=== PATIENT | male | born 1955 | race Caucasian/White ===

== ENCOUNTER 2017-10-01 20:18 | Observation (INO) ==
[2017-10-01] MEDS ORDERED: 0.9 % Sodium Chloride 500 ML IVC ONE ×2 (20:52→22:30)
[2017-10-01 21:14] LABS: Basophils % 0.4 %; Eosinophils # 0.1 K/mcL (0.0-0.6); Eosinophils % 1.1 %; Hematocrit 43.6 % (37.5-50.1); Hemoglobin 15.2 g/dL (12.9-16.9); Immature Granulocytes % 0.5 % (0-4); Mean Corpuscular HGB Conc 34.9 g/dL (31.6-35.5); Mean Corpuscular Hemoglobin 31.7 pg (28.0-33.3); Monocytes # 1.2 K/mcL (0.0-1.3); Monocytes % 11.9 %; Neutrophils # 6.9 K/mcL (1.6-8.9); Platelet Count 200 K/mcL (140-400); Red Blood Count 4.79 M/mcL (4.19-5.50); Red Cell Distribution Width 14.3 % (11.5-14.5); Segmented Neutrophils % 67.1 %
--- NOTE | 2017-10-01 21:30 | Emergency Department Note ---
Disposition Clinical Impression: Acute kidney injury Hypotension Qualifiers: Hypotension type: unspecified hypotension type Qualified Code(s): I95.9 - Hypotension, unspecified Disposition: Admitted As Inpatient Condition: Fair Time of Disposition: 00:34 General Adult HPI - General Chief complaint: ED General Medical Stated complaint: low bp Time Seen by Provider: 10/01/17 20:32 Source: patient Nursing Notes Reviewed: Yes Vital Signs Reviewed: Yes - History of Present Illness HPI Narrative: 62 old male presents from home for violation of low blood pressure. Just prior to arrival, patient felt dizzy and weak at home while sitting. He took his blood pressure twice which subsequent we sewed systolic readings in the 50s. During my valuation, his systolic blood pressure was in the 80s and he felt asymptomatic. He has no other complaints. Patient has not had any medication changes and has not taken any erroneous doses of his medications. PMH: Hypertension, hyperlipidemia, insulin independent type 2 diabetes with history of right toe amputation. CAD with stent 1. ROS: Positive: As above Negative: Fever, chills, nausea, vomiting, chest pain, palpitations, unusual back pain, trauma, headache, syncope Pain Scale: 5 - Related Data Home Medications Medication Instructions Recorded Confirmed Allopurinol [Zyloprim] 300 mg PO DAILY 02/13/15 08/26/16 Amitriptyline [Elavil] 50 mg PO HS 02/13/15 08/26/16 Aspirin 81 mg PO DAILY 02/13/15 08/26/16 Capsaicin 0.025% [Trixaicin] 1 appl TP QID 02/13/15 08/26/16 CarBAMazepine [Tegretol] 300 mg PO BID 02/13/15 08/26/16 Cholecalciferol (D-3) 1,000 unit PO DAILY 02/13/15 08/26/16 [Cholecalciferol (D-3)] Clopidogrel [Plavix] 75 mg PO DAILY 02/13/15 08/26/16 Clotrimazole 1% CRM [Lotrimin] 1 appl TP TID PRN 02/13/15 08/26/16 Divalproex (24 HR) [Depakote ER 1,500 mg PO HS 02/13/15 08/26/16 (24 HR)] Furosemide [Lasix] 120 mg PO QAM 02/13/15 08/26/16 Guaifenesin 400 mg PO BID PRN 02/13/15 08/26/16 Insulin Glargine,Hum.rec.anlog 40 unit SQ BID 02/13/15 08/26/16 [Lantus Solostar] Levothyroxine [Synthroid] 100 mcg PO 0630 02/13/15 08/26/16 Losartan [Cozaar] 100 mg PO DAILY 02/13/15 08/26/16 Magnesium Oxide [Magnesium] 400 mg PO DAILY 02/13/15 08/26/16 Metolazone [Zaroxolyn] 5 mg PO QMWF 02/13/15 08/26/16 Miconazole 2% ointment [Aloe [place] 1 appl TP TID PRN 02/13/15 08/26/16 Antifungal Ointment] Montelukast Sodium [Singulair] 10 mg PO DAILY 02/13/15 08/26/16 Oxycodone HCl [Oxycontin] 40 mg PO BID 02/13/15 08/26/16 Potassium Chloride [Klor-Con 10 meq PO DAILY 02/13/15 08/26/16 Sprinkle] Pregabalin [Lyrica] 200 mg PO TID 02/13/15 08/26/16 Rosuvastatin [Crestor] 40 mg PO HS 02/13/15 08/26/16 Spironolactone [Aldactone] 25 mg PO DAILY 02/13/15 08/26/16 Insulin Aspart Prot/Insuln Asp 16 - 18 unit SQ TID PRN 02/21/15 08/26/16 [Novolog Mix 70-30 Flexpen Syrn] Allergies Allergy/AdvReac Type Severity Reaction Status Date / Time No Known Allergies Allergy Verified 09/14/15 01:33 All systems ED: reviewed and negative except as stated. Review of Systems: As Per HPI Past Medical History - Past Medical History Medical history: Reports: arthritis, CHF, COPD, diabetes, hyperlipidemia, hypertension Psychiatric history: Reports: bipolar - Social History Smoking Status: Former smoker Smokeless Tobacco Status: No Alcohol use: Reports: none Drug use: Reports: none Physical Exam Vital Signs Reviewed General: Patient is alert, oriented, and in no acute distress. Head: atraumatic, normocephalic Eye: normal appearance, no scleral icterus, no conjunctival injection ENT: mucous membranes moist, normal external ear exam Neck: normal inspection, trachea midline, full ROM Chest: normal inspection, symmetric chest rise Respiratory: Obese. Good respiratory effort. Bilateral breath sounds are clear without wheezing, crackles, or rhonchi. Cardiovascular: Regular rate and rhythm. No clicks, rubs, gallops, or murmors. Normal heart sounds. Bilateral radial pulses 2/4 equal. Abdomen: Bowel sounds present normoactive x-4 quadrants. Abdomen is soft, nondistended, and nontender. No guarding or rebound. No organomegaly noted. Musculoskeletal: Spontaneously moving all extremities. Amputation of all toes on right foot. Skin: warm, dry, intact. Neuro: Alert and oriented x4. Sensation light touch intact. Psych: Patient's affect is appropriate for situation. - General General appearance: alert Course Course Narrative: EKG dated 10/01/17 at 20:43 interpreted as sinus rhythm with rate of 90. ME 153 , tourist 82, QTC 436. Normal axis. Nonspecific ST-T changes. Compared to previous dated 09/14/2015 showing no acute ischemic changes or comparison. Lab work concerning for acute kidney injury. Patient has received 2 boluses of 500 mg each (1 L total). Regimen clear. Systolic blood pressure is in the high 80s. Concerned that his acute kidney injury has slowed metabolism of his standard antihypertensives causing him to become hypotensive. Discussed the above the patient and he is agreement to admission for continued evaluation and management. I discussed the patient with the admitting hospitalist, Dr. Matson, who agrees to accept the patient for continued evaluation and management. Vital Signs Temperature 97.9 F 10/01/17 20:19 Pulse Rate 104 10/01/17 20:19 Respiratory Rate 20 10/01/17 20:19 Blood Pressure 88/55 10/01/17 20:19 O2 Sat by Pulse Oximetry 95 10/01/17 20:19 Temperature 98.3 F 10/02/17 00:00 Pulse Rate 92 10/02/17 00:00 Respiratory Rate 14 10/02/17 00:00 Blood Pressure 114/54 10/02/17 00:00 O2 Sat by Pulse Oximetry 95 10/02/17 00:00 Oxygen Delivery Oxygen Delivery Nasal Cannula Medical Decision Making - Lab Data Result diagrams: 10/01/17 21:02 10/01/17 21:02 Lab Results 10/01/17 10/01/17 10/01/17 Range/Units 21:02 21:02 21:02 WBC 10.2 (4.3-11.1) K/mcL RBC 4.79 (4.19-5.50) M/mcL Hgb 15.2 (12.9-16.9) g/dL Hct 43.6 (37.5-50.1) % MCV 91.0 (83.0-100.0) fL MCH 31.7 (28.0-33.3) pg MCHC 34.9 (31.6-35.5) g/dL RDW 14.3 (11.5-14.5) % Plt Count 200 (140-400) K/mcL MPV 11.0 (9.4-12.4) fL Immature Gran % 0.5 (0-4) % Seg Neutrophils % 67.1 % Lymphocytes % 19.0 % Monocytes % 11.9 % Eosinophils % 1.1 % Basophils % 0.4 % Neutrophils # 6.9 (1.6-8.9) K/mcL Lymphocytes # 2.0 (0.6-4.6) K/mcL Monocytes # 1.2 (0.0-1.3) K/mcL Eosinophils # 0.1 (0.0-0.6) K/mcL Basophils # 0.0 (0.0-0.2) K/mcL Sodium 133 L (136-145) mEq/L Potassium 3.5 (3.5-5.1) mEq/L Chloride 84 L (98-107) mEq/L Carbon Dioxide 35 H (23-29) mEq/L BUN 62 H (8-23) mg/dL Creatinine 3.04 H (0.70-1.30) mg/dL Est GFR ( Amer) 25 L (> 60) Est GFR (Non-Af Amer) 21 L (> 60) BUN/Creatinine Ratio 20 (6-26) Glucose 187 H (70-105) mg/dL Calculated Osmolality 299 (280-300) Lactic Acid 2.9 H (0.5-2.2) mmol/L Calcium 9.5 (8.6-10.3) mg/dL Troponin I < 0.03 (< 0.04) ng/mL
[2017-10-01 21:33] LABS: BUN/Creatinine Ratio 20 (6-26); Blood Urea Nitrogen 62 mg/dL (8-23); Calcium 9.5 mg/dL (8.6-10.3); Carbon Dioxide 35 mEq/L (23-29); Chloride 84 mEq/L (98-107); Glucose 187 mg/dL (70-105); Osmolality,Calculated 299 (280-300); Potassium 3.5 mEq/L (3.5-5.1); Sodium 133 mEq/L (136-145); eGFR For African Americans 25 (> 60); eGFR For Non-African Americans 21 (> 60)
[2017-10-01 21:35] LABS: Troponin I < 0.03 ng/mL (< 0.04)
--- NOTE | 2017-10-01 21:47 | Emergency Department Note ---
Disposition Clinical Impression: Hypotension Qualifiers: Hypotension type: unspecified hypotension type Qualified Code(s): I95.9 - Hypotension, unspecified Disposition: Still a Patient Forms: ED Satisfaction Letter, Work/School Release General Adult HPI - General Chief complaint: ED General Medical Stated complaint: low bp Time Seen by Provider: 10/01/17 20:32 Source: patient - History of Present Illness Pain Scale: 5 - Related Data Home Medications Medication Instructions Recorded Confirmed Allopurinol [Zyloprim] 300 mg PO DAILY 02/13/15 08/26/16 Amitriptyline [Elavil] 50 mg PO HS 02/13/15 08/26/16 Aspirin 81 mg PO DAILY 02/13/15 08/26/16 Capsaicin 0.025% [Trixaicin] 1 appl TP QID 02/13/15 08/26/16 CarBAMazepine [Tegretol] 300 mg PO BID 02/13/15 08/26/16 Cholecalciferol (D-3) 1,000 unit PO DAILY 02/13/15 08/26/16 [Cholecalciferol (D-3)] Clopidogrel [Plavix] 75 mg PO DAILY 02/13/15 08/26/16 Clotrimazole 1% CRM [Lotrimin] 1 appl TP TID PRN 02/13/15 08/26/16 Divalproex (24 HR) [Depakote ER 1,500 mg PO HS 02/13/15 08/26/16 (24 HR)] Furosemide [Lasix] 120 mg PO QAM 02/13/15 08/26/16 Guaifenesin 400 mg PO BID PRN 02/13/15 08/26/16 Insulin Glargine,Hum.rec.anlog 40 unit SQ BID 02/13/15 08/26/16 [Lantus Solostar] Levothyroxine [Synthroid] 100 mcg PO 0630 02/13/15 08/26/16 Losartan [Cozaar] 100 mg PO DAILY 02/13/15 08/26/16 Magnesium Oxide [Magnesium] 400 mg PO DAILY 02/13/15 08/26/16 Metolazone [Zaroxolyn] 5 mg PO QMWF 02/13/15 08/26/16 Miconazole 2% ointment [Aloe [place] 1 appl TP TID PRN 02/13/15 08/26/16 Antifungal Ointment] Montelukast Sodium [Singulair] 10 mg PO DAILY 02/13/15 08/26/16 Oxycodone HCl [Oxycontin] 40 mg PO BID 02/13/15 08/26/16 Potassium Chloride [Klor-Con 10 meq PO DAILY 02/13/15 08/26/16 Sprinkle] Pregabalin [Lyrica] 200 mg PO TID 02/13/15 08/26/16 Rosuvastatin [Crestor] 40 mg PO HS 02/13/15 08/26/16 Spironolactone [Aldactone] 25 mg PO DAILY 02/13/15 08/26/16 Insulin Aspart Prot/Insuln Asp 16 - 18 unit SQ TID PRN 02/21/15 08/26/16 [Novolog Mix 70-30 Flexpen Syrn] Allergies Allergy/AdvReac Type Severity Reaction Status Date / Time No Known Allergies Allergy Verified 09/14/15 01:33 Past Medical History - Past Medical History Medical history: Reports: arthritis, CHF, COPD, diabetes, hyperlipidemia, hypertension Psychiatric history: Reports: bipolar - Social History Smoking Status: Former smoker Smokeless Tobacco Status: No Alcohol use: Reports: none Drug use: Reports: none Physical Exam - General General appearance: alert Course - Reevaluation(s) Reevaluation #1: Attestation note I examined this patient and my medical decision-making was reviewed with the emergency medicine resident. I agree with the documented findings, disposition and treatment plan as described except to the extent set forth below. Patient seen with emergency medicine resident Danyel Ron, Please see a copy of his note for details of the H&P, ED evaluation, management and disposition. I have independently evaluated the patient and confirmed appropriate portions of the history and physical exam. Briefly: 62-year-old male diabetic history of hypertension and chronic kidney disease presents with low blood pressure. Patient said he was in his usual [facility] until prior to arrival he said he felt weak and tired and lightheaded took his blood pressure with systolic BP at home. Which was confirmed here. Patient says he feels tired. Denies nausea vomiting fevers chills recent medication changes X exotic food recreational drugs or ill contacts. Patient getting IV fluid bolus screening labs x-ray disposition pending. Time: 21:45 Vital Signs Temperature 97.9 F 10/01/17 20:19 Pulse Rate 104 10/01/17 20:19 Respiratory Rate 20 10/01/17 20:19 Blood Pressure 88/55 10/01/17 20:19 O2 Sat by Pulse Oximetry 95 10/01/17 20:19 Temperature 97.9 F 10/01/17 20:22 Pulse Rate 104 10/01/17 20:22 Respiratory Rate 20 10/01/17 20:22 Blood Pressure 88/55 10/01/17 20:22 O2 Sat by Pulse Oximetry 95 10/01/17 20:22 Oxygen Delivery Oxygen Delivery Room Air Medical Decision Making - Lab Data Result diagrams: 10/01/17 21:02 10/01/17 21:02 Lab Results 10/01/17 10/01/17 10/01/17 Range/Units 21:02 21:02 21:02 WBC 10.2 (4.3-11.1) K/mcL RBC 4.79 (4.19-5.50) M/mcL Hgb 15.2 (12.9-16.9) g/dL Hct 43.6 (37.5-50.1) % MCV 91.0 (83.0-100.0) fL MCH 31.7 (28.0-33.3) pg MCHC 34.9 (31.6-35.5) g/dL RDW 14.3 (11.5-14.5) % Plt Count 200 (140-400) K/mcL MPV 11.0 (9.4-12.4) fL Immature Gran % 0.5 (0-4) % Seg Neutrophils % 67.1 % Lymphocytes % 19.0 % Monocytes % 11.9 % Eosinophils % 1.1 % Basophils % 0.4 % Neutrophils # 6.9 (1.6-8.9) K/mcL Lymphocytes # 2.0 (0.6-4.6) K/mcL Monocytes # 1.2 (0.0-1.3) K/mcL Eosinophils # 0.1 (0.0-0.6) K/mcL Basophils # 0.0 (0.0-0.2) K/mcL Sodium 133 L (136-145) mEq/L Potassium 3.5 (3.5-5.1) mEq/L Chloride 84 L (98-107) mEq/L Carbon Dioxide 35 H (23-29) mEq/L BUN 62 H (8-23) mg/dL Creatinine 3.04 H (0.70-1.30) mg/dL Est GFR ( Amer) 25 L (> 60) Est GFR (Non-Af Amer) 21 L (> 60) BUN/Creatinine Ratio 20 (6-26) Glucose 187 H (70-105) mg/dL Calculated Osmolality 299 (280-300) Lactic Acid 2.9 H (0.5-2.2) mmol/L Calcium 9.5 (8.6-10.3) mg/dL Troponin I < 0.03 (< 0.04) ng/mL
[2017-10-02 01:52] LABS: Bilirubin,Urine Negative (Negative); Blood,Urine Trace (Negative); Clarity,Urine Clear (Clear); Color,Urine Yellow (Yellow); Glucose,Urine (UA) Normal (Normal); Ketones,Urine Negative (Negative); Leukocyte Esterase,Urine Negative (Negative); Nitrite,Urine Negative (Negative); Protein,Urine Trace mg/dL (Neg-Trace); Specific Gravity,Urine 1.013 (1.010-1.025); Urobilinogen,Urine Normal (Normal)
[2017-10-02 01:55] LABS: Bacteria,Urine None Seen per hpf (None-Few); Hyaline Casts,Urine None Seen per lpf (None-Few); RBC,Urine 0-3 per hpf (0-3); Squamous Epithelial Cell,Urine Many per lpf (None-Few); WBC,Urine 0-3 per hpf (0-3)
[2017-10-02] MEDS ORDERED: Naloxone 0.4 MG/ML INJ IVP PRN (02:43)
[2017-10-02] MEDS ORDERED: D5% in Water 1,000 ML IVC PRN (02:43)
[2017-10-02] MEDS ORDERED: Dextrose Gel 15 GM/37.5 ML TUBE PO PRN ×2 (02:43)
[2017-10-02] MEDS ORDERED: *HR* Dextrose 50 % in Water (Syg) 50 ML SYRINGE IVP PRN (02:43)
[2017-10-02] MEDS ORDERED: Acetaminophen 325 MG TABLET PO PRN (02:43)
[2017-10-02] MEDS: 0.9 % Sodium Chloride 1,000 ML IVC SCH ×2 (03:03→14:28)
[2017-10-02] MEDS ORDERED: 0.9 % Sodium Chloride 1,000 ML IVC ONE (03:35)
--- NOTE | 2017-10-02 04:01 | Internal Med History&Physical ---
Date of Encounter: 10/02/17 Time of Encounter: 02:20 Internal Medicine - H&P: HPI Chief complaint: low BP, weak Admitted From: Emergency Dept Plans for Post Hospital Care: Home History of present illness: Mr. Edmondson is a 62 year old male who presents to the ER tonight with complaints of feeling weak and low blood pressure. He was taking a midafternoon nap and when he awoke from his nap, he was checking his glucose and noted feeling quite weak and lightheaded and dizzy. Glucose level was 170. He checked his blood pressure and it was running in the 60s systolic. He checked again, and it still remained low. His therefore brought into the ER. In the ER, blood pressure was in the 50s systolic and responded nicely to 2 small IV fluid boluses of 500 mils. Workup in ER revealed patient to have evidence of acute renal failure with a creatinine of 3.04. He does have CKD, but his renal function baseline is about 1.4 to 1.8. He was therefore admitted to hospitalist service. Upon my assessment of the patient, he is sitting up in bed and asymptomatic. He denies any fevers, chills, cough, shortness of breath, chest pain, vomiting, or diarrhea. He denies any recent medication changes. He is on multiple medications including antihypertensives, multiple diuretics, and diabetic medications. He denies working outside in excessive heat with excessive sweat. He denies any other volume loss. However, he is on multiple diuretics and I am concerned that over time, he might have had excessive volume loss. Past Med Surg Social Fam HX - Past Medical History Attestation: Yes The following information was validated with the patient. Source: patient, old records reviewed Medical history: arthritis, CHF, COPD, diabetes, hyperlipidemia, hypertension Additional medical history: PERIPHERAL VASCULAR DISEASE, NEUROPOTHY, Psychiatric history: bipolar - Past Surgical History Additional surgical history: LEFT TOE AMPUTATION, RIGHT FOOT AMPUTATION, TENS IMPLANT - Social History Smoking Status: Former smoker Smokeless Tobacco Status: No Alcohol use: none Drug use: none Current living situation: Home, With Family Activity Level: Independent ambulation Recent Out of Country Travel Within the Last 8 Weeks: No - Family History Father History Unknown: Yes Adopted: No Family Member Ethnicity: Non- Living Status: Hx Family Cardiac Disorders: Yes (Heart murmur) Internal Medicine - H&P: Meds Allopurinol [Zyloprim] 300 mg PO DAILY 02/13/15 [History] Amitriptyline [Elavil] 50 mg PO HS 02/13/15 [History] Aspirin 81 mg PO DAILY 02/13/15 [History] Capsaicin 0.025% [Trixaicin] 1 appl TP QID 02/13/15 [History] CarBAMazepine [Tegretol] 300 mg PO BID 02/13/15 [History] Cholecalciferol (D-3) [Cholecalciferol (D-3)] 1,000 unit PO DAILY 02/13/15 [ History] Clopidogrel [Plavix] 75 mg PO DAILY 02/13/15 [History] Clotrimazole 1% CRM [Lotrimin] 1 appl TP TID PRN 02/13/15 [History] Divalproex (24 HR) [Depakote ER (24 HR)] 1,500 mg PO HS 02/13/15 [History] Furosemide [Lasix] 120 mg PO QAM 02/13/15 [History] Guaifenesin 400 mg PO BID PRN 02/13/15 [History] Insulin Glargine,Hum.rec.anlog [Lantus Solostar] 40 unit SQ BID 02/13/15 [ History] Levothyroxine [Synthroid] 100 mcg PO 0630 02/13/15 [History] Losartan [Cozaar] 100 mg PO DAILY 02/13/15 [History] Magnesium Oxide [Magnesium] 400 mg PO DAILY 02/13/15 [History] Metolazone [Zaroxolyn] 5 mg PO QMWF 02/13/15 [History] Miconazole 2% ointment [Aloe [place] Antifungal Ointment] 1 appl TP TID PRN [History] Montelukast Sodium [Singulair] 10 mg PO DAILY 02/13/15 [History] Oxycodone HCl [Oxycontin] 40 mg PO BID 02/13/15 [History] Potassium Chloride [Klor-Con Sprinkle] 10 meq PO DAILY 02/13/15 [History] Pregabalin [Lyrica] 200 mg PO TID 02/13/15 [History] Rosuvastatin [Crestor] 40 mg PO HS 02/13/15 [History] Spironolactone [Aldactone] 25 mg PO DAILY 02/13/15 [History] Insulin Aspart Prot/Insuln Asp [Novolog Mix 70-30 Flexpen Syrn] 16 - 18 unit SQ TID PRN 02/21/15 [History] 3 Allergy/AdvReac Type Severity Reaction Status Date / Time No Known Allergies Allergy Verified 09/14/15 01:33 - Constitutional Constitutional: no chills, no fever(s), no night sweats - EENT Eyes: no blurry vision, no change in vision Ears: no ear pain, no tinnitus Nose, mouth and throat: no nasal congestion, no sore throat - Cardiovascular Cardiovascular ROS IM: diaphoresis, lightheadedness, no chest pain, no dyspnea, no dyspnea on exertion, no orthopnea, no palpitations, no paroxysmal nocturnal dyspnea, no syncope - Respiratory Respiratory: no cough, no dyspnea, no hemoptysis, no chest congestion, no excessive phlegm production - Gastrointestinal Gastrointestinal: no abdominal pain, no diarrhea, no hematemesis, no hematochezia, no melena, no nausea, no vomiting - Genitourinary Genitourinary ROS male: no dysuria, no flank pain, no hematuria - Musculoskeletal Musculoskeletal ROS IM: no arthralgias, no back pain - Integumentary Integumentary IM: no rash, no jaundice - Neurological Neurological ROS: dizziness, no focal weakness, no frequent falls, no headache(s ), no weakness - Psychiatric Psychiatric: no anxiety, no depression - Endocrine Endocrine IM: no polydipsia, no polyuria - Allergic/Immunologic Allergic/Immunologic: no GI upset with certain foods - Constitutional Vitals: Temp Pulse Resp BP Pulse Ox 98.4 F 92 16 71/42 88 10/02/17 03:14 10/02/17 00:00 10/02/17 03:14 10/02/17 03:16 10/02/17 03:14 General appearance: Present: cooperative, A&O X 3, pleasant, no acute distress, answers questions appropriately - Head Head exam: Present: atraumatic, normal inspection - Eye Eye exam: Present: EOMI, normal appearance, PERRL. Absent: scleral icterus Pupils: Present: normal accommodation - ENT ENT exam: Present: mucous membranes dry, normal exam, normal oropharynx - Neck Neck exam general surgery: Present: full ROM, supple. Absent: lymphadenopathy, tenderness, nuchal rigidity, thyromegaly - Expanded Neck Exam Neck exam: Absent: carotid bruit - Respiratory Respiratory exam: Present: CTAB. Absent: chest wall tenderness, rales, respiratory distress, rhonchi, wheezes - Cardiovascular Cardiovascular exam: Present: RRR, +S1, +S2. Absent: diastolic murmur, JVD, systolic murmur - GI/Abdominal GI/Abdominal exam: Present: normal bowel sounds, soft. Absent: hepatomegaly, mass, splenomegaly, tenderness - Extremities Exam Extremities exam: Present: normal capillary refill, warm, radial pulses palpable and symmetrical. Absent: calf tenderness, joint swelling - Back Exam Back exam: Present: normal inspection. Absent: CVA tenderness (L), CVA tenderness (R) - Neurological Exam Neurological exam: Present: alert, CN II-XII intact, oriented X3, no focal deficits - Psychiatric Psychiatric exam: Present: normal affect, normal mood - Skin Skin exam: Present: dry, intact, warm Additional comments: palpable TENS unit in right mid abdomen Internal Med - H&P Results - Labs CBC & Chem 7: 10/01/17 21:02 10/01/17 21:02 Labs: Urine 10/02/17 Range/Units 01:40 Urine Color Yellow (Yellow) Urine Clarity Clear (Clear) Urine pH 7.0 (5.0-8.0) pH Units Ur Specific [place] 1.013 (1.010-1.025) Urine Protein Trace (Neg-Trace) mg/dL Urine Glucose (UA) Normal (Normal) mg/dL - EKG Data -: EKG Interpreted by Myself EKG shows normal: sinus rhythm - EKG Data Prior EKG available for review: yes When compared to previous EKG: there is no significant change EKG comments: 10/02/17 04:06 NSR; no acute changes - Diagnostic Studies Chest x-ray Status: image reviewed by me - Assessment and plan (1) Hypotension Current Visit: Yes Status: Acute Assessment and plan: 1. Suspect medication effect/possible unintentional overdose. 2. Hold BP meds and diuretics. 3. Hydrate with IVF and monitor BP closely. 4. No history or exam findings to suggest infectious etiology. Qualifiers: Hypotension type: hypotension due to hypovolemia Qualified Code(s): I95.89 - Other hypotension; E86.1 - Hypovolemia (2) Acute kidney injury Current Visit: Yes Status: Acute Assessment and plan: 1. Likely due yo volume loss and hypotension. 2. IVF as above. 3. Hold BP meds and monitor renal function. 4. May need nephrology consult if renal function does not improve. (3) Diabetes mellitus Current Visit: Yes Status: Chronic Assessment and plan: 1. Continue home basal insulin once verified. 2. Will use low dose SSI and monitor glucose closely with insulin adjustment as needed. Qualifiers: Diabetes mellitus type: type 1 Diabetes mellitus complication status: with circulatory complication Diabetes mellitus complication detail: with other circulatory complications Qualified Code(s): E10.59 - Type 1 diabetes mellitus with other circulatory complications (4) DVT prophylaxis Current Visit: Yes Status: Acute Assessment and plan: 1. Heparin SQ.
[2017-10-02 05:32] LABS: Prothrombin Time 11.2 Seconds (9.4-12.1)
[2017-10-02 05:35] LABS: Activated Partial Thrombo Time 33.2 Seconds (26.0-36.0)
[2017-10-02 05:43] LABS: Alanine Aminotransferase 14 Units/L (7-52); Albumin/Globulin Ratio 1.4 (1.1-2.2); Alkaline Phosphatase 77 Units/L (34-104); Aspartate Amino Transferase 20 Units/L (13-39); BUN/Creatinine Ratio 23 (6-26); Bilirubin,Total 0.6 mg/dL (0.3-1.0); Blood Urea Nitrogen 62 mg/dL (8-23); Calcium 8.7 mg/dL (8.6-10.3); Carbon Dioxide 32 mEq/L (23-29); Chloride 89 mEq/L (98-107); Globulin 2.8 g/dL (2.4-3.5); Glucose 140 mg/dL (70-105); Osmolality,Calculated 292 (280-300); Sodium 131 mEq/L (136-145); Total Protein 6.8 g/dL (6.4-8.9); Troponin I < 0.03 ng/mL (< 0.04); eGFR For African Americans 29 (> 60); eGFR For Non-African Americans 24 (> 60)
[2017-10-02] MEDS: Insulin LISPRO 300 UNITS/3 ML VIAL SQ SCH ×3 (07:54→16:41)
[2017-10-02] MEDS: *HR* OxyCODONE/APAP 5/325 TABLET PO PRN (10:53)
[2017-10-02] MEDS: Pregabalin 75 MG CAPSULE PO SCH ×2 (11:16→21:20)
--- NOTE | 2017-10-02 15:33 | Internal Med Progress Note ---
Date of Encounter: 10/02/17 Time of Encounter: 15:30 - Assessment and plan (1) Hypotension Current Visit: Yes Status: Acute Assessment and plan: with SBPs in 50s-60s on arrival. Possibly secondary to medication effect/ possible unintentional overdose. BP improving with IV fluids. Continue to hold BP medication and diuretics. Afebrile, no levator WBC, no tachycardia. Appears to have some cellulitis lower extremity but do not suspect infectious source is cause of hypotension. Continue IV fluids. Monitor BP Qualifiers: Hypotension type: hypotension due to hypovolemia Qualified Code(s): I95.89 - Other hypotension; E86.1 - Hypovolemia (2) Acute kidney injury Current Visit: Yes Status: Acute Assessment and plan: Cr 3.04 on arrival. Suspect he has some component of CTD creatinine range from 1.1-2.0 since 2015. Suspect prerenal with hypotension. Avoid nephrotoxic agents. Continue IV fluids. Monitor repeat renal function. (3) Cellulitis Current Visit: Yes Status: Acute Assessment and plan: to bilateral lower extremities; appears worse to the left leg. No recent ATB. Follows with podiatry at the [place]. Start ceftriaxone. Qualifiers: Site of cellulitis: extremity Laterality: left Qualified Code(s): L03.032 - Cellulitis of left toe (4) Diabetes mellitus Current Visit: Yes Status: Chronic Assessment and plan: per hx. Holding home oral hypo-Lasix. SSI. Monitor blood sugar and titrate PRN. Hgb A1c pending Qualifiers: Diabetes mellitus type: type 1 Diabetes mellitus complication status: with circulatory complication Diabetes mellitus complication detail: with other circulatory complications Qualified Code(s): E10.59 - Type 1 diabetes mellitus with other circulatory complications (5) Chronic pain Current Visit: Yes Status: Acute Assessment and plan: Chronic lower extremity pain. On Percocet, OxyContin and Lyrica at home. OAARS verified 10/02/17. Continue home pain medicine cautiously as BP has been hypotensive Qualifiers: Chronic pain type: chronic pain syndrome Qualified Code(s): G89.4 - Chronic pain syndrome (6) Seizure Current Visit: Yes Status: Acute Assessment and plan: per hx. continue home AEDs. Seizure percussions. (7) DVT prophylaxis Current Visit: Yes Status: Acute Assessment and plan: heparin - Time Spent With Patient Total time spent is greater than 50% in coordination of care (as documented) at patient's floor/unit and/or counseling patient: - Subjective Interval history: Seen and examined at bedside. Patient is new to me, information obtained from chart review and patient report. Patient and at bedside and are upset regarding his pain medication. I advised patient and that we do not have a current list of his medication that is why occasions were not resumed in a timely manner. Furthermore I did run an oars report earlier this morning and was able to verify pain medications and those were reordered. Patient says he feels about the same. Still complaining of left lower leg pain. - Constitutional Vitals: Temp Pulse Resp BP Pulse Ox 98.8 F 93 18 105/55 93 10/02/17 11:45 10/02/17 11:45 10/02/17 11:45 10/02/17 11:45 10/02/17 11:45 General appearance: Present: cooperative, A&O X 3, no acute distress, answers questions appropriately. Absent: pleasant - Head Head exam: Present: atraumatic, normocephalic - Eye Eye exam: Present: PERRL, conjuntiva pink, sclera anicteric Pupils: Present: PERRL - Neck Neck exam general surgery: Present: supple, trachea midline. Absent: lymphadenopathy - Respiratory Respiratory exam: Present: CTAB. Absent: accessory muscle use, rales, rhonchi, wheezes - Cardiovascular Cardiovascular exam: Present: RRR, +S1, +S2. Absent: diastolic murmur, gallop, rubs, systolic murmur - GI/Abdominal GI/Abdominal exam: Present: normal bowel sounds, soft, no peritoneal signs. Absent: distended, tenderness - Extremities Exam Extremities exam: Present: pedal edema, warm, radial pulses palpable and symmetrical. Absent: calf tenderness, cyanotic Additional comments: I lateral lower extremity edema with right foot partial amputation and digit indication of left foot. Erythema to left foot. - Neurological Exam Neurological exam: Present: CN II-XII intact, oriented X3, no focal deficits. Absent: pronater drift, facial droop, speech deficit - Skin Skin exam: Present: dry, intact Internal Medicine: Result - Labs CBC & Chem 7: 10/01/17 21:02 10/02/17 05:10 Labs: BMP 10/02/17 05:10 Sodium 131 L Potassium 3.0 L Chloride 89 L Carbon Dioxide 32 H BUN 62 H Creatinine 2.71 H Glucose 140 H Calcium 8.7 Cardiac Enzymes 10/02/17 10/02/17 Range/Units 05:10 11:13 Troponin I < 0.03 < 0.03 (< 0.04) ng/mL Liver Function 10/02/17 Range/Units 05:10 Total Bilirubin 0.6 (0.3-1.0) mg/dL AST 20 (13-39) Units/L ALT 14 (7-52) Units/L Alkaline Phosphatase 77 (34-104) Units/L Albumin 4.0 (3.5-5.7) g/dL Urine 10/02/17 Range/Units 01:40 Urine Color Yellow (Yellow) Urine Clarity Clear (Clear) Urine pH 7.0 (5.0-8.0) pH Units Ur Specific [place] 1.013 (1.010-1.025) Urine Protein Trace (Neg-Trace) mg/dL Urine Glucose (UA) Normal (Normal) mg/dL - ABG Interpretation ABG results: PT/INR, D-dimer PT 11.2 Seconds (9.4-12.1) 10/02/17 05:10 Consult Discharge Plan - Plan [facility]errals: [facility] [Primary Care Provider[facility] -
[2017-10-02] MEDS: *HR* OxyCODONE ER (12 HR) 20 MG TABLET PO SCH (16:06)
[2017-10-02] MEDS: cefTRIAXone 1,000 MG in Water for inj. (sterile) 20 ML 10 ML IVP SCH (16:06)
[2017-10-02] MEDS ORDERED: *HR* OxyCODONE ER (12 HR) 20 MG TABLET PO SCH (18:00)
[2017-10-02] MEDS ORDERED: Divalproex (24 HR) 500 MG TABLET PO SCH (21:00)
[2017-10-02] MEDS: *HR* Heparin 5,000 UNIT/ML VIAL SQ SCH (21:20)
[2017-10-02] MEDS: carBAMazepine 200 MG TABLET PO SCH (21:21)
[2017-10-03] MEDS: *HR* OxyCODONE/APAP 5/325 TABLET PO PRN (00:09)
[2017-10-03] MEDS: 0.9 % Sodium Chloride 1,000 ML IVC SCH ×2 (00:13→10:15)
[2017-10-03 05:02] LABS: Hematocrit 38.9 % (37.5-50.1); Mean Corpuscular Hemoglobin 31.9 pg (28.0-33.3); Mean Corpuscular Volume 91.3 fL (83.0-100.0); Mean Platelet Volume 10.2 fL (9.4-12.4); Platelet Count 135 K/mcL (140-400); Red Blood Count 4.26 M/mcL (4.19-5.50)
[2017-10-03 05:03] LABS: Hemoglobin 13.6 g/dL (12.9-16.9)
[2017-10-03 05:28] LABS: Calcium 8.9 mg/dL (8.6-10.3); Potassium 3.5 mEq/L (3.5-5.1)
[2017-10-03] MEDS: *HR* Heparin 5,000 UNIT/ML VIAL SQ SCH ×2 (06:02→13:06)
[2017-10-03] MEDS: *HR* OxyCODONE ER (12 HR) 20 MG TABLET PO SCH (06:02)
[2017-10-03] MEDS: Insulin LISPRO 300 UNITS/3 ML VIAL SQ SCH ×3 (08:11→16:20)
[2017-10-03] MEDS: Pregabalin 75 MG CAPSULE PO SCH (08:12)
[2017-10-03] MEDS: carBAMazepine 200 MG TABLET PO SCH (08:12)
[2017-10-03] MEDS ORDERED: Aspirin Enteric Coated 81 MG Tablet PO SCH (09:00)
[2017-10-03] MEDS ORDERED: Leptospermum Honey Gel 44 ML TUBE TP SCH (09:00)
[2017-10-03 09:29] LABS: Estimated Average Glucose 157 mg/dl; Hemoglobin A1C 7.1 %
--- NOTE | 2017-10-03 10:02 | Electrocardiograph Report ---
[place] [id number] Test Date: 2017-10-01 Pat Name: Terrell Edmondson Department: 104 Room: 3B Gender: M [employer]: NATALIE : 1955 Requested By: Krish Khan Order Number: [id number] Reading MD: David Juarez Measurements Intervals [place] Rate: 90 P: 45 CA: 153 QRS: 45 QRSD: 92 T: 55 QT: 388 QTc: 436 Interpretive Statements SINUS RHYTHM LOW QRS VOLTAGE IN PRECORDIAL LEADS Electronically Signed On 10-03-2017 10:00:05 EDT by David Juarez
--- NOTE | 2017-10-03 11:55 | Nephrology Consult Note ---
Date of Encounter: 10/03/17 Time of Encounter: 12:00 Assessment and Plan (1) Acute kidney injury Status: Acute Elevated SCr in the setting of profound hypotension while on high dose diuretics SCr already improving though baseline unclear. Pt wants to go home today and given improvement seems reasonable. Discussed at great lengths need for low sodium diet for his CHF management along with fluid restriction Will also adjust his diuretics: will stop lasix and switch to bumex 2mg bid, stop zaroxylyn and continue aldactone 25mg daily. Will like to followup with patient within 2-[facility] of fluid balance Advised avoidance of nephrotoxins if possible (2) Hypotension Status: Acute Resolved after aggressive fluid repletion Qualifiers: Hypotension type: hypotension due to hypovolemia Qualified Code(s): I95.89 - Other hypotension; E86.1 - Hypovolemia History of Present Illness - Reason for Consult Consult date: 10/03/17 Acute Kidney Injury Requesting physician: Raisa Willoughby - History of Present Illness 62 y o male With PMH of DM, HTN, COPD and CHF admitted with generalized weakness found very hypotensive. SCR noted elevated at 3.04, GFR 21. Baseline unclear as ther are no other labs in the [facility] system this year. Last year GFR noted >60 on only one lab and previous years show GFR fluctuating from 30s to 40s to 50s. SCr already improving by the time I saw patient with SCr at 1.89, GFR 36 after aggresive volume repletion and holding his diuretics and antihypertensives. Of note, pt was taking high dose lasix at 120mg qam and 80mg qpm along with zaroxylyn 5mg daily and aldactone 25mg daily. He reports feeling thirsty alot but was also concerned about having recurrent CHF exacerbations. Past Med Surg Social Fam HX - Past Medical History Medical history: arthritis, CHF, COPD, diabetes, hyperlipidemia, hypertension Additional medical history: PERIPHERAL VASCULAR DISEASE, NEUROPOTHY, Psychiatric history: bipolar - Past Surgical History Additional surgical history: LEFT TOE AMPUTATION, RIGHT FOOT AMPUTATION, TENS IMPLANT - Social History Smoking Status: Former smoker Smokeless Tobacco Status: No Alcohol use: none Drug use: none - Family History Father History Unknown: Yes Adopted: No Family Member Ethnicity: Non- Living Status: Hx Family Cardiac Disorders: Yes (Heart murmur) Medications and Allergies Allopurinol [Zyloprim] 300 mg PO BID 10/02/17 [History] Amitriptyline [Elavil] 50 mg PO HS 10/02/17 [History] Aspirin [Lo-Dose Aspirin EC] 81 mg PO DAILY 10/02/17 [History] Cholecalciferol (D-3) [Vitamin D] 1,000 unit PO DAILY 10/02/17 [History] Divalproex (24 HR) [Depakote ER (24 HR)] 1,500 mg PO HS 10/02/17 [History] Magnesium Oxide [Magnesium] 400 mg PO DAILY 10/02/17 [History] Montelukast [Singulair] 10 mg PO DAILY 10/02/17 [History] OxyCODONE ER (12 HR) [OxyCONTIN] 40 mg PO Q12HR 10/02/17 [History] Oxycodone HCl/Acetaminophen [Percocet 5-325 mg Tablet] 1 tab PO QID PRN [History] Pregabalin [Lyrica] 150 mg PO BID 10/02/17 [History] Rosuvastatin Calcium [Crestor] 40 mg PO DAILY 10/02/17 [History] carBAMazepine [Tegretol] 300 mg PO BID 10/02/17 [History] Bumetanide [Bumex] 2 mg PO BID #60 tablet 10/03/17 [Rx] Spironolactone [Aldactone] 25 mg PO DAILY #30 tablet 10/03/17 [Rx] 3 Allergy/AdvReac Type Severity Reaction Status Date / Time No Known Allergies Allergy Verified 09/14/15 01:33 Review of Systems All Systems: reviewed and no additional remarkable complaints except as stated ( 10 systems reviewed) Exam - Vital Signs Vital signs: Initial Vital Signs Temp Pulse Resp BP Pulse Ox 97.9 F 104 20 88/55 95 10/01/17 20:19 10/01/17 20:19 10/01/17 20:19 10/01/17 20:19 10/01/17 20:19 Vital Signs - Last 8 Hours Temp Pulse Resp BP Pulse Ox 10/03/17 11:34 97.8 F 83 14 130/72 93 10/03/17 08:20 96 10/03/17 07:25 97.7 F 74 16 159/81 96 10/03/17 03:52 97.8 F 70 16 138/69 95 Intake and Output 10/02/17 10/03/17 10/03/17 23:59 07:59 15:59 Intake Total 480 / 480 1000 / 1000 1360 / 1360 Output Total 1875 / 1875 1750 / 1750 0 / 0 Balance -1395 / -1395 -750 / -750 1360 / 1360 Intake: IV Fluids 1000 / 1000 1000 / 1000 0.9 % Sodium Chloride 1,000 ML 1000 / 1000 1000 / 1000 @ 100 mls/hr IVC .Q10H PATT[facility] Rx#: [id number] Oral 480 / 480 360 / 360 Output: Urine 1875 / 1875 1750 / 1750 0 / 0 Other: Meal Breakfast Percent of Meal Consumed 100% Stool Size Moderate # Voids 1 # Bowel Movements 1 Weight 144.7 kg Blood Glucose* 245 187 218 Patient Weight 10/03/17 23:59 Weight 144.7 kg - General Appearance General appearance: well-developed, well-nourished, obese EENT: ATNC, mucous membranes moist Neck: no JVD, supple Respiratory: clear Cardiology: no edema, normal S1, normal S2 Gastrointestinal: no tenderness, no guarding, obese Integumentary: warm and dry Neurologic: no focal deficit Musculoskeletal: no deformities Psychiatric: mood/affect appropriate, cooperative Results - Lab Results 10/03/17 04:47 10/03/17 04:47 Most recent lab results Calcium 8.9 mg/dL (8.6-10.3) 10/03/17 04:47 Magnesium 2.0 mg/dL (1.6-2.6) 10/02/17 05:10 Consult Discharge Plan - Plan Instructions: Spironolactone (By mouth), Bumetanide (By mouth), Acute Kidney Injury (DC), Hypotension (DC) Referrals: Marilyn Brown MD [Partnered Physician] - (You should establish care with a model home sales greeter. Please obtain referral new primary care physician. Make an appointment with nephrology within 4 weeks of discharge.) [facility] Provider[facility] - 10/12/17 1:15 pm (Please call your primary care physician for follow-up appointment within 1 week. Please discuss nephrology referral with your primary care doctor.) Prescriptions: Bumetanide [Bumex] 2 mg PO BID #60 tablet Spironolactone [Aldactone] 25 mg PO DAILY #30 tablet
--- NOTE | 2017-10-03 15:29 | Discharge Summary ---
- NOTES TO OUTPATIENT PROVIDER Notes to Outpatient Provider: Recommend follow-up with nephrology Date of Encounter: 10/03/17 Time of Encounter: 15:29 - Discharge Diagnosis (1) Hypotension Priority: Primary Status: Acute Assessment and Plan: with SBPs in 50s-60s on arrival. Possibly secondary to medication effect/ possible unintentional overdose. BP improving with IV fluids. Continue to hold BP medication and diuretics. Afebrile, no levator WBC, no tachycardia. Appears to have some cellulitis lower extremity but do not suspect infectious source is cause of hypotension. BP improved with holding BP medication and IV fluids. Normotensive at time of discharge. Qualifiers: Hypotension type: hypotension due to hypovolemia Qualified Code(s): I95.89 - Other hypotension; E86.1 - Hypovolemia (2) Acute kidney injury Priority: Primary Status: Acute Assessment and Plan: Cr 3.04 on arrival. Suspect he has some component of CTD creatinine range from 1.1-2.0 since 2014. Suspect prerenal with hypotension. Avoid nephrotoxic agents. Renal function improved with IV fluids and holding nephrotoxic agents. Evaluated by nephrology who recommended stopping ARB and Lasix. Home spironolactone dose also increased and patient was started on Bumex. Will need to follow-up with nephrology outpatient (3) Cellulitis Priority: Primary Status: Acute Assessment and Plan: to bilateral lower extremities; appears worse to the left leg. No recent ATB. Follows with [facility]ry [facility] the [facility]. doxycycline at discharge. Qualifiers: Site of cellulitis: extremity Laterality: left Qualified Code(s): L03.032 - Cellulitis of left toe (4) Diabetes mellitus Priority: Primary Status: Chronic Assessment and Plan: per hx. continue home oral hypoglycemics. Qualifiers: Diabetes mellitus type: type 1 Diabetes mellitus complication status: with circulatory complication Diabetes mellitus complication detail: with other circulatory complications Qualified Code(s): E10.59 - Type 1 diabetes mellitus with other circulatory complications (5) Chronic pain Priority: Secondary Status: Chronic Assessment and Plan: Chronic lower extremity pain. On Percocet, OxyContin and Lyrica at home. OAARS verified 10/02/17. Qualifiers: Chronic pain type: chronic pain syndrome Qualified Code(s): G89.4 - Chronic pain syndrome (6) Seizure Priority: Secondary Status: Chronic Assessment and Plan: per hx. continue home AEDs. Hospital course: Mr. Edmondson is a 62 year old male - Time Spent with Patient Total time spent providing and/or coordinating discharge services: - Discharge Medications Prescriptions: Bumetanide [Bumex] 2 mg PO BID #60 tablet Spironolactone [Aldactone] 25 mg PO DAILY #30 tablet Home Medications: Allopurinol [Zyloprim] 300 mg PO BID 10/02/17 [History] Amitriptyline [Elavil] 50 mg PO HS 10/02/17 [History] Aspirin [Lo-Dose Aspirin EC] 81 mg PO DAILY 10/02/17 [History] Cholecalciferol (D-3) [Vitamin D] 1,000 unit PO DAILY 10/02/17 [History] Divalproex (24 HR) [Depakote ER (24 HR)] 1,500 mg PO HS 10/02/17 [History] Magnesium Oxide [Magnesium] 400 mg PO DAILY 10/02/17 [History] Montelukast [Singulair] 10 mg PO DAILY 10/02/17 [History] OxyCODONE ER (12 HR) [OxyCONTIN] 40 mg PO Q12HR 10/02/17 [History] Oxycodone HCl/Acetaminophen [Percocet 5-325 mg Tablet] 1 tab PO QID PRN [History] Pregabalin [Lyrica] 150 mg PO BID 10/02/17 [History] Rosuvastatin Calcium [Crestor] 40 mg PO DAILY 10/02/17 [History] carBAMazepine [Tegretol] 300 mg PO BID 10/02/17 [History] Bumetanide [Bumex] 2 mg PO BID #60 tablet 10/03/17 [Rx] Spironolactone [Aldactone] 25 mg PO DAILY #30 tablet 10/03/17 [Rx] Allergies/Adverse Reactions: 3 Allergy/AdvReac Type Severity Reaction Status Date / Time No Known Allergies Allergy Verified 09/14/15 01:33 Date of admission: 10/01/17 23:17 [facility] care physician: [facility] Consults: 10/03/17 08:34 Consult to Wound Care [CONS] Routine Reason for Consult: chronic wound to right foot Time Notified: 08:35 Call Completed: Yes 10/03/17 10:19 Consult to Nephrology [CONS] Routine Consulting Provider: [facility]/FRANK/[facility]LL Reason for Consult: acute on chronic kidney disease Call Completed: Yes Discharging clinician: Raisa Willoughby Anticipated date of discharge: 10/03/17 - Constitutional Vitals: Temp Pulse Resp BP Pulse Ox 97.8 F 83 14 130/72 93 10/03/17 11:34 10/03/17 11:34 10/03/17 11:34 10/03/17 11:34 10/03/17 11:34 General appearance: Present: cooperative, A&O X 3, no acute distress, answers questions appropriately. Absent: pleasant - Head Head exam: Present: atraumatic, normocephalic - Eye Eye exam: Present: PERRL, conjuntiva pink, sclera anicteric Pupils: Present: PERRL - Neck Neck exam general surgery: Present: supple, trachea midline. Absent: lymphadenopathy - Respiratory Respiratory exam: Present: CTAB. Absent: accessory muscle use, rales, rhonchi, wheezes - Cardiovascular Cardiovascular exam: Present: RRR, +S1, +S2. Absent: diastolic murmur, gallop, rubs, systolic murmur - GI/Abdominal GI/Abdominal exam: Present: normal bowel sounds, soft, no peritoneal signs. Absent: distended, tenderness - Extremities Exam Extremities exam: Present: pedal edema (LLE with pedal edema and erythema ), warm, radial pulses palpable and symmetrical. Absent: calf tenderness, cyanotic - Neurological Exam Neurological exam: Present: CN II-XII intact, oriented X3, no focal deficits. Absent: pronater drift, facial droop, speech deficit - Skin Skin exam: Present: dry, intact - Patient Status Disposition: Home, Self-Care Condition: Good Functional capacity at discharge: uses cane/walker Overall status at discharge: patient is back to baseline - Discharge Instructions Instructions: Acute Kidney Injury (DC), Bumetanide (By mouth), Hypotension (DC) Follow [facility] With: [facility] Care Provider[facility] - (Please call your primary care physician for follow-up appointment within 1 week. Please discuss nephrology referral with your primary care doctor.) Marilyn Brown MD [Partnered Physician] - (You should establish care with a kardex clerk. Please obtain referral new primary care physician. Make an appointment with nephrology within 4 weeks of discharge.) - Diet and Activity Activity: increase activity as tolerated Diet: diabetic diet, low fat, low cholesterol, low salt diet
[2017-10-03 15:38] VITALS: BP 145/76
[2017-10-03] MEDS: cefTRIAXone 1,000 MG in Water for inj. (sterile) 20 ML 10 ML IVP SCH (16:18)
== END 2017-10-03 16:45 | disposition home or self-care (01) ==
LOC: EMEROO 20:18 → 3BNU 20:18
PROVIDERS: ADMIT Pediatrics; ATTEND Pediatrics

== ENCOUNTER 2018-09-11 05:43 | Inpatient (IN) ==
--- NOTE | 2018-09-11 06:03 | Emergency Department Note ---
Disposition Clinical Impression: LLQ abdominal pain, Colitis, Renal mass, Chest pain Disposition: Admitted As Inpatient Condition: Good Time of Disposition: 06:58 Abdominal Pain HPI - General Stated Complaint: abd pain Time Seen by Provider: 09/11/18 05:50 Nursing Notes Reviewed: Yes Vital Signs Reviewed: Yes - History of Present Illness HPI Narrative: 63-year-old male presents from home via EMS for evaluation of left lower quadrant abdominal pain. Onset approximately 2 and half days ago. Described as constant sharp stabbing and waxing and waning in intensity. More intense brock ght which made him concerned to come in. Patient notes his abdominal pain started after he received IV contrast for retinal imaging for evaluation of his glaucoma. PMH: Hypertension, hyperlipidemia, CHF, COPD, chronic pain History of chronic constipation secondary to his chronic opioid medication for chronic pain. Typically has a bowel movement every 3-4 days. Last bowel movement was yesterday. Abdominal surgical history: TENS unit placed in right abdominal wall secondary to bilateral peripheral neuropathy. ROS: Positive: Left lower quadrant pain Negative: Fever, chills, nausea, vomiting, chest pains, palpitations, unusual back pain, change in bowel habits - Related Data Home Medications Medication Instructions Recorded Confirmed Allopurinol [Zyloprim] 300 mg PO BID 10/02/17 09/11/18 Amitriptyline [Elavil] 50 mg PO HS 10/02/17 09/11/18 Aspirin [Lo-Dose Aspirin EC] 81 mg PO DAILY 10/02/17 09/11/18 Cholecalciferol (D-3) [Vitamin D] 1,000 unit PO DAILY 10/02/17 09/11/18 Divalproex (24 HR) [Depakote ER 1,500 mg PO HS 10/02/17 09/11/18 (24 HR)] Magnesium Oxide [Magnesium] 400 mg PO DAILY 10/02/17 09/11/18 Montelukast [Singulair] 10 mg PO DAILY 10/02/17 09/11/18 OxyCODONE ER (12 HR) [OxyCONTIN] 40 mg PO Q12HR 10/02/17 09/11/18 Oxycodone HCl/Acetaminophen 1 tab PO QID PRN 10/02/17 09/11/18 [Percocet 5-325 mg Tablet] Pregabalin [Lyrica] 150 mg PO BID 10/02/17 09/11/18 Rosuvastatin Calcium [Crestor] 40 mg PO DAILY 10/02/17 09/11/18 carBAMazepine [Tegretol] 300 mg PO BID 10/02/17 09/11/18 Previous Rx's Medication Instructions Recorded Bumetanide [Bumex] 2 mg PO BID #60 tablet 10/03/17 Spironolactone [Aldactone] 25 mg PO DAILY #30 tablet 10/03/17 Allergies Allergy/AdvReac Type Severity Reaction Status Date / Time No Known Allergies Allergy Verified 09/11/18 06:12 All systems ED: reviewed and negative except as stated. Review of Systems: As Per HPI Abdominal Pain PMH - Past Medical History Medical history: Reports: arthritis, CHF, COPD, diabetes, hyperlipidemia, hypertension Male Surgical History: Reports: angioplasty/stent Psychiatric history: Reports: bipolar - Social History Smoking status: Former smoker Alcohol use: Reports: none Drug use: Reports: none Physical Exam Vital Signs Reviewed General: Patient is alert, oriented, and in mild distress holding his left lower quadrant abdominal pannus. Head: atraumatic, normocephalic Eye: normal appearance, PERRL, EOMI, no scleral icterus, no conjunctival injection ENT: mucous membranes moist, normal external ear exam Neck: normal inspection, trachea midline, full ROM Chest: normal inspection, symmetric chest rise Respiratory: Good respiratory effort. Bilateral breath sounds are clear without wheezing, crackles, or rhonchi. Cardiovascular: Regular rate and rhythm. No clicks, rubs, gallops, or murmors. Normal heart sounds. Abdomen: Bowel sounds present normoactive. Abdomen is soft, nondistended. Mild tenderness in the left lower quadrant. No guarding or rebound. No organomegaly noted. Musculoskeletal: Spontaneously moving all extremities. Skin: warm, dry, intact. Neuro: GCS 15. No focal neurologic deficits observed. Psych: Patient's affect is appropriate for situation. Course Course Narrative: Nubain for pain. Lab work. CT abdomen pelvis without contrast. Serum hematology is unremarkable. Serum chemistry shows hyperglycemia to the 180s. Lactic acid normal. Normal renal function. Patient has been signed out to the day team, Dr. Chen. CT abdomen pelvis is pending. Disposition pending CT abdomen pelvis. Vital Signs Temperature 98.8 F 09/11/18 06:17 Pulse Rate 96 09/11/18 06:17 Respiratory Rate 20 09/11/18 06:17 Blood Pressure 164/123 09/11/18 06:17 O2 Sat by Pulse Oximetry 96 09/11/18 06:17 Temperature 98.8 F 09/11/18 06:18 Pulse Rate 96 09/11/18 06:18 Respiratory Rate 20 09/11/18 06:18 Blood Pressure 164/123 09/11/18 06:18 O2 Sat by Pulse Oximetry 97 09/11/18 06:18 Oxygen Delivery Oxygen Delivery Room Air Abdominal Pain - Lab Data Result diagrams: 09/11/18 06:10 09/11/18 06:10 Lab Results 09/11/18 09/11/18 09/11/18 Range/Units 06:10 06:10 06:10 WBC 9.6 (4.3-11.1) K/mcL RBC 5.46 (4.19-5.50) M/mcL Hgb 16.7 (12.9-16.9) g/dL Hct 48.5 (37.5-50.1) % MCV 88.8 (83.0-100.0) fL MCH 30.6 (28.0-33.3) pg MCHC 34.4 (31.6-35.5) g/dL RDW 13.0 (11.5-14.5) % Plt Count 175 (140-400) K/mcL MPV 10.3 (9.4-12.4) fL Immature Gran % 0.5 (0-4) % Seg Neutrophils % 74.0 % Lymphocytes % 13.2 % Monocytes % 10.5 % Eosinophils % 1.4 % Basophils % 0.4 % Neutrophils # 7.1 (1.6-8.9) K/mcL Lymphocytes # 1.3 (0.6-4.6) K/mcL Monocytes # 1.0 (0.0-1.3) K/mcL Eosinophils # 0.1 (0.0-0.6) K/mcL Basophils # 0.0 (0.0-0.2) K/mcL Sodium 135 L (136-145) mEq/L Potassium 4.3 (3.5-5.1) mEq/L Chloride 96 L (98-107) mEq/L Carbon Dioxide 30 H (23-29) mEq/L BUN 19 (8-23) mg/dL Creatinine 0.99 (0.70-1.30) mg/dL Est GFR ( Amer) > 60 (> 60) Est GFR (Non-Af Amer) > 60 (> 60) BUN/Creatinine Ratio 19 (6-26) Glucose 189 H (70-105) mg/dL Calculated Osmolality 287 (280-300) Lactic Acid 1.1 (0.5-2.2) mmol/L Calcium 9.7 (8.6-10.3) mg/dL Attestation Statement - Attestation Attestation: Dr. Capps note:/ Attestation: Patient seen in conjunction with emergency medicine resident Dr. Ron. Please see his charting for complete documentation. Spent [id number] time with the patient and I agree with the patient's treatment and disposition. Progressive left lower quadrant pain for 2 days. Denies history of same. Due to age presentation examination she will require urinalysis, blood work and CT scan. Patient was evaluated just prior to then of our shift [facility] Junior Briecño at 7 AM.
[2018-09-11 06:21] LABS: Basophils % 0.4 %; Eosinophils # 0.1 K/mcL (0.0-0.6); Eosinophils % 1.4 %; Hematocrit 48.5 % (37.5-50.1); Hemoglobin 16.7 g/dL (12.9-16.9); Immature Granulocytes % 0.5 % (0-4); Lymphocytes # 1.3 K/mcL (0.6-4.6); Lymphocytes % 13.2 %; Mean Corpuscular HGB Conc 34.4 g/dL (31.6-35.5); Mean Corpuscular Hemoglobin 30.6 pg (28.0-33.3); Mean Corpuscular Volume 88.8 fL (83.0-100.0); Mean Platelet Volume 10.3 fL (9.4-12.4); Monocytes % 10.5 %; Neutrophils # 7.1 K/mcL (1.6-8.9); Platelet Count 175 K/mcL (140-400); Red Blood Count 5.46 M/mcL (4.19-5.50)
[2018-09-11 06:40] LABS: BUN/Creatinine Ratio 19 (6-26); Blood Urea Nitrogen 19 mg/dL (8-23); Calcium 9.7 mg/dL (8.6-10.3); Carbon Dioxide 30 mEq/L (23-29); Chloride 96 mEq/L (98-107); Glucose 189 mg/dL (70-105); Osmolality,Calculated 287 (280-300); Potassium 4.3 mEq/L (3.5-5.1); Sodium 135 mEq/L (136-145); eGFR For Non-African Americans > 60 (> 60)
[2018-09-11] MEDS ORDERED: *HR* Nalbuphine 10 MG/ML AMPUL IV STA (06:55)
--- NOTE | 2018-09-11 07:39 | Emergency Department Note ---
Disposition Clinical Impression: LLQ abdominal pain, Colitis, Renal mass Chest pain Qualifiers: Chest pain type: unspecified Qualified Code(s): R07.9 - Chest pain, unspecified Disposition: Admitted As Inpatient Condition: Good Time of Disposition: 08:04 General Adult HPI - General Chief complaint: ED Abdominal Pain Stated complaint: abd pain Time Seen by Provider: 09/11/18 05:50 Source: patient, family, EMS Limitations: no limitations - History of Present Illness HPI Narrative: Patient's case was signed out by the prior provider. Please see their documentation for complete history and physical. Pain Scale: 9 - Related Data Home Medications Medication Instructions Recorded Confirmed Allopurinol [Zyloprim] 300 mg PO BID 10/02/17 09/11/18 Amitriptyline [Elavil] 50 mg PO HS 10/02/17 09/11/18 Aspirin [Lo-Dose Aspirin EC] 81 mg PO DAILY 10/02/17 09/11/18 Cholecalciferol (D-3) [Vitamin D] 1,000 unit PO DAILY 10/02/17 09/11/18 Divalproex (24 HR) [Depakote ER 1,500 mg PO HS 10/02/17 09/11/18 (24 HR)] Magnesium Oxide [Magnesium] 400 mg PO DAILY 10/02/17 09/11/18 Montelukast [Singulair] 10 mg PO DAILY 10/02/17 09/11/18 OxyCODONE ER (12 HR) [OxyCONTIN] 40 mg PO Q12HR 10/02/17 09/11/18 Oxycodone HCl/Acetaminophen 1 tab PO QID PRN 10/02/17 09/11/18 [Percocet 5-325 mg Tablet] Pregabalin [Lyrica] 150 mg PO BID 10/02/17 09/11/18 Rosuvastatin Calcium [Crestor] 40 mg PO DAILY 10/02/17 09/11/18 carBAMazepine [Tegretol] 300 mg PO BID 10/02/17 09/11/18 Previous Rx's Medication Instructions Recorded Bumetanide [Bumex] 2 mg PO BID #60 tablet 10/03/17 Spironolactone [Aldactone] 25 mg PO DAILY #30 tablet 10/03/17 Allergies Allergy/AdvReac Type Severity Reaction Status Date / Time No Known Allergies Allergy Verified 09/11/18 06:12 Past Medical History - Past Medical History Medical history: Reports: arthritis, CHF, COPD, diabetes, hyperlipidemia, hypertension, other Psychiatric history: Reports: bipolar - Social History Smoking Status: Former smoker Smokeless Tobacco Status: No Alcohol use: Reports: none Drug use: Reports: none Physical Exam - General Limitations: no limitations General appearance: alert Course Course Narrative: Patient seen and examined. Patient was signed out by the prior provider. Please see their dictation for complete history and physical. - Reevaluation(s) Reevaluation #1: Patient seen and examined. Patient states he became very sweaty with some chest tightness following the administration of the Nubain. Patient's EKG does not show anything acute. Will obtain troponin. Patient does confirm the history that he has had a couple days of left lower sided abdominal pain. Patient states he typically has bouts of constipation with bowel movements every 3 days but did have a normal bowel movement last night. On rectal exam, there is no notable rectal impaction. Patient declined a enema. Patient states that he has a known mass on his right kidney that is been followed at the cancer center but is not a malignancy per historian. Time: 07:57 Reevaluation #2: I did speak with the hospitalist who recommended that I consult surgery regardi ng CT findings. Time: 08:42 - Consultations Consultation #1: Did with surgery regarding the patient's CT scan. They will consult. Time: 08:47 Vital Signs Temperature 98.8 F 09/11/18 06:17 Pulse Rate 96 09/11/18 06:17 Respiratory Rate 20 09/11/18 06:17 Blood Pressure 164/123 09/11/18 06:17 O2 Sat by Pulse Oximetry 96 09/11/18 06:17 Temperature 98.8 F 09/11/18 06:18 Pulse Rate 94 09/11/18 07:19 Respiratory Rate 20 09/11/18 07:19 Blood Pressure 169/86 09/11/18 07:19 O2 Sat by Pulse Oximetry 96 09/11/18 07:19 Oxygen Delivery Oxygen Delivery Room Air Medical Decision Making - Lab Data Lab results reviewed: Yes I reviewed the patient's lab results. Result diagrams: 09/11/18 06:10 09/11/18 06:10 Lab Results 09/11/18 09/11/18 09/11/18 Range/Units 06:10 06:10 06:10 WBC 9.6 (4.3-11.1) K/mcL RBC 5.46 (4.19-5.50) M/mcL Hgb 16.7 (12.9-16.9) g/dL Hct 48.5 (37.5-50.1) % MCV 88.8 (83.0-100.0) fL MCH 30.6 (28.0-33.3) pg MCHC 34.4 (31.6-35.5) g/dL RDW 13.0 (11.5-14.5) % Plt Count 175 (140-400) K/mcL MPV 10.3 (9.4-12.4) fL Immature Gran % 0.5 (0-4) % Seg Neutrophils % 74.0 % Lymphocytes % 13.2 % Monocytes % 10.5 % Eosinophils % 1.4 % Basophils % 0.4 % Neutrophils # 7.1 (1.6-8.9) K/mcL Lymphocytes # 1.3 (0.6-4.6) K/mcL Monocytes # 1.0 (0.0-1.3) K/mcL Eosinophils # 0.1 (0.0-0.6) K/mcL Basophils # 0.0 (0.0-0.2) K/mcL Sodium 135 L (136-145) mEq/L Potassium 4.3 (3.5-5.1) mEq/L Chloride 96 L (98-107) mEq/L Carbon Dioxide 30 H (23-29) mEq/L BUN 19 (8-23) mg/dL Creatinine 0.99 (0.70-1.30) mg/dL Est GFR ( Amer) > 60 (> 60) Est GFR (Non-Af Amer) > 60 (> 60) BUN/Creatinine Ratio 19 (6-26) Glucose 189 H (70-105) mg/dL Calculated Osmolality 287 (280-300) Lactic Acid 1.1 (0.5-2.2) mmol/L Calcium 9.7 (8.6-10.3) mg/dL Troponin I < 0.03 (< 0.04) ng/mL Urine Color (Yellow) Urine Clarity (Clear) Urine pH (5.0-8.0) pH Units Ur Specific [place] (1.010-1.025) Urine Protein (Neg-Trace) mg/dL Urine Glucose (UA) (Normal) mg/dL Urine Ketones (Negative) mg/dL Urine Blood (Negative) Urine Nitrite (Negative) Urine Bilirubin (Negative) Urine Urobilinogen (Normal) mg/dL Ur Leukocyte Esterase (Negative) Ur Culture Indicated? (NO) 09/11/18 Range/Units 07:58 WBC (4.3-11.1) K/mcL RBC (4.19-5.50) M/mcL Hgb (12.9-16.9) g/dL Hct (37.5-50.1) % MCV (83.0-100.0) fL MCH (28.0-33.3) pg MCHC (31.6-35.5) g/dL RDW (11.5-14.5) % Plt Count (140-400) K/mcL MPV (9.4-12.4) fL Immature Gran % (0-4) % Seg Neutrophils % % Lymphocytes % % Monocytes % % Eosinophils % % Basophils % % Neutrophils # (1.6-8.9) K/mcL Lymphocytes # (0.6-4.6) K/mcL Monocytes # (0.0-1.3) K/mcL Eosinophils # (0.0-0.6) K/mcL Basophils # (0.0-0.2) K/mcL Sodium (136-145) mEq/L Potassium (3.5-5.1) mEq/L Chloride (98-107) mEq/L Carbon Dioxide (23-29) mEq/L BUN (8-23) mg/dL Creatinine (0.70-1.30) mg/dL Est GFR ( Amer) (> 60) Est GFR (Non-Af Amer) (> 60) BUN/Creatinine Ratio (6-26) Glucose (70-105) mg/dL Calculated Osmolality (280-300) Lactic Acid (0.5-2.2) mmol/L Calcium (8.6-10.3) mg/dL Troponin I (< 0.04) ng/mL Urine Color Yellow (Yellow) Urine Clarity Clear (Clear) Urine pH 7.0 (5.0-8.0) pH Units Ur Specific [place] < 1.005 L (1.010-1.025) Urine Protein Trace (Neg-Trace) mg/dL Urine Glucose (UA) Normal (Normal) mg/dL Urine Ketones Negative (Negative) mg/dL Urine Blood Negative (Negative) Urine Nitrite Negative (Negative) Urine Bilirubin Negative (Negative) Urine Urobilinogen Normal (Normal) mg/dL Ur Leukocyte Esterase Negative (Negative) Ur Culture Indicated? NO (NO) - Radiology Data Radiology results reviewed: Yes I reviewed the patient's radiology results. Abdomen/Pelvis CT 09/11/18 06:00 IMPRESSION: 1. Findings consistent with colitis, most likely stercoral colitis, involving about 10 cm segment of proximal sigmoid colon. There is relative fecal distention and possibly some degree of impaction compared to the rest of the descending colon which is relatively collapsed, in addition to wall thickening and pericolonic inflammatory stranding in the involved segment. 2. Redemonstration of 6.8 cm right renal mass in the inferior pole consistent with known history of renal cell cancer. 3. Interval placement of intraspinal nerve stimulator entering the spinal canal at T11 level and extending inferiorly where it is coiled in the epidural region at T12. D/ / Hector Villalpando MD / Hector Villalpando MD Interpreting Provider: Hector Villalpando MD - EKG Data EKG #1 EKG attestation: Yes I reviewed and interpreted this EKG. EKG shows normal: sinus rhythm Rate: normal Rhythm: NSR [place]/QRS: normal Interpretation: no acute changes, nonspecific ST-T wave changes S.B.Juanita - Milana Situation: Demographics Background: Presenting Complaint Assessment: Vital Signs, Course and respsone to treatment, Patient/Family Expectation Recommendation: Barrier(s) to disposition, Recommendation based on pending studies, treatments, or consults S.BFlori Report Given to: Hospitalist Milana Rebollar Time: 08:43 Attestation Statement - Attestation Attestation: Patient was seen with resident physician. I reviewed the history, physical, assessment and plan, and agree with the findings. I also personally evaluated this patient and had [id number] time with this patient.. 63-year-old male signed out by the casino shift manager team at the time CT scan was pending. Patient was also given Nubain at the end of the casino shift manager prior to us assuming care. Patient essentially said left-sided abdominal pain for last couple days with increased distention and swelling. Patient also after getting Nubain got dizzy and diaphoretic and had some mild chest pain. He does have a history of stents most recently 9 years ago. Pain had resolved after just a few minutes as did the anxiety. Review of systems as above remainder negative for complete history and physical please see prior physician's note. Physical exam vital signs are stable. ENT is unremarkable. Heart regular rate. Lungs clear. Abdomen obese mildly tender somewhat diffusely in the left side. No guarding rigidity. Extremities unremarkable. Neurologically intact. Skin no rashes. Psych normal. ED course. CT scan revealed colitis. EKG was done after the patient developed chest pain revealed no acute ischemic changes. Troponin was ordered. Other lab tests were followed up on. Because of the patient's continuation of pain and also with this chest pain now were given admit him for diagnosis of acute abdominal pain with colitis and chest pain. Hemodynamically he was stable throughout my time with him in the emergency department. We spoke the hospitalist service agreed to accept patient for admission. I agree with resident physician assessment and plan.
[2018-09-11] MEDS ORDERED: *HR* FentaNYL (PF) 100 MCG/2 ML VIAL IVP ONE (07:56)
[2018-09-11] MEDS ORDERED: MetroNIDAZOLE 500 MG/100 ML 500 MG/100 ML BAG IVPB ONE (07:56)
[2018-09-11 08:10] LABS: Troponin I < 0.03 ng/mL (< 0.04)
[2018-09-11 08:17] LABS: Bilirubin,Urine Negative (Negative); Blood,Urine Negative (Negative); Clarity,Urine Clear (Clear); Color,Urine Yellow (Yellow); Glucose,Urine (UA) Normal (Normal); Ketones,Urine Negative (Negative); Leukocyte Esterase,Urine Negative (Negative); Nitrite,Urine Negative (Negative); Protein,Urine Trace mg/dL (Neg-Trace); Specific Gravity,Urine < 1.005 (1.010-1.025); Urobilinogen,Urine Normal (Normal)
[2018-09-11] MEDS ORDERED: Milk and Molasses Enema 200 ML RC ONE (10:43)
--- NOTE | 2018-09-11 10:46 | AcuteCare Surgery Consult Note ---
Date of Encounter: 09/11/18 Time of Encounter: 09:45 Assessment and Plan (1) Fecal impaction of colon Current Visit: Yes Status: Acute ABD/Pelvis CT suggests stercoral colitis. Recommend milk and molasses enema to reverse fecal impaction. No sign of obstruction. No leukocytosis. No fever. (2) Colitis Current Visit: Yes Status: Acute Agree with IV abx. Recommend clear liquid diet. (3) Hypertension Current Visit: Yes Status: Acute Pt is actually hypotensive after Nubain on admission. Hold home meds. Qualifiers: Hypertension type: essential hypertension Qualified Code(s): I10 - Essential (primary) hypertension (4) COPD (chronic obstructive pulmonary disease) Current Visit: Yes Status: Acute stable Qualifiers: Emphysema type: unspecified Qualified Code(s): J43.9 - Emphysema, unspecified (5) Diabetes mellitus Current Visit: No Status: Chronic By history Qualifiers: Diabetes mellitus type: other specified (including ALISHA) Qualified Code(s): E13.00 - Other specified diabetes mellitus with hyperosmolarity without nonketotic hyperglycemic-hyperosmolar coma (NKH[facility]) History of Present Illness Requesting physician: Tommy Pabon History of present illness: This 63 y/o male pt presents to [facility] ED c/o severe abdominal pain. Pt reports pain is predominantly in LLQ. Pain radiates to left flank. However, denies dysuria. Pt reports pain has been present for several days. He states that the pain worsened to the point of intolerence today. Now, pain is severe and constant. Pt denies nausea and vomiting. Denies CP or SOB. Denies changes in BM. +flatus. Denies fever. He denies anorexia and states that he is hungry. Past Med Surg Social Fam HX - Past Medical History Medical history: arthritis, CHF, COPD, diabetes, hyperlipidemia, hypertension, other Additional medical history: PERIPHERAL VASCULAR DISEASE, NEUROPOTHY, benign right kidney growth Psychiatric history: bipolar - Past Surgical History Additional surgical history: cardiac stent x1 - Social History Smoking Status: Former smoker Smokeless Tobacco Status: No Alcohol use: none Drug use: none - Family History Father Adopted: No Family Member Ethnicity: Non- Living Status: Hx Family Cardiac Disorders: Yes (Heart murmur) Medications and Allergies Allopurinol [Zyloprim] 300 mg PO BID 10/02/17 [History] Amitriptyline [Elavil] 50 mg PO HS 10/02/17 [History] Aspirin [Lo-Dose Aspirin EC] 81 mg PO DAILY 10/02/17 [History] Cholecalciferol (D-3) [Vitamin D] 1,000 unit PO DAILY 10/02/17 [History] Divalproex (24 HR) [Depakote ER (24 HR)] 1,500 mg PO HS 10/02/17 [History] Magnesium Oxide [Magnesium] 400 mg PO DAILY 10/02/17 [History] Montelukast [Singulair] 10 mg PO DAILY 10/02/17 [History] OxyCODONE ER (12 HR) [OxyCONTIN] 40 mg PO Q12HR 10/02/17 [History] Oxycodone HCl/Acetaminophen [Percocet 5-325 mg Tablet] 1 tab PO QID PRN 10/02/17 [History] Pregabalin [Lyrica] 150 mg PO BID 10/02/17 [History] Rosuvastatin Calcium [Crestor] 40 mg PO DAILY 10/02/17 [History] carBAMazepine [Tegretol] 300 mg PO BID 10/02/17 [History] Bumetanide [Bumex] 2 mg PO BID #60 tablet 10/03/17 [Rx] Spironolactone [Aldactone] 25 mg PO DAILY #30 tablet 10/03/17 [Rx] Allergy/AdvReac Type Severity Reaction Status Date / Time No Known Allergies Allergy Verified 09/11/18 06:12 Review of Systems All systems PM: The remainder of the systems were reviewed and are negative - Constitutional no anorexia, no chills, no fever(s), no night sweats, no weakness - EENT Nose, mouth and throat: no dizziness, no dry mouth, no nasal congestion, no nasal discharge, no sinus pain, no sinus pressure, no sore throat - Cardiovascular no chest pain, no diaphoresis, no dyspnea, no edema - Respiratory no cough, no dyspnea, no wheezing - Gastrointestinal abdominal pain, bloating, no constipation, no diarrhea, no nausea, no vomiting - Genitourinary flank pain, no dysuria, no urinary frequency - Musculoskeletal back pain, no joint swelling, no limited range of motion, no neck pain - Integumentary no dry skin, no pruritus, no rash, no wounds, no jaundice - Neurological no confusion, no dizziness, no focal weakness, no weakness - Psychiatric no anxiety, no depression - Hematologic/Lymphatic no easy bleeding, no easy bruising General Surgery Exam Initial Vital Signs Temp Pulse Resp BP Pulse Ox 98.8 F 96 20 164/123 96 09/11/18 06:17 09/11/18 06:17 09/11/18 06:17 09/11/18 06:17 09/11/18 06:17 - General physical appearance well developed, well nourished, no distress - Eyes PERRL, normal ocular movement. negative: icteric - ENT normal mucosa, no congestion. negative: nasal discharge - Neck no masses, no lymphadectomy, no venous distension - Respiratory normal respiratory effort, clear to auscultation - Cardiovascular Cardiovascular exam: Present: RRR. Absent: murmurs - Abdomen Abdomen general surgery: Present: bowel sounds present, soft, tender. Absent: distended Abdominal Tenderness: Present: LLQ - Genitourinary Present: normal penis with no external lesions - Integumentary Integumentary general surgery: Present: warm and dry - Neurologic Present: CN 2-12 grossly intact, normal coordination - Musculoskeletal Present: normal gait, normal posture - Psychiatric Psychiatric general surgery: Present: A&Ox3, appropriate Exam Initial Vital Signs Temp Pulse Resp BP Pulse Ox 98.8 F 96 20 164/123 96 09/11/18 06:17 09/11/18 06:17 09/11/18 06:17 09/11/18 06:17 09/11/18 06:17 Results - Labs 09/11/18 06:10 09/11/18 06:10 Abnormal lab results Sodium 135 mEq/L (136-145) L 09/11/18 06:10 Chloride 96 mEq/L (98-107) L 09/11/18 06:10 Carbon Dioxide 30 mEq/L (23-29) H 09/11/18 06:10 Glucose 189 mg/dL (70-105) H 09/11/18 06:10 Ur Specific [place] < 1.005 (1.010-1.025) L 09/11/18 07:58 Diabetes panel 09/11/18 Range/Units 06:10 Sodium 135 L (136-145) mEq/L Potassium 4.3 (3.5-5.1) mEq/L Chloride 96 L (98-107) mEq/L Carbon Dioxide 30 H (23-29) mEq/L BUN 19 (8-23) mg/dL Creatinine 0.99 (0.70-1.30) mg/dL Glucose 189 H (70-105) mg/dL Calcium 9.7 (8.6-10.3) mg/dL Calcium panel 09/11/18 Range/Units 06:10 Calcium 9.7 (8.6-10.3) mg/dL Pituitary panel 09/11/18 Range/Units 06:10 Sodium 135 L (136-145) mEq/L Potassium 4.3 (3.5-5.1) mEq/L Chloride 96 L (98-107) mEq/L Carbon Dioxide 30 H (23-29) mEq/L BUN 19 (8-23) mg/dL Creatinine 0.99 (0.70-1.30) mg/dL Glucose 189 H (70-105) mg/dL Calcium 9.7 (8.6-10.3) mg/dL Adrenal panel 09/11/18 Range/Units 06:10 Sodium 135 L (136-145) mEq/L Potassium 4.3 (3.5-5.1) mEq/L Chloride 96 L (98-107) mEq/L Carbon Dioxide 30 H (23-29) mEq/L BUN 19 (8-23) mg/dL Creatinine 0.99 (0.70-1.30) mg/dL Glucose 189 H (70-105) mg/dL Calcium 9.7 (8.6-10.3) mg/dL All other labs normal. - Imaging CT scan - abdomen: image reviewed (+sterocoral colitis of sigmoid) CT scan - pelvis: image reviewed Consult Discharge Plan - Plan [facility]Primary Care Provider[facility] -
[2018-09-11] MEDS: *HR* OxyCODONE/APAP 5/325 TABLET PO PRN ×2 (11:37→20:56)
[2018-09-11] MEDS ORDERED: *HR* Dextrose 50 % in Water (Syg) 50 ML SYRINGE IVP PRN ×2 (12:35→15:50)
[2018-09-11] MEDS ORDERED: D5% in Water 1,000 ML IVC PRN ×2 (12:35→15:50)
[2018-09-11] MEDS ORDERED: Dextrose Gel 15 GM/37.5 ML TUBE PO PRN ×4 (12:35→15:50)
[2018-09-11 14:16] LABS: Estimated Average Glucose 163 mg/dl; Hemoglobin A1C 7.3 %
--- NOTE | 2018-09-11 16:01 | Acute Care Surgery Event Note ---
Date of Encounter: 09/11/18 Time of Encounter: 16:00 Pt reports LLQ pain resolved with Milk and molasses enema which produced a good result with a large BM. No surgical intervention recommended at this time. Pt is up to date on colonoscopy so, no outpatient surgical follow up recommended. Surgery signing off. Thank you for allowing me to participate in this patients care.
--- NOTE | 2018-09-11 16:34 | Internal Med History&Physical ---
Date of Encounter: 09/11/18 Time of Encounter: 06:00 Internal Medicine - H&P: HPI History of present illness: Mr. Edmondson is a 63-year-old male with a past medical history of Hypertension, hyperlipidemia, CHF, COPD, chronic pain who presents from home via EMS for evaluation of left lower quadrant sharp stabbing abdominal pain. the patient has history chronic constipation secondary to his chronic opioid medication for chronic pain. Typically has a bowel movement every 3-4 days. Last bowel movement was yesterday. CT scan of the abdomen was obtained and revealed colitis, most likely stercoral colitis, involving about 10 cm segment of proximal sigmoid colon. There is relative fecal distention and possibly some degree of impaction compared to the rest of the descending colon which is relatively collapsed, in addition to wall thickening and pericolonic inflammatory stranding in the involved segment. surgery was consulted for further evaluation and management and patient was admitted to the hospital Past Med Surg Social Fam HX - Past Medical History Medical history: arthritis, CHF, COPD, diabetes, hyperlipidemia, hypertension, other Additional medical history: PERIPHERAL VASCULAR DISEASE, NEUROPOTHY, benign right kidney growth Psychiatric history: bipolar - Past Surgical History Additional surgical history: cardiac stent x1 - Social History Smoking Status: Former smoker Smokeless Tobacco Status: No Alcohol use: none Drug use: none - Family History Father Adopted: No Family Member Ethnicity: Non- Living Status: Hx Family Cardiac Disorders: Yes (Heart murmur) Internal Medicine - H&P: Meds Allopurinol [Zyloprim] 300 mg PO BID 10/02/17 [History] Amitriptyline [Elavil] 50 mg PO HS 10/02/17 [History] Aspirin [Lo-Dose Aspirin EC] 81 mg PO DAILY 10/02/17 [History] Cholecalciferol (D-3) [Vitamin D] 1,000 unit PO DAILY 10/02/17 [History] Divalproex (24 HR) [Depakote ER (24 HR)] 1,500 mg PO HS 10/02/17 [History] Magnesium Oxide [Magnesium] 400 mg PO DAILY 10/02/17 [History] Montelukast [Singulair] 10 mg PO DAILY 10/02/17 [History] OxyCODONE ER (12 HR) [OxyCONTIN] 40 mg PO Q12HR 10/02/17 [History] Oxycodone HCl/Acetaminophen [Percocet 5-325 mg Tablet] 1 tab PO QID PRN 10/02/17 [History] Pregabalin [Lyrica] 150 mg PO BID 10/02/17 [History] Rosuvastatin Calcium [Crestor] 40 mg PO DAILY 10/02/17 [History] carBAMazepine [Tegretol] 300 mg PO BID 10/02/17 [History] Bumetanide [Bumex] 2 mg PO BID #60 tablet 10/03/17 [Rx] Spironolactone [Aldactone] 25 mg PO DAILY #30 tablet 10/03/17 [Rx] Ciprofloxacin HCl [Cipro] 500 mg PO BID #14 tablet 09/12/18 [Rx] Sennosides/Docusate Sodium [Senna Plus] 1 each PO BID #60 tablet 09/12/18 [Rx] metroNIDAZOLE [Flagyl] 500 mg PO TID #21 tablet 09/12/18 [Rx] Allergy/AdvReac Type Severity Reaction Status Date / Time No Known Allergies Allergy Verified 09/11/18 06:12 All Systems PM: A 10-system review of systems was performed and is negative for pertinent findings except as documented above in the HPI. - Constitutional Constitutional: no chills, no fever(s), no night sweats - EENT Eyes: no change in vision, no discharge, no pain, no photophobia Ears: no ear discharge, no ear pain, no tinnitus Nose, mouth and throat: no dysphagia, no nasal discharge, no neck pain, no sore throat - Cardiovascular Cardiovascular ROS IM: no chest pain, no diaphoresis, no dyspnea, no lightheadedness, no palpitations, no syncope - Respiratory Respiratory: no cough, no dyspnea, no wheezing, no excessive phlegm production - Gastrointestinal Gastrointestinal: abdominal pain, change in bowel habits, cramping, no diarrhea, no hematemesis, no hematochezia, no melena, no nausea, no vomiting - Musculoskeletal Musculoskeletal ROS IM: no numbness, no tingling - Integumentary Integumentary IM: no rash, no unusual bruising - Neurological Neurological ROS: no confusion, no convulsions, no focal weakness, no numbness, no tingling, no tremor(s) - Hematologic/Lymphatic Hematologic/Lymphatic: no easy bruising - Constitutional Vitals: Temp Pulse Resp BP Pulse Ox 98.0 F 88 18 193/110 97 09/11/18 16:12 09/11/18 16:12 09/11/18 16:12 09/11/18 16:12 09/11/18 16:12 Exam: As below - Head Head exam: Present: atraumatic, normocephalic - Eye Eye exam: Present: PERRL, conjuntiva pink, sclera anicteric Pupils: Present: PERRL - Neck Neck exam general surgery: Present: supple, trachea midline. Absent: lymphadenopathy - Respiratory Respiratory exam: Present: CTAB. Absent: accessory muscle use, rales, rhonchi, wheezes - Cardiovascular Cardiovascular exam: Present: RRR, +S1, +S2. Absent: diastolic murmur, gallop, rubs, systolic murmur - GI/Abdominal GI/Abdominal exam: Present: distended, normal bowel sounds, soft, tenderness, no peritoneal signs - Extremities Exam Extremities exam: Present: warm, radial pulses palpable and symmetrical. Absent: calf tenderness, cyanotic, pedal edema - Neurological Exam Neurological exam: Present: CN II-XII intact, oriented X3, no focal deficits. Absent: pronater drift, facial droop, speech deficit - Skin Skin exam: Present: dry, intact Internal Med - H&P Results - Labs CBC & Chem 7: 09/11/18 06:10 09/11/18 06:10 Labs: Short CBC 09/11/18 Range/Units 06:10 WBC 9.6 (4.3-11.1) K/mcL Hgb 16.7 (12.9-16.9) g/dL Hct 48.5 (37.5-50.1) % Plt Count 175 (140-400) K/mcL Neutrophils # 7.1 (1.6-8.9) K/mcL BMP 09/11/18 06:10 Sodium 135 L Potassium 4.3 Chloride 96 L Carbon Dioxide 30 H BUN 19 Creatinine 0.99 Glucose 189 H Calcium 9.7 Cardiac Enzymes 09/11/18 Range/Units 06:10 Troponin I < 0.03 (< 0.04) ng/mL Urine 09/11/18 Range/Units 07:58 Urine Color Yellow (Yellow) Urine Clarity Clear (Clear) Urine pH 7.0 (5.0-8.0) pH Units Ur Specific Casey < 1.005 L (1.010-1.025) Urine Protein Trace (Neg-Trace) mg/dL Urine Glucose (UA) Normal (Normal) mg/dL - Impressions ITS Impressions Abdomen/Pelvis CT 09/11/18 06:00 IMPRESSION: 1. Findings consistent with colitis, most likely stercoral colitis, involving about 10 cm segment of proximal sigmoid colon. There is relative fecal distention and possibly some degree of impaction compared to the rest of the descending colon which is relatively collapsed, in addition to wall thickening and pericolonic inflammatory stranding in the involved segment. 2. Redemonstration of 6.8 cm right renal mass in the inferior pole consistent with known history of renal cell cancer. 3. Interval placement of intraspinal nerve stimulator entering the spinal canal at T11 level and extending inferiorly where it is coiled in the epidural region at T12. D/ / Hector Villalpando MD / Hector Villalpando MD Interpreting Provider: Hector Villalpando MD - Assessment and Plan (1) Fecal impaction of colon Status: Acute Assessment and plan: Surgery was consulted for further evaluation and management (2) Colitis Status: Acute Assessment and plan: The patient was started an antibiotic combination with ciprofloxacin and metronidazole (3) Hypertension Status: Acute Assessment and plan: We will continue home medication and monitor blood pressure while inpatient Qualifiers: Hypertension type: essential hypertension Qualified Code(s): I10 - Essential (primary) hypertension (4) Kidney malignancy Status: Acute Assessment and plan: The patient is following up with cancer Center as an outpatient Qualifiers: Laterality: unspecified laterality Qualified Code(s): C64.9 - Malignant neoplasm of unspecified kidney, except renal pelvis (5) Diabetes mellitus Status: Chronic Assessment and plan: We will start the patient on insulin sliding scale with moderate coverage Qualifiers: Diabetes mellitus type: other specified (including ALISHA) Qualified Code(s): E13.00 - Other specified diabetes mellitus with hyperosmolarity without nonketotic hyperglycemic-hyperosmolar coma ([facility]) (6) Seizure Status: Chronic Assessment and plan: We will continue home medication (7) PAD (peripheral artery disease) Status: Acute - Time Spent With Patient Total time spent is greater than 50% in coordination of care (as documented) at patient's floor/unit and/or counseling patient:
[2018-09-11] MEDS: Insulin LISPRO 300 UNITS/3 ML VIAL SQ SCH (17:19)
[2018-09-11] MEDS: *HR* OxyCODONE ER (12 HR) 40 MG TABLET PO SCH (17:19)
[2018-09-11] MEDS ORDERED: Insulin LISPRO 300 UNITS/3 ML VIAL SQ SCH ×2 (18:00→21:00)
[2018-09-11] MEDS: MetroNIDAZOLE 500 MG/100 ML 500 MG/100 ML BAG IVPB SCH (18:29)
[2018-09-11] MEDS: Neosporin OINT 15 GM TUBE TP SCH (18:38)
[2018-09-11] MEDS: carBAMazepine 200 MG TABLET PO SCH (20:53)
[2018-09-11] MEDS: Pregabalin 75 MG CAPSULE PO SCH (20:53)
[2018-09-11] MEDS: Bumetanide 1 MG TABLET PO SCH (20:54)
[2018-09-11] MEDS ORDERED: Divalproex (24 HR) 500 MG TABLET PO SCH (21:00)
[2018-09-12] MEDS: MetroNIDAZOLE 500 MG/100 ML 500 MG/100 ML BAG IVPB SCH ×3 (00:54→12:04)
[2018-09-12] MEDS: *HR* OxyCODONE ER (12 HR) 40 MG TABLET PO SCH (06:13)
[2018-09-12] MEDS: Pregabalin 75 MG CAPSULE PO SCH (07:56)
[2018-09-12] MEDS: carBAMazepine 200 MG TABLET PO SCH (07:56)
[2018-09-12] MEDS: Bumetanide 1 MG TABLET PO SCH (07:57)
[2018-09-12] MEDS: Insulin LISPRO 300 UNITS/3 ML VIAL SQ SCH ×2 (07:58→12:03)
[2018-09-12] MEDS: Neosporin OINT 15 GM TUBE TP SCH (08:05)
[2018-09-12] MEDS ORDERED: Magnesium Oxide 400 MG TABLET PO SCH (09:00)
[2018-09-12] MEDS ORDERED: Cholecalciferol (D-3) 1,000 UNIT TABLET PO SCH (09:00)
[2018-09-12] MEDS ORDERED: Spironolactone 25 MG TABLET PO SCH (09:00)
[2018-09-12] MEDS ORDERED: Aspirin Enteric Coated 81 MG Tablet PO SCH (09:00)
[2018-09-12 11:11] VITALS: BP 152/76
[2018-09-12] MEDS: *HR* OxyCODONE/APAP 5/325 TABLET PO PRN (12:04)
--- NOTE | 2018-09-12 13:34 | Discharge Summary ---
- NOTES TO OUTPATIENT PROVIDER Notes to Outpatient Provider: Follow-up with constipation. Date of Encounter: 09/12/18 Time of Encounter: 13:27 - Discharge Diagnosis (1) Colitis Priority: Primary Status: Acute (2) Fecal impaction of colon Priority: Secondary Status: Acute (3) Kidney malignancy Priority: Secondary Status: Acute Qualifiers: Laterality: unspecified laterality Qualified Code(s): C64.9 - Malignant neoplasm of unspecified kidney, except renal pelvis (4) Diabetes mellitus Priority: Secondary Status: Chronic Qualifiers: Diabetes mellitus type: other specified (including ALISHA) Qualified Code(s): E13.00 - Other specified diabetes mellitus with hyperosmolarity without nonketotic hyperglycemic-hyperosmolar coma ([facility]) (5) Seizure Priority: Secondary Status: Chronic (6) Hypertension Priority: Secondary Status: Acute Qualifiers: Hypertension type: essential hypertension Qualified Code(s): I10 - Essential (primary) hypertension (7) PAD (peripheral artery disease) Priority: Secondary Status: Acute Hospital course: Mr. Edmondson is a 63-year-old male with a past medical history of Hypertension, hyperlipidemia, CHF, COPD, chronic pain who presents from home via EMS for evaluation of left lower quadrant sharp stabbing abdominal pain. the patient has history chronic constipation secondary to his chronic opioid medication for chronic pain. Typically has a bowel movement every 3-4 days. Last bowel movement was yesterday. CT scan of the abdomen was obtained and revealed colitis, most likely stercoral colitis, involving about 10 cm segment of pro ximal sigmoid colon. There is relative fecal distention and possibly some degree of impaction compared to the rest of the descending colon which is relatively collapsed, in addition to wall thickening and pericolonic inflammatory stranding in the involved segment. surgery was consulted for further evaluation and management and patient was admitted to the hospital. Patient started on Cipro/Flagyl. Milk and molasses enema given and patient had large bowel movements and tolerated diet. Surgery was consulted and signed off since there was no acute surgical issues. Patient was discharged with Senna Plus, Cipro/Flagyl. - Time Spent with Patient Total time spent providing and/or coordinating discharge services: - Discharge Medications Prescriptions: Continued Divalproex (24 HR) [Depakote ER (24 HR)] 1,500 mg PO HS carBAMazepine [Tegretol] 300 mg PO BID Amitriptyline [Elavil] 50 mg PO HS Rosuvastatin Calcium [Crestor] 40 mg PO DAILY Montelukast [Singulair] 10 mg PO DAILY Oxycodone HCl/Acetaminophen [Percocet 5-325 mg Tablet] 1 tab PO QID PRN PRN Reason: Breakthrough Pain Magnesium Oxide [Magnesium] 400 mg PO DAILY Cholecalciferol (D-3) [Vitamin D] 1,000 unit PO DAILY OxyCODONE ER (12 HR) [OxyCONTIN] 40 mg PO Q12HR Allopurinol [Zyloprim] 300 mg PO BID Pregabalin [Lyrica] 150 mg PO BID Aspirin [Lo-Dose Aspirin EC] 81 mg PO DAILY Bumetanide [Bumex] 2 mg PO BID #60 tablet Spironolactone [Aldactone] 25 mg PO DAILY #30 tablet Home Medications: Allopurinol [Zyloprim] 300 mg PO BID 10/02/17 [History] Amitriptyline [Elavil] 50 mg PO HS 10/02/17 [History] Aspirin [Lo-Dose Aspirin EC] 81 mg PO DAILY 10/02/17 [History] Cholecalciferol (D-3) [Vitamin D] 1,000 unit PO DAILY 10/02/17 [History] Divalproex (24 HR) [Depakote ER (24 HR)] 1,500 mg PO HS 10/02/17 [History] Magnesium Oxide [Magnesium] 400 mg PO DAILY 10/02/17 [History] Montelukast [Singulair] 10 mg PO DAILY 10/02/17 [History] OxyCODONE ER (12 HR) [OxyCONTIN] 40 mg PO Q12HR 10/02/17 [History] Oxycodone HCl/Acetaminophen [Percocet 5-325 mg Tablet] 1 tab PO QID PRN 10/02/17 [History] Pregabalin [Lyrica] 150 mg PO BID 10/02/17 [History] Rosuvastatin Calcium [Crestor] 40 mg PO DAILY 10/02/17 [History] carBAMazepine [Tegretol] 300 mg PO BID 10/02/17 [History] Bumetanide [Bumex] 2 mg PO BID #60 tablet 10/03/17 [Rx] Spironolactone [Aldactone] 25 mg PO DAILY #30 tablet 10/03/17 [Rx] Ciprofloxacin HCl [Cipro] 500 mg PO BID #14 tablet 09/12/18 [Rx] Sennosides/Docusate Sodium [Senna Plus] 1 each PO BID #60 tablet 09/12/18 [Rx] metroNIDAZOLE [Flagyl] 500 mg PO TID #21 tablet 09/12/18 [Rx] Allergies/Adverse Reactions: Allergy/AdvReac Type Severity Reaction Status Date / Time No Known Allergies Allergy Verified 09/11/18 06:12 Date of admission: 09/11/18 10:39 Primary care physician: [facility] Consults: 09/11/18 08:46 Consult to Surgery [CONS] Stat Consulting Provider: Acute Care Surgery Reason for Consult: Colitis Call Completed: Yes - Constitutional Vitals: Temp Pulse Resp BP Pulse Ox 98.2 F 83 18 152/76 92 09/12/18 11:10 09/12/18 11:10 09/12/18 11:10 09/12/18 11:10 09/12/18 11:10 Exam: - Head Head exam: Present: atraumatic, normocephalic - Eye Eye exam: Present: PERRL, conjuntiva pink, sclera anicteric Pupils: Present: PERRL - Neck Neck exam general surgery: Present: supple, trachea midline. Absent: lymphadenopathy - Respiratory Respiratory exam: Present: CTAB. Absent: accessory muscle use, rales, rhonchi, wheezes - Cardiovascular Cardiovascular exam: Present: RRR, +S1, +S2. Absent: diastolic murmur, gallop, rubs, systolic murmur - GI/Abdominal GI/Abdominal exam: Present: distended, normal bowel sounds, soft, tenderness, no peritoneal signs - Extremities Exam Extremities exam: Present: warm, radial pulses palpable and symmetrical. Absent: calf tenderness, cyanotic, pedal edema - Neurological Exam Neurological exam: Present: CN II-XII intact, oriented X3, no focal deficits. Absent: pronater drift, facial droop, speech deficit - Skin Skin exam: Present: dry, intact - Patient Status Disposition: Home, Self-Care Condition: Good Functional capacity at discharge: independent ambulation Overall status at discharge: patient is back to baseline - Discharge Instructions Follow Up With: [facility] [Primary Care Provider] - - Diet and Activity Activity: increase activity as tolerated Diet: advance to your usual diet
--- NOTE | 2018-09-14 06:26 | Electrocardiograph Report ---
[facility] Test Date: 2018-09-11 Pat Name: Terrell Edmondson Department: [id number] Room: 3B13 Gender: M [employer]: : [id number] Requested By: Durga Martinez Order Number: [id number] Reading MD: Nain Jimenes Measurements Intervals [place] Rate: 94 P: 64 NC: 165 QRS: 37 QRSD: 111 T: 44 QT: 372 QTc: 466 Interpretive Statements Sinus rhythm RSR' in V1 or V2, right VCD or RVH Baseline wander in lead(s) V4 V5 V6 Electronically Signed On 09-14-2018 6:25:17 EDT by Nain Jimenes
== END 2018-09-12 15:00 | disposition home or self-care (01) | DRG 388 ==
LOC: 3BNU 05:43 → EMEROOARM 05:43 → 3BNU 10:24 → SUATTDRO 10:39
PROVIDERS: ADMIT Internal Medicine Nephrology; ATTEND Student in an Organized Health Care Education/Training Program

== ENCOUNTER 2019-08-04 15:24 | Inpatient (IN) ==
[2019-08-04] MEDS ORDERED: *HR* HYDROcodone/Acet 10/325 mg TABLET PO ONE (15:35)
[2019-08-04 16:14] LABS: Basophils % 0.1 %; Eosinophils % 0.2 %; Hematocrit 45.2 % (37.5-50.1); Hemoglobin 14.9 g/dL (12.9-16.9); Immature Granulocytes % 0.7 % (0-4); Lymphocytes # 0.8 K/mcL (0.6-4.6); Lymphocytes % 8.6 %; Mean Corpuscular Hemoglobin 29.8 pg (28.0-33.3); Mean Corpuscular Volume 90.4 fL (83.0-100.0); Mean Platelet Volume 10.2 fL (9.4-12.4); Monocytes # 1.3 K/mcL (0.0-1.3); Monocytes % 14.5 %; Platelet Count 187 K/mcL (140-400); Red Cell Distribution Width 13.7 % (11.5-14.5); Segmented Neutrophils % 75.9 %; White Blood Count 9.2 K/mcL (4.3-11.1)
[2019-08-04 16:39] LABS: BUN/Creatinine Ratio 27 (6-26); Blood Urea Nitrogen 23 mg/dL (8-23); Calcium 9.9 mg/dL (8.6-10.3); Carbon Dioxide 26 mEq/L (23-29); Chloride 98 mEq/L (98-107); Glucose 275 mg/dL (70-105); Osmolality,Calculated 293 (280-300); Potassium 4.2 mEq/L (3.5-5.1); Sodium 135 mEq/L (136-145); eGFR For African Americans > 60 (> 60); eGFR For Non-African Americans > 60 (> 60)
[2019-08-04] MEDS ORDERED: Acetaminophen 325 MG TABLET PO PRN (17:18)
[2019-08-04] MEDS ORDERED: Naloxone 0.4 MG/ML INJ IVP PRN (17:18)
[2019-08-04] MEDS ORDERED: Bumetanide 1 MG TABLET PO SCH (17:30)
[2019-08-04] MEDS ORDERED: D5% in Water 1,000 ML IVC PRN (18:22)
[2019-08-04] MEDS ORDERED: Dextrose Gel 15 GM/37.5 ML TUBE PO PRN ×2 (18:22)
[2019-08-04] MEDS ORDERED: *HR* Dextrose 50 % in Water (Syg) 50 ML SYRINGE IVP PRN (18:22)
[2019-08-04] MEDS: Insulin LISPRO 300 UNITS/3 ML VIAL SQ SCH ×2 (20:08→23:01)
[2019-08-04] MEDS: Bumetanide 1 MG TABLET PO SCH (20:09)
[2019-08-04] MEDS: *HR* Labetalol 20 MG/4 ML SYRINGE IVP PRN (20:45)
[2019-08-04] MEDS ORDERED: Insulin DETEMIR 100 UNIT/ML X5UNITS SQ SCH (21:00)
[2019-08-04] MEDS: *HR* OxyCODONE ER (12 HR) 40 MG TABLET PO SCH (21:03)
[2019-08-04] MEDS: Divalproex (24 HR) 500 MG TABLET PO SCH (21:41)
[2019-08-04] MEDS: Pregabalin 75 MG CAPSULE PO SCH (21:41)
[2019-08-04] MEDS: Sennosides/Docusate Sodium TABLET PO SCH (21:41)
[2019-08-04] MEDS: carBAMazepine 200 MG TABLET PO SCH (21:42)
[2019-08-04] MEDS ORDERED: Baclofen 10 MG TABLET PO ONE (21:50)
[2019-08-04] MEDS: Ondansetron 4 MG/2 ML VIAL IVP PRN (22:58)
[2019-08-05] MEDS ORDERED: *HR* Promethazine 25 MG/ML VIAL IVP ONE ×2 (00:09→03:35)
[2019-08-05] MEDS: Ketorolac 15 MG/ML VIAL IVP PRN ×3 (00:27→14:51)
[2019-08-05] MEDS: *HR* Labetalol 20 MG/4 ML SYRINGE IVP PRN ×3 (00:28→07:00)
[2019-08-05] MEDS: *HR* Enoxaparin 40 MG/0.4 ML SYRINGE SQ SCH (06:10)
[2019-08-05] MEDS: Ondansetron 4 MG/2 ML VIAL IVP PRN ×2 (06:58→14:58)
[2019-08-05] MEDS: Insulin LISPRO 300 UNITS/3 ML VIAL SQ SCH ×4 (08:34→21:51)
[2019-08-05] MEDS: Insulin DETEMIR 100 UNIT/ML X5UNITS SQ SCH ×2 (08:39→22:02)
[2019-08-05] MEDS: *HR* Promethazine 25 MG/ML VIAL IVP PRN ×2 (08:44→22:59)
[2019-08-05] MEDS: Magnesium Oxide 400 MG TABLET PO SCH (09:04)
[2019-08-05] MEDS: Aspirin Enteric Coated 81 MG Tablet PO SCH (09:04)
[2019-08-05] MEDS: *HR* OxyCODONE ER (12 HR) 40 MG TABLET PO SCH ×2 (09:04→21:53)
[2019-08-05] MEDS: carBAMazepine 200 MG TABLET PO SCH ×2 (09:04→21:53)
[2019-08-05] MEDS: allopurinoL 300 MG TABLET PO SCH (09:04)
[2019-08-05] MEDS: Pregabalin 75 MG CAPSULE PO SCH ×2 (09:04→21:54)
[2019-08-05] MEDS: Spironolactone 25 MG TABLET PO SCH (09:04)
[2019-08-05] MEDS: carvediloL 6.25 MG TABLET PO SCH ×2 (09:05→16:49)
[2019-08-05] MEDS: Sennosides/Docusate Sodium TABLET PO SCH ×2 (09:05→21:54)
[2019-08-05] MEDS: amLODIPine 5 MG TABLET PO SCH (09:05)
[2019-08-05] MEDS: Bumetanide 1 MG TABLET PO SCH ×2 (09:06→16:49)
[2019-08-05] MEDS: polyethylene glycoL 3350 17 GM POWD.PACK PO SCH (09:07)
[2019-08-05] MEDS: *HR* OxyCODONE/APAP 5/325 TABLET PO PRN ×2 (10:03→16:55)
[2019-08-05] MEDS: Divalproex (24 HR) 500 MG TABLET PO SCH (21:54)
[2019-08-06] MEDS: *HR* Enoxaparin 40 MG/0.4 ML SYRINGE SQ SCH (04:56)
[2019-08-06 06:39] LABS: Hematocrit 43.1 % (37.5-50.1); Hemoglobin 13.9 g/dL (12.9-16.9); Mean Corpuscular HGB Conc 32.3 g/dL (31.6-35.5); Mean Corpuscular Hemoglobin 29.8 pg (28.0-33.3); Mean Corpuscular Volume 92.3 fL (83.0-100.0); Mean Platelet Volume 10.5 fL (9.4-12.4); Platelet Count 215 K/mcL (140-400); Red Blood Count 4.67 M/mcL (4.19-5.50); Red Cell Distribution Width 13.9 % (11.5-14.5); White Blood Count 8.5 K/mcL (4.3-11.1)
[2019-08-06 06:59] LABS: Albumin 3.9 g/dL (3.5-5.7); Albumin/Globulin Ratio 1.1 (1.1-2.2); Bilirubin,Direct 0.1 mg/dL (0.0-0.2); Bilirubin,Indirect 0.2 mg/dL (0.0-1.0); Bilirubin,Total 0.3 mg/dL (0.3-1.0); Globulin 3.4 g/dL (2.4-3.5); Total Protein 7.3 g/dL (6.4-8.9)
[2019-08-06 07:00] LABS: BUN/Creatinine Ratio 27 (6-26); Blood Urea Nitrogen 29 mg/dL (8-23); Calcium 9.5 mg/dL (8.6-10.3); Carbon Dioxide 35 mEq/L (23-29); Chloride 94 mEq/L (98-107); Glucose 188 mg/dL (70-105); Magnesium 2.4 mg/dL (1.6-2.6); Osmolality,Calculated 295 (280-300); Potassium 4.1 mEq/L (3.5-5.1); Sodium 137 mEq/L (136-145); eGFR For African Americans > 60 (> 60); eGFR For Non-African Americans > 60 (> 60)
[2019-08-06] MEDS: *HR* OxyCODONE ER (12 HR) 40 MG TABLET PO SCH ×2 (07:50→23:03)
[2019-08-06] MEDS: allopurinoL 300 MG TABLET PO SCH (07:50)
[2019-08-06] MEDS: Bumetanide 1 MG TABLET PO SCH ×2 (07:50→16:16)
[2019-08-06] MEDS: Aspirin Enteric Coated 81 MG Tablet PO SCH (07:50)
[2019-08-06] MEDS: amLODIPine 5 MG TABLET PO SCH (07:50)
[2019-08-06] MEDS: Magnesium Oxide 400 MG TABLET PO SCH (07:50)
[2019-08-06] MEDS: Pregabalin 75 MG CAPSULE PO SCH ×2 (07:50→23:04)
[2019-08-06] MEDS: carvediloL 6.25 MG TABLET PO SCH ×2 (07:50→16:16)
[2019-08-06] MEDS: carBAMazepine 200 MG TABLET PO SCH ×2 (07:51→21:00)
[2019-08-06] MEDS: Spironolactone 25 MG TABLET PO SCH (07:51)
[2019-08-06] MEDS: Sennosides/Docusate Sodium TABLET PO SCH ×2 (07:51→21:00)
[2019-08-06] MEDS: polyethylene glycoL 3350 17 GM POWD.PACK PO SCH (07:52)
[2019-08-06] MEDS: Insulin LISPRO 300 UNITS/3 ML VIAL SQ SCH ×4 (08:01→21:01)
[2019-08-06] MEDS: Insulin DETEMIR 100 UNIT/ML X5UNITS SQ SCH ×2 (08:02→21:00)
[2019-08-06 08:13] LABS: Estimated Average Glucose 180 mg/dl
[2019-08-06] MEDS: *HR* OxyCODONE/APAP 7.5/325 TABLET PO PRN ×2 (13:46→21:10)
[2019-08-06] MEDS: Divalproex (24 HR) 500 MG TABLET PO SCH (23:03)
[2019-08-07] MEDS: *HR* OxyCODONE/APAP 7.5/325 TABLET PO PRN ×2 (02:19→14:40)
[2019-08-07] MEDS: *HR* Enoxaparin 40 MG/0.4 ML SYRINGE SQ SCH (05:10)
[2019-08-07] MEDS: Bumetanide 1 MG TABLET PO SCH ×2 (07:52→16:21)
[2019-08-07] MEDS: Pregabalin 75 MG CAPSULE PO SCH ×2 (07:53→21:37)
[2019-08-07] MEDS: carBAMazepine 200 MG TABLET PO SCH ×2 (07:54→21:39)
[2019-08-07] MEDS: Aspirin Enteric Coated 81 MG Tablet PO SCH (07:54)
[2019-08-07] MEDS: Magnesium Oxide 400 MG TABLET PO SCH (07:55)
[2019-08-07] MEDS: allopurinoL 300 MG TABLET PO SCH (07:55)
[2019-08-07] MEDS: Spironolactone 25 MG TABLET PO SCH (07:55)
[2019-08-07] MEDS: *HR* OxyCODONE ER (12 HR) 40 MG TABLET PO SCH ×2 (07:55→21:39)
[2019-08-07] MEDS: Sennosides/Docusate Sodium TABLET PO SCH ×2 (07:55→21:40)
[2019-08-07] MEDS: carvediloL 6.25 MG TABLET PO SCH ×2 (07:56→16:21)
[2019-08-07] MEDS: Insulin LISPRO 300 UNITS/3 ML VIAL SQ SCH ×4 (08:00→23:21)
[2019-08-07 08:02] LABS: BUN/Creatinine Ratio 30 (6-26); Blood Urea Nitrogen 27 mg/dL (8-23); Calcium 9.3 mg/dL (8.6-10.3); Carbon Dioxide 33 mEq/L (23-29); Chloride 96 mEq/L (98-107); Glucose 126 mg/dL (70-105); Osmolality,Calculated 289 (280-300); Sodium 136 mEq/L (136-145); eGFR For African Americans > 60 (> 60); eGFR For Non-African Americans > 60 (> 60)
[2019-08-07] MEDS: polyethylene glycoL 3350 17 GM POWD.PACK PO SCH (11:20)
[2019-08-07] MEDS ORDERED: Baclofen 10 MG TABLET PO PRN (11:21)
[2019-08-07] MEDS: Insulin DETEMIR 100 UNIT/ML X5UNITS SQ SCH ×2 (11:26→23:22)
[2019-08-07] MEDS: Divalproex (24 HR) 500 MG TABLET PO SCH (23:22)
[2019-08-08] MEDS: *HR* OxyCODONE/APAP 7.5/325 TABLET PO PRN ×2 (03:39→14:52)
[2019-08-08] MEDS: *HR* Enoxaparin 40 MG/0.4 ML SYRINGE SQ SCH (05:45)
[2019-08-08] MEDS: carvediloL 6.25 MG TABLET PO SCH ×2 (08:17→16:53)
[2019-08-08] MEDS: Spironolactone 25 MG TABLET PO SCH (08:17)
[2019-08-08] MEDS: allopurinoL 300 MG TABLET PO SCH (08:17)
[2019-08-08] MEDS: Magnesium Oxide 400 MG TABLET PO SCH (08:18)
[2019-08-08] MEDS: carBAMazepine 200 MG TABLET PO SCH ×2 (08:18→21:40)
[2019-08-08] MEDS: Pregabalin 75 MG CAPSULE PO SCH ×2 (08:18→21:37)
[2019-08-08] MEDS: Aspirin Enteric Coated 81 MG Tablet PO SCH (08:18)
[2019-08-08] MEDS: Bumetanide 1 MG TABLET PO SCH ×2 (08:18→16:53)
[2019-08-08] MEDS: Sennosides/Docusate Sodium TABLET PO SCH ×2 (08:18→21:39)
[2019-08-08] MEDS: Insulin LISPRO 300 UNITS/3 ML VIAL SQ SCH ×3 (08:19→16:53)
[2019-08-08] MEDS: *HR* OxyCODONE ER (12 HR) 40 MG TABLET PO SCH ×2 (08:19→21:40)
[2019-08-08] MEDS: Insulin DETEMIR 100 UNIT/ML X5UNITS SQ SCH ×2 (08:21→21:45)
[2019-08-08] MEDS: polyethylene glycoL 3350 17 GM POWD.PACK PO SCH (08:21)
[2019-08-08] MEDS ORDERED: Ipratropium/Albuterol Neb 3 ML IH PRN (17:13)
[2019-08-08] MEDS: Divalproex (24 HR) 500 MG TABLET PO SCH (21:45)
[2019-08-09] MEDS ORDERED: *HR* OxyCODONE Immed Rel 5 MG TABLET PO ONE (02:47)
[2019-08-09] MEDS: *HR* Enoxaparin 40 MG/0.4 ML SYRINGE SQ SCH (05:45)
[2019-08-09 06:04] LABS: Basophils % 0.4 %; Eosinophils # 0.1 K/mcL (0.0-0.6); Eosinophils % 1.6 %; Hematocrit 43.6 % (37.5-50.1); Hemoglobin 14.4 g/dL (12.9-16.9); Immature Granulocytes % 0.4 % (0-4); Lymphocytes # 1.4 K/mcL (0.6-4.6); Lymphocytes % 18.8 %; Mean Corpuscular Hemoglobin 29.8 pg (28.0-33.3); Mean Corpuscular Volume 90.1 fL (83.0-100.0); Mean Platelet Volume 10.4 fL (9.4-12.4); Monocytes % 13.5 %; Neutrophils # 4.9 K/mcL (1.6-8.9); Platelet Count 199 K/mcL (140-400); Red Blood Count 4.84 M/mcL (4.19-5.50); Red Cell Distribution Width 13.3 % (11.5-14.5); Segmented Neutrophils % 65.3 %; White Blood Count 7.4 K/mcL (4.3-11.1)
[2019-08-09 06:32] LABS: BUN/Creatinine Ratio 34 (6-26); Blood Urea Nitrogen 31 mg/dL (8-23); Calcium 9.6 mg/dL (8.6-10.3); Carbon Dioxide 32 mEq/L (23-29); Chloride 94 mEq/L (98-107); Glucose 145 mg/dL (70-105); Magnesium 2.1 mg/dL (1.6-2.6); Osmolality,Calculated 287 (280-300); Sodium 134 mEq/L (136-145); eGFR For African Americans > 60 (> 60); eGFR For Non-African Americans > 60 (> 60)
[2019-08-09] MEDS: Insulin LISPRO 300 UNITS/3 ML VIAL SQ SCH ×3 (07:35→17:46)
[2019-08-09] MEDS: Spironolactone 25 MG TABLET PO SCH (09:00)
[2019-08-09] MEDS: *HR* OxyCODONE ER (12 HR) 40 MG TABLET PO SCH ×2 (09:00→20:38)
[2019-08-09] MEDS: Sennosides/Docusate Sodium TABLET PO SCH ×2 (09:00→20:39)
[2019-08-09] MEDS: allopurinoL 300 MG TABLET PO SCH (09:00)
[2019-08-09] MEDS: carvediloL 6.25 MG TABLET PO SCH ×2 (09:01→17:45)
[2019-08-09] MEDS: carBAMazepine 200 MG TABLET PO SCH ×2 (09:01→20:39)
[2019-08-09] MEDS: Pregabalin 75 MG CAPSULE PO SCH ×2 (09:01→20:39)
[2019-08-09] MEDS: Bumetanide 1 MG TABLET PO SCH ×2 (09:01→17:45)
[2019-08-09] MEDS: Magnesium Oxide 400 MG TABLET PO SCH (09:01)
[2019-08-09] MEDS: Aspirin Enteric Coated 81 MG Tablet PO SCH (09:01)
[2019-08-09] MEDS: Insulin DETEMIR 100 UNIT/ML X5UNITS SQ SCH (09:02)
[2019-08-09] MEDS: polyethylene glycoL 3350 17 GM POWD.PACK PO SCH (09:02)
[2019-08-09] MEDS ORDERED: methylPREDNISolone 125 MG/2 ML VIAL IVP ONE ×2 (09:32→12:14)
[2019-08-09] MEDS ORDERED: Lactulose Oral Soln 20 GM/30 ML UDC PO PRN (15:01)
[2019-08-09] MEDS: *HR* OxyCODONE/APAP 7.5/325 TABLET PO PRN (16:01)
[2019-08-09] MEDS: Divalproex (24 HR) 500 MG TABLET PO SCH (20:39)
[2019-08-10] MEDS: Insulin DETEMIR 100 UNIT/ML X5UNITS SQ SCH ×3 (01:01→21:17)
[2019-08-10] MEDS: *HR* OxyCODONE/APAP 7.5/325 TABLET PO PRN ×2 (01:43→16:24)
[2019-08-10 03:01] LABS: Basophils % 0.3 %; Eosinophils % 0.4 %; Hematocrit 43.9 % (37.5-50.1); Hemoglobin 14.5 g/dL (12.9-16.9); Immature Granulocytes % 0.5 % (0-4); Lymphocytes # 1.5 K/mcL (0.6-4.6); Mean Corpuscular Hemoglobin 29.4 pg (28.0-33.3); Mean Platelet Volume 10.4 fL (9.4-12.4); Monocytes # 0.9 K/mcL (0.0-1.3); Monocytes % 11.7 %; Neutrophils # 5.2 K/mcL (1.6-8.9); Platelet Count 225 K/mcL (140-400); Red Blood Count 4.93 M/mcL (4.19-5.50); Red Cell Distribution Width 13.2 % (11.5-14.5); Segmented Neutrophils % 67.1 %; White Blood Count 7.7 K/mcL (4.3-11.1)
[2019-08-10 03:20] LABS: BUN/Creatinine Ratio 35 (6-26); Blood Urea Nitrogen 34 mg/dL (8-23); Calcium 9.9 mg/dL (8.6-10.3); Carbon Dioxide 31 mEq/L (23-29); Chloride 96 mEq/L (98-107); Glucose 267 mg/dL (70-105); Osmolality,Calculated 297 (280-300); Potassium 4.6 mEq/L (3.5-5.1); Sodium 135 mEq/L (136-145); eGFR For African Americans > 60 (> 60); eGFR For Non-African Americans > 60 (> 60)
[2019-08-10] MEDS: *HR* Enoxaparin 40 MG/0.4 ML SYRINGE SQ SCH (05:32)
[2019-08-10] MEDS: Insulin LISPRO 300 UNITS/3 ML VIAL SQ SCH ×4 (07:48→18:17)
[2019-08-10] MEDS ORDERED: Isovue-370 500 ML BOTTLE IVP ONE (08:39)
[2019-08-10] MEDS: polyethylene glycoL 3350 17 GM POWD.PACK PO SCH (09:30)
[2019-08-10] MEDS: carBAMazepine 200 MG TABLET PO SCH ×2 (09:30→21:17)
[2019-08-10] MEDS: Sennosides/Docusate Sodium TABLET PO SCH ×2 (09:30→21:09)
[2019-08-10] MEDS: Magnesium Oxide 400 MG TABLET PO SCH (09:31)
[2019-08-10] MEDS: carvediloL 6.25 MG TABLET PO SCH ×2 (09:31→16:24)
[2019-08-10] MEDS: *HR* OxyCODONE ER (12 HR) 40 MG TABLET PO SCH ×2 (09:31→21:10)
[2019-08-10] MEDS: Spironolactone 25 MG TABLET PO SCH (09:31)
[2019-08-10] MEDS: allopurinoL 300 MG TABLET PO SCH (09:31)
[2019-08-10] MEDS: Bumetanide 1 MG TABLET PO SCH ×2 (09:31→16:24)
[2019-08-10] MEDS: Pregabalin 75 MG CAPSULE PO SCH ×2 (09:31→21:10)
[2019-08-10] MEDS: Aspirin Enteric Coated 81 MG Tablet PO SCH (09:31)
[2019-08-10 14:53] LABS: Source,Synovial Fluid right knee
[2019-08-10 16:40] LABS: Appearance,Synovial Fluid Cloudy (Clear-Hazy); Color,Synovial Fluid Straw (Straw)
[2019-08-10 18:03] LABS: Lymphocytes,Synovial Fluid 0 %
[2019-08-10] MEDS ORDERED: Lactulose Oral Soln 20 GM/30 ML UDC PO SCH (21:00)
[2019-08-10] MEDS: Divalproex (24 HR) 500 MG TABLET PO SCH (21:09)
[2019-08-11] MEDS: *HR* OxyCODONE/APAP 7.5/325 TABLET PO PRN ×2 (03:19→14:32)
[2019-08-11] MEDS: *HR* Enoxaparin 40 MG/0.4 ML SYRINGE SQ SCH (05:23)
[2019-08-11 06:27] LABS: Basophils % 0.5 %; Eosinophils # 0.1 K/mcL (0.0-0.6); Eosinophils % 1.7 %; Hematocrit 41.8 % (37.5-50.1); Hemoglobin 13.8 g/dL (12.9-16.9); Immature Granulocytes % 0.5 % (0-4); Lymphocytes # 1.9 K/mcL (0.6-4.6); Lymphocytes % 22.9 %; Mean Corpuscular Hemoglobin 29.7 pg (28.0-33.3); Mean Corpuscular Volume 89.9 fL (83.0-100.0); Mean Platelet Volume 10.1 fL (9.4-12.4); Monocytes # 1.1 K/mcL (0.0-1.3); Monocytes % 13.5 %; Neutrophils # 5.2 K/mcL (1.6-8.9); Platelet Count 223 K/mcL (140-400); Red Blood Count 4.65 M/mcL (4.19-5.50); Red Cell Distribution Width 13.6 % (11.5-14.5); Segmented Neutrophils % 60.9 %; White Blood Count 8.5 K/mcL (4.3-11.1)
[2019-08-11 06:47] LABS: BUN/Creatinine Ratio 43 (6-26); Blood Urea Nitrogen 40 mg/dL (8-23); Calcium 9.7 mg/dL (8.6-10.3); Carbon Dioxide 32 mEq/L (23-29); Chloride 95 mEq/L (98-107); Glucose 176 mg/dL (70-105); Osmolality,Calculated 292 (280-300); Potassium 4.4 mEq/L (3.5-5.1); Sodium 134 mEq/L (136-145); eGFR For African Americans > 60 (> 60); eGFR For Non-African Americans > 60 (> 60)
[2019-08-11] MEDS: carBAMazepine 200 MG TABLET PO SCH ×2 (08:52→20:38)
[2019-08-11] MEDS: Insulin LISPRO 300 UNITS/3 ML VIAL SQ SCH ×3 (08:52→17:35)
[2019-08-11] MEDS: Lactulose Oral Soln 20 GM/30 ML UDC PO SCH ×2 (08:52→20:29)
[2019-08-11] MEDS: Bumetanide 1 MG TABLET PO SCH ×2 (08:52→17:35)
[2019-08-11] MEDS: allopurinoL 300 MG TABLET PO SCH (08:54)
[2019-08-11] MEDS: Aspirin Enteric Coated 81 MG Tablet PO SCH (08:54)
[2019-08-11] MEDS: predniSONE 20 MG TABLET PO SCH (08:54)
[2019-08-11] MEDS: *HR* OxyCODONE ER (12 HR) 40 MG TABLET PO SCH ×2 (08:54→20:39)
[2019-08-11] MEDS: Spironolactone 25 MG TABLET PO SCH (08:54)
[2019-08-11] MEDS: Magnesium Oxide 400 MG TABLET PO SCH (08:54)
[2019-08-11] MEDS: carvediloL 6.25 MG TABLET PO SCH ×2 (08:54→17:35)
[2019-08-11] MEDS: Pregabalin 75 MG CAPSULE PO SCH ×2 (08:54→20:39)
[2019-08-11] MEDS: Sennosides/Docusate Sodium TABLET PO SCH ×2 (08:54→20:30)
[2019-08-11] MEDS: polyethylene glycoL 3350 17 GM POWD.PACK PO SCH (08:55)
[2019-08-11] MEDS: Insulin DETEMIR 100 UNIT/ML X5UNITS SQ SCH ×2 (09:02→20:39)
[2019-08-11] MEDS: Divalproex (24 HR) 500 MG TABLET PO SCH (20:39)
[2019-08-12 02:05] LABS: Basophils % 0.2 %; Eosinophils # 0.1 K/mcL (0.0-0.6); Eosinophils % 1.1 %; Hematocrit 41.2 % (37.5-50.1); Hemoglobin 13.2 g/dL (12.9-16.9); Immature Granulocytes % 0.5 % (0-4); Lymphocytes # 1.6 K/mcL (0.6-4.6); Lymphocytes % 19.7 %; Mean Corpuscular Hemoglobin 29.5 pg (28.0-33.3); Mean Corpuscular Volume 92.2 fL (83.0-100.0); Mean Platelet Volume 10.2 fL (9.4-12.4); Monocytes % 12.7 %; Neutrophils # 5.3 K/mcL (1.6-8.9); Platelet Count 215 K/mcL (140-400); Red Blood Count 4.47 M/mcL (4.19-5.50); Red Cell Distribution Width 13.4 % (11.5-14.5); Segmented Neutrophils % 65.8 %; White Blood Count 8.1 K/mcL (4.3-11.1)
[2019-08-12 02:25] LABS: BUN/Creatinine Ratio 41 (6-26); Blood Urea Nitrogen 42 mg/dL (8-23); Calcium 9.2 mg/dL (8.6-10.3); Carbon Dioxide 33 mEq/L (23-29); Chloride 94 mEq/L (98-107); Glucose 311 mg/dL (70-105); Magnesium 1.8 mg/dL (1.6-2.6); Osmolality,Calculated 296 (280-300); Potassium 4.3 mEq/L (3.5-5.1); Sodium 132 mEq/L (136-145); eGFR For African Americans > 60 (> 60); eGFR For Non-African Americans > 60 (> 60)
[2019-08-12] MEDS: *HR* OxyCODONE/APAP 7.5/325 TABLET PO PRN (03:50)
[2019-08-12] MEDS: *HR* Enoxaparin 40 MG/0.4 ML SYRINGE SQ SCH (05:15)
[2019-08-12] MEDS: Insulin DETEMIR 100 UNIT/ML X5UNITS SQ SCH ×2 (08:09→20:42)
[2019-08-12] MEDS: Insulin LISPRO 300 UNITS/3 ML VIAL SQ SCH ×3 (08:09→18:22)
[2019-08-12] MEDS: predniSONE 20 MG TABLET PO SCH (08:10)
[2019-08-12] MEDS: Bumetanide 1 MG TABLET PO SCH ×2 (08:10→18:22)
[2019-08-12] MEDS: *HR* OxyCODONE ER (12 HR) 40 MG TABLET PO SCH ×2 (08:10→20:42)
[2019-08-12] MEDS: allopurinoL 300 MG TABLET PO SCH (08:10)
[2019-08-12] MEDS: Pregabalin 75 MG CAPSULE PO SCH ×2 (08:10→20:42)
[2019-08-12] MEDS: Spironolactone 25 MG TABLET PO SCH (08:10)
[2019-08-12] MEDS: Magnesium Oxide 400 MG TABLET PO SCH (08:10)
[2019-08-12] MEDS: Aspirin Enteric Coated 81 MG Tablet PO SCH (08:10)
[2019-08-12] MEDS: carvediloL 6.25 MG TABLET PO SCH ×2 (08:10→18:21)
[2019-08-12] MEDS: carBAMazepine 200 MG TABLET PO SCH ×2 (08:10→20:41)
[2019-08-12] MEDS: polyethylene glycoL 3350 17 GM POWD.PACK PO SCH (08:11)
[2019-08-12] MEDS: Sennosides/Docusate Sodium TABLET PO SCH ×2 (08:11→20:38)
[2019-08-12] MEDS: Lactulose Oral Soln 20 GM/30 ML UDC PO SCH ×2 (09:18→20:38)
[2019-08-12] MEDS: Divalproex (24 HR) 500 MG TABLET PO SCH (20:42)
[2019-08-12] MEDS: Ondansetron 4 MG/2 ML VIAL IVP PRN (23:08)
[2019-08-13] MEDS: *HR* OxyCODONE/APAP 7.5/325 TABLET PO PRN (01:38)
[2019-08-13 01:46] LABS: Basophils % 0.4 %; Eosinophils # 0.1 K/mcL (0.0-0.6); Eosinophils % 1.1 %; Hematocrit 41.8 % (37.5-50.1); Hemoglobin 13.8 g/dL (12.9-16.9); Immature Granulocytes % 0.6 % (0-4); Lymphocytes # 1.6 K/mcL (0.6-4.6); Mean Corpuscular Hemoglobin 30.1 pg (28.0-33.3); Mean Corpuscular Volume 91.3 fL (83.0-100.0); Mean Platelet Volume 10.3 fL (9.4-12.4); Monocytes # 1.2 K/mcL (0.0-1.3); Monocytes % 11.9 %; Neutrophils # 6.8 K/mcL (1.6-8.9); Platelet Count 229 K/mcL (140-400); Red Blood Count 4.58 M/mcL (4.19-5.50); Red Cell Distribution Width 13.3 % (11.5-14.5); White Blood Count 9.7 K/mcL (4.3-11.1)
[2019-08-13 02:06] LABS: BUN/Creatinine Ratio 47 (6-26); Blood Urea Nitrogen 40 mg/dL (8-23); Calcium 9.3 mg/dL (8.6-10.3); Carbon Dioxide 29 mEq/L (23-29); Chloride 96 mEq/L (98-107); Glucose 301 mg/dL (70-105); Magnesium 1.7 mg/dL (1.6-2.6); Osmolality,Calculated 297 (280-300); Potassium 4.4 mEq/L (3.5-5.1); Sodium 133 mEq/L (136-145); eGFR For African Americans > 60 (> 60); eGFR For Non-African Americans > 60 (> 60)
[2019-08-13] MEDS: *HR* Enoxaparin 40 MG/0.4 ML SYRINGE SQ SCH (04:59)
[2019-08-13 06:57] VITALS: BP 134/80
[2019-08-13] MEDS: *HR* OxyCODONE ER (12 HR) 40 MG TABLET PO SCH (08:09)
[2019-08-13] MEDS: Insulin LISPRO 300 UNITS/3 ML VIAL SQ SCH (08:09)
[2019-08-13] MEDS: Insulin DETEMIR 100 UNIT/ML X5UNITS SQ SCH (08:09)
[2019-08-13] MEDS: carBAMazepine 200 MG TABLET PO SCH (08:09)
[2019-08-13] MEDS: allopurinoL 300 MG TABLET PO SCH (08:10)
[2019-08-13] MEDS: Magnesium Oxide 400 MG TABLET PO SCH (08:10)
[2019-08-13] MEDS: Pregabalin 75 MG CAPSULE PO SCH (08:10)
[2019-08-13] MEDS: Aspirin Enteric Coated 81 MG Tablet PO SCH (08:10)
[2019-08-13] MEDS: predniSONE 20 MG TABLET PO SCH (08:10)
[2019-08-13] MEDS: Spironolactone 25 MG TABLET PO SCH (08:10)
[2019-08-13] MEDS: Sennosides/Docusate Sodium TABLET PO SCH (08:10)
[2019-08-13] MEDS: carvediloL 6.25 MG TABLET PO SCH (08:10)
[2019-08-13] MEDS: polyethylene glycoL 3350 17 GM POWD.PACK PO SCH (08:14)
[2019-08-13] MEDS: Lactulose Oral Soln 20 GM/30 ML UDC PO SCH (08:15)
[2019-08-13] MEDS: Bumetanide 1 MG TABLET PO SCH (08:20)
== END 2019-08-13 10:20 | disposition home health service (06) | DRG 551 ==
LOC: 3ANU 15:24 → EMEROOARM 15:24 → SUATTDRO 17:22 → 3ANU 17:38 → SUATTDRO 08-05 11:40
PROVIDERS: ADMIT Internal Medicine; ATTEND Pharmacist

== ENCOUNTER 2020-08-25 17:11 | Inpatient (IN) ==
[2020-08-25 18:38] LABS: Mean Corpuscular HGB Conc 34.1 g/dL (31.6-35.5); Mean Corpuscular Hemoglobin 29.4 pg (28.0-33.3); Mean Corpuscular Volume 86.3 fL (83.0-100.0); Mean Platelet Volume 10.8 fL (9.4-12.4); Platelet Count 227 K/mcL (140-400); Red Cell Distribution Width 14.3 % (11.5-14.5); White Blood Count 11.6 K/mcL (4.3-11.1)
[2020-08-25] MEDS ORDERED: Metoclopramide 10 MG/2 ML VIAL IVP ONE (18:41)
[2020-08-25] MEDS ORDERED: 0.9 % Sodium Chloride 1,000 ML IVC ONE (18:42)
[2020-08-25 18:55] LABS: Alanine Aminotransferase 20 Units/L (7-52); Albumin 4.1 g/dL (3.5-5.7); Albumin/Globulin Ratio 1.3 (1.1-2.2); Alkaline Phosphatase 91 Units/L (34-104); Aspartate Amino Transferase 21 Units/L (13-39); BUN/Creatinine Ratio 23 (6-26); Bilirubin,Direct 0.1 mg/dL (0.0-0.2); Bilirubin,Indirect 0.4 mg/dL (0.0-1.0); Bilirubin,Total 0.5 mg/dL (0.3-1.0); Blood Urea Nitrogen 23 mg/dL (8-23); Carbon Dioxide 26 mEq/L (23-29); Chloride 96 mEq/L (98-107); Globulin 3.2 g/dL (2.4-3.5); Glucose 314 mg/dL (70-105); Lipase 30 Units/L (11-82); Osmolality,Calculated 288 (280-300); Potassium 4.6 mEq/L (3.5-5.1); Sodium 131 mEq/L (136-145); Total Protein 7.3 g/dL (6.4-8.9); eGFR For African Americans > 60 (> 60); eGFR For Non-African Americans > 60 (> 60)
[2020-08-25 19:37] LABS: Bilirubin,Urine Negative (Negative); Blood,Urine Small (Negative); Clarity,Urine Clear (Clear); Color,Urine Light-Yellow (Yellow); Glucose,Urine (UA) >=1000 mg/dL (Normal); Ketones,Urine Negative (Negative); Leukocyte Esterase,Urine Negative (Negative); Mucus,Urine Few per lpf (None-Few); Nitrite,Urine Negative (Negative); PH,Urine 6.5 pH Units (5.0-8.0); Protein,Urine >=600 mg/dL (Neg-Trace); Specific Gravity,Urine 1.021 (1.010-1.025); Squamous Epithelial Cell,Urine Few per hpf (None-Few); Urobilinogen,Urine Normal (Normal); WBC,Urine 0-3 per hpf (0-3)
[2020-08-25] MEDS ORDERED: carvediloL 6.25 MG TABLET PO ONE (20:43)
[2020-08-25] MEDS ORDERED: Spironolactone 25 MG TABLET PO ONE (20:47)
[2020-08-25] MEDS ORDERED: Furosemide 40 MG/4 ML VIAL IVP ONE (22:17)
[2020-08-25] MEDS ORDERED: Naloxone 0.4 MG/ML INJ IVP PRN (23:02)
[2020-08-26] MEDS ORDERED: *HR* Dextrose 50 % in Water (Vial) 50 ML VIAL IVP PRN (00:07)
[2020-08-26] MEDS ORDERED: D5% in Water 1,000 ML IVC PRN (00:07)
[2020-08-26] MEDS ORDERED: Dextrose Gel 15 GM/37.5 ML TUBE PO PRN ×2 (00:07)
[2020-08-26] MEDS ORDERED: Perflutren Lipid Microsphere 1.3 ML in 0.9 % Sodium Chloride 8.7 ML IVP PRN (00:30)
[2020-08-26] MEDS ORDERED: Isovue-370 500 ML BOTTLE IVP ONE ×2 (00:49→01:01)
[2020-08-26] MEDS: Insulin LISPRO 300 UNITS/3 ML VIAL SUBQ SCH ×5 (00:52→23:31)
[2020-08-26] MEDS: Ondansetron 4 MG/2 ML VIAL IVP PRN ×3 (00:57→22:22)
[2020-08-26] MEDS ORDERED: Insulin DETEMIR 100 UNIT/ML X5UNITS SUBQ SCH ×2 (01:00→21:00)
[2020-08-26 02:08] LABS: Hematocrit 43.6 % (37.5-50.1); Hemoglobin 14.3 g/dL (12.9-16.9); Mean Corpuscular HGB Conc 32.8 g/dL (31.6-35.5); Mean Corpuscular Hemoglobin 28.7 pg (28.0-33.3); Mean Corpuscular Volume 87.4 fL (83.0-100.0); Mean Platelet Volume 11.3 fL (9.4-12.4); Platelet Count 251 K/mcL (140-400); Red Blood Count 4.99 M/mcL (4.19-5.50); Red Cell Distribution Width 14.6 % (11.5-14.5); White Blood Count 13.7 K/mcL (4.3-11.1)
[2020-08-26 02:15] LABS: BUN/Creatinine Ratio 22 (6-26); Blood Urea Nitrogen 23 mg/dL (8-23); C-Reactive Protein < 5 mg/L (Less than 10); Calcium 9.4 mg/dL (8.6-10.3); Carbon Dioxide 24 mEq/L (23-29); Chloride 98 mEq/L (98-107); Glucose 322 mg/dL (70-105); Osmolality,Calculated 288 (280-300); Potassium 4.5 mEq/L (3.5-5.1); Sodium 131 mEq/L (136-145); eGFR For African Americans > 60 (> 60); eGFR For Non-African Americans > 60 (> 60)
[2020-08-26] MEDS: *HR* Heparin 5,000 UNIT/ML VIAL SQ SCH ×3 (05:49→19:42)
[2020-08-26 06:39] LABS: Thyroid Stimulating Hormone 4.707 mcIU/mL (0.340-5.600)
[2020-08-26] MEDS: Spironolactone 25 MG TABLET PO SCH (07:39)
[2020-08-26] MEDS: carvediloL 6.25 MG TABLET PO SCH ×2 (07:39→16:22)
[2020-08-26] MEDS ORDERED: LIDOCAINE HCL TP PRN (11:09)
[2020-08-26] MEDS ORDERED: HYDROPHILIC TP PRN (11:09)
[2020-08-26] MEDS ORDERED: Baclofen 10 MG TABLET PO PRN (11:09)
[2020-08-26] MEDS: Pantoprazole 40 MG VIAL IVP SCH (13:26)
[2020-08-26] MEDS: Metoclopramide 10 MG/2 ML VIAL IVP PRN ×2 (13:27→19:45)
[2020-08-26] MEDS: Vancomycin 1,750 MG/517.5 ML IV.SOLN IVPB SCH (13:27)
[2020-08-26] MEDS: Piperacillin/Tazobactam 3.375 GM in 0.9 % Sodium Chloride Mini Bag 100 ML IVPB SCH ×2 (14:53→23:23)
[2020-08-26] MEDS: Artificial Tears SOLN 15 ML BOTTLE BOTH EYES SCH ×2 (16:23→19:40)
[2020-08-26] MEDS ORDERED: Insulin LISPRO 300 UNITS/3 ML VIAL SUBQ SCH (17:00)
[2020-08-26] MEDS: LUBIPROSTONE 8 MCG PO SCH (19:41)
[2020-08-26] MEDS: Sennosides/Docusate Sodium TABLET PO SCH (19:42)
[2020-08-26] MEDS: Pregabalin 75 MG CAPSULE PO SCH (19:43)
[2020-08-26] MEDS: allopurinoL 300 MG TABLET PO SCH (19:48)
[2020-08-26] MEDS: CarBAMazepine 100 MG TABLET PO SCH (19:48)
[2020-08-26] MEDS: Divalproex (24 HR) 500 MG TABLET PO SCH (19:48)
[2020-08-26] MEDS: Insulin DETEMIR 100 UNIT/ML X5UNITS SUBQ SCH (19:49)
[2020-08-26] MEDS ORDERED: NON-FORMULARY MEDICATION 1 EACH EACH (Bumetanide 2 MG Tablet) PO SCH (21:00)
[2020-08-27 00:40] LABS: Basophils % 0.3 %; Eosinophils % 0.2 %; Hematocrit 44.4 % (37.5-50.1); Hemoglobin 15.1 g/dL (12.9-16.9); Immature Granulocytes % 0.3 % (0-4); Lymphocytes # 1.8 K/mcL (0.6-4.6); Lymphocytes % 14.4 %; Mean Corpuscular Hemoglobin 29.2 pg (28.0-33.3); Mean Corpuscular Volume 85.9 fL (83.0-100.0); Mean Platelet Volume 10.6 fL (9.4-12.4); Monocytes # 1.6 K/mcL (0.0-1.3); Monocytes % 12.9 %; Neutrophils # 8.9 K/mcL (1.6-8.9); Platelet Count 245 K/mcL (140-400); Red Blood Count 5.17 M/mcL (4.19-5.50); Red Cell Distribution Width 14.6 % (11.5-14.5); Segmented Neutrophils % 71.9 %; White Blood Count 12.4 K/mcL (4.3-11.1)
[2020-08-27] MEDS: Vancomycin 1,750 MG/517.5 ML IV.SOLN IVPB SCH ×3 (00:52→22:15)
[2020-08-27 00:59] LABS: BUN/Creatinine Ratio 24 (6-26); Blood Urea Nitrogen 26 mg/dL (8-23); Calcium 9.5 mg/dL (8.6-10.3); Carbon Dioxide 23 mEq/L (23-29); Chloride 97 mEq/L (98-107); Glucose 318 mg/dL (70-105); Osmolality,Calculated 285 (280-300); Potassium 4.4 mEq/L (3.5-5.1); Sodium 129 mEq/L (136-145); eGFR For African Americans > 60 (> 60); eGFR For Non-African Americans > 60 (> 60)
[2020-08-27] MEDS: *HR* Heparin 5,000 UNIT/ML VIAL SQ SCH ×3 (06:21→20:31)
[2020-08-27] MEDS: Insulin LISPRO 300 UNITS/3 ML VIAL SUBQ SCH ×3 (06:22→19:04)
[2020-08-27] MEDS ORDERED: NON-FORMULARY MEDICATION 1 EACH EACH (Ezetimibe [Zetia] 10 MG Tablet) PO SCH (09:00)
[2020-08-27] MEDS: Pantoprazole 40 MG VIAL IVP SCH (10:26)
[2020-08-27] MEDS: allopurinoL 300 MG TABLET PO SCH ×2 (10:27→20:33)
[2020-08-27] MEDS: Cholecalciferol (D-3) 1,000 UNIT (25MCG) TABLET PO SCH (10:27)
[2020-08-27] MEDS: Aspirin Enteric Coated 81 MG Tablet PO SCH (10:27)
[2020-08-27] MEDS: Pregabalin 75 MG CAPSULE PO SCH ×2 (10:27→20:33)
[2020-08-27] MEDS: Sennosides/Docusate Sodium TABLET PO SCH ×2 (10:27→20:32)
[2020-08-27] MEDS: *HR* Buprenorphine HCl 2 MG SUBLINGUAL TABLET SL SCH (10:27)
[2020-08-27] MEDS: CarBAMazepine 100 MG TABLET PO SCH ×2 (10:28→20:33)
[2020-08-27] MEDS: Loratadine 10 MG TABLET PO SCH (10:28)
[2020-08-27] MEDS: Magnesium Oxide 400 MG TABLET PO SCH (10:28)
[2020-08-27] MEDS: carvediloL 6.25 MG TABLET PO SCH ×2 (10:28→19:03)
[2020-08-27] MEDS: Spironolactone 25 MG TABLET PO SCH (10:29)
[2020-08-27] MEDS: Piperacillin/Tazobactam 3.375 GM in 0.9 % Sodium Chloride Mini Bag 100 ML IVPB SCH ×3 (10:29→23:12)
[2020-08-27] MEDS: Artificial Tears SOLN 15 ML BOTTLE BOTH EYES SCH ×3 (10:30→20:35)
[2020-08-27] MEDS: LUBIPROSTONE 8 MCG PO SCH ×2 (10:32→20:35)
[2020-08-27] MEDS: Ondansetron 4 MG/2 ML VIAL IVP PRN (10:43)
[2020-08-27] MEDS: Insulin DETEMIR 100 UNIT/ML X5UNITS SUBQ SCH ×2 (10:44→20:35)
[2020-08-27] MEDS ORDERED: *HR* LORazepam 2 MG/ML VIAL IVP PRN (19:36)
[2020-08-27] MEDS ORDERED: Melatonin 3 MG TABLET PO PRN (19:37)
[2020-08-27] MEDS ORDERED: Ipratropium/Albuterol Neb 3 ML IH PRN (19:45)
[2020-08-27] MEDS: Chlorhexidine Rinse 15 ML MOUTHWASH MM SCH (20:31)
[2020-08-27] MEDS: Lactobacillus 1 EACH CAP.SPRINK PO SCH (20:33)
[2020-08-27] MEDS: Divalproex (24 HR) 500 MG TABLET PO SCH (20:34)
[2020-08-28 01:04] LABS: Adenovirus Not Detected (Not Detect); Bordetella Pertussis Not Detected (Not Detect); Chlamydophila pneumoniae Not Detected (Not Detect); Coronavirus 229E Not Detected (Not Detect); Coronavirus HKU1 Not Detected (Not Detect); Coronavirus NL63 Not Detected (Not Detect); Coronavirus OC43 Not Detected (Not Detect); Human Metapneumovirus Not Detected (Not Detect); Human Rhinovirus/Enterovirus Not Detected (Not Detect); Influenza A Subtype 2009 H1 Not Detected (Not Detect); Influenza B Not Detected (Not Detect); Mycoplasma pneumoniae Not Detected (Not Detect); Parainfluenza Virus 1 Not Detected (Not Detect); Parainfluenza Virus 2 Not Detected (Not Detect); Parainfluenza Virus 3 Not Detected (Not Detect); Parainfluenza Virus 4 Not Detected (Not Detect); Respiratory Syncytial Virus Not Detected (Not Detect); SARS-CoV-2 Not Detected (Not Detect)
[2020-08-28] MEDS ORDERED: Ketorolac 15 MG/ML VIAL IVP ONE (01:09)
[2020-08-28] MEDS: Ringers Solution, Lactated 1,000 ML IVC SCH (03:16)
[2020-08-28 04:17] LABS: Basophils % 0.3 %; Eosinophils # 0.1 K/mcL (0.0-0.6); Eosinophils % 1.1 %; Hematocrit 43.3 % (37.5-50.1); Hemoglobin 14.1 g/dL (12.9-16.9); Immature Granulocytes % 0.5 % (0-4); Lymphocytes # 1.9 K/mcL (0.6-4.6); Lymphocytes % 21.8 %; Mean Corpuscular HGB Conc 32.6 g/dL (31.6-35.5); Mean Corpuscular Hemoglobin 28.7 pg (28.0-33.3); Mean Corpuscular Volume 88.2 fL (83.0-100.0); Mean Platelet Volume 10.5 fL (9.4-12.4); Monocytes # 1.1 K/mcL (0.0-1.3); Monocytes % 12.5 %; Neutrophils # 5.6 K/mcL (1.6-8.9); Platelet Count 193 K/mcL (140-400); Red Blood Count 4.91 M/mcL (4.19-5.50); Red Cell Distribution Width 14.6 % (11.5-14.5); Segmented Neutrophils % 63.8 %; White Blood Count 8.8 K/mcL (4.3-11.1)
[2020-08-28 04:26] LABS: Alanine Aminotransferase 15 Units/L (7-52); Albumin 3.7 g/dL (3.5-5.7); Albumin/Globulin Ratio 1.3 (1.1-2.2); Alkaline Phosphatase 71 Units/L (34-104); Aspartate Amino Transferase 14 Units/L (13-39); BUN/Creatinine Ratio 21 (6-26); Bilirubin,Total 0.5 mg/dL (0.3-1.0); Blood Urea Nitrogen 28 mg/dL (8-23); Calcium 9.4 mg/dL (8.6-10.3); Carbon Dioxide 28 mEq/L (23-29); Chloride 99 mEq/L (98-107); Globulin 2.8 g/dL (2.4-3.5); Glucose 226 mg/dL (70-105); Osmolality,Calculated 287 (280-300); Phosphorous 4.4 mg/dL (2.7-4.5); Potassium 4.8 mEq/L (3.5-5.1); Sodium 132 mEq/L (136-145); Total Protein 6.5 g/dL (6.4-8.9); eGFR For African Americans > 60 (> 60); eGFR For Non-African Americans 54 (> 60)
[2020-08-28 05:01] LABS: Estimated Average Glucose 157 mg/dl; Hemoglobin A1C 7.1 %
[2020-08-28] MEDS: *HR* Heparin 5,000 UNIT/ML VIAL SQ SCH ×4 (05:04→22:05)
[2020-08-28] MEDS ORDERED: Multivit/Ca/Min/Fe/FA 1 TAB TABLET PO SCH (09:00)
[2020-08-28 09:10] LABS: INR 1.2; Prothrombin Time 13.9 Seconds (9.4-12.1)
[2020-08-28] MEDS ORDERED: *HR* Propofol 200 MG/20 ML VIAL IVP ONE (09:27)
[2020-08-28] MEDS ORDERED: Lidocaine -MPF 2% 2 ML VIAL ONE (09:28)
[2020-08-28] MEDS ORDERED: *HR* Succinylcholine 200 MG/10 ML VIAL IVP ONE (09:28)
[2020-08-28] MEDS: Piperacillin/Tazobactam 3.375 GM in 0.9 % Sodium Chloride Mini Bag 100 ML IVPB SCH ×2 (10:29→14:49)
[2020-08-28] MEDS: Vancomycin 1,750 MG/517.5 ML IV.SOLN IVPB SCH (10:29)
[2020-08-28] MEDS: Loratadine 10 MG TABLET PO SCH (10:32)
[2020-08-28] MEDS: Cholecalciferol (D-3) 1,000 UNIT (25MCG) TABLET PO SCH (10:32)
[2020-08-28] MEDS: Magnesium Oxide 400 MG TABLET PO SCH (10:32)
[2020-08-28] MEDS: CarBAMazepine 100 MG TABLET PO SCH ×2 (10:32→22:03)
[2020-08-28] MEDS: Chlorhexidine Rinse 15 ML MOUTHWASH MM SCH ×2 (10:32→22:03)
[2020-08-28] MEDS: carvediloL 6.25 MG TABLET PO SCH ×2 (10:33→16:33)
[2020-08-28] MEDS: Lactobacillus 1 EACH CAP.SPRINK PO SCH ×2 (10:33→22:04)
[2020-08-28] MEDS: *HR* Buprenorphine HCl 2 MG SUBLINGUAL TABLET SL SCH (10:33)
[2020-08-28] MEDS: allopurinoL 300 MG TABLET PO SCH ×2 (10:33→22:04)
[2020-08-28] MEDS: Spironolactone 25 MG TABLET PO SCH (10:33)
[2020-08-28] MEDS: Pantoprazole 40 MG VIAL IVP SCH (10:33)
[2020-08-28] MEDS: Sennosides/Docusate Sodium TABLET PO SCH ×2 (10:33→22:04)
[2020-08-28] MEDS: Pregabalin 75 MG CAPSULE PO SCH ×2 (10:33→22:05)
[2020-08-28] MEDS: Artificial Tears SOLN 15 ML BOTTLE BOTH EYES SCH ×3 (10:34→22:05)
[2020-08-28] MEDS: Aspirin Enteric Coated 81 MG Tablet PO SCH (10:34)
[2020-08-28] MEDS: Insulin DETEMIR 100 UNIT/ML X5UNITS SUBQ SCH ×2 (10:34→22:14)
[2020-08-28] MEDS: Insulin LISPRO 300 UNITS/3 ML VIAL SUBQ SCH ×3 (10:34→16:33)
[2020-08-28] MEDS: LUBIPROSTONE 8 MCG PO SCH ×2 (10:34→22:05)
[2020-08-28] MEDS ORDERED: Vancomycin 1,750 MG/517.5 ML IV.SOLN IVPB SCH (22:00)
[2020-08-28] MEDS: Divalproex (24 HR) 500 MG TABLET PO SCH (22:04)
[2020-08-29] MEDS: Piperacillin/Tazobactam 3.375 GM in 0.9 % Sodium Chloride Mini Bag 100 ML IVPB SCH (00:19)
[2020-08-29 02:44] LABS: Basophils % 0.6 %; Eosinophils # 0.1 K/mcL (0.0-0.6); Hematocrit 39.8 % (37.5-50.1); Hemoglobin 12.8 g/dL (12.9-16.9); Immature Granulocytes % 0.5 % (0-4); Lymphocytes # 1.6 K/mcL (0.6-4.6); Lymphocytes % 23.6 %; Mean Corpuscular HGB Conc 32.2 g/dL (31.6-35.5); Mean Corpuscular Hemoglobin 28.3 pg (28.0-33.3); Mean Corpuscular Volume 88.1 fL (83.0-100.0); Mean Platelet Volume 10.5 fL (9.4-12.4); Monocytes # 0.8 K/mcL (0.0-1.3); Monocytes % 12.7 %; Platelet Count 174 K/mcL (140-400); Red Blood Count 4.52 M/mcL (4.19-5.50); Red Cell Distribution Width 14.3 % (11.5-14.5); Segmented Neutrophils % 60.6 %; White Blood Count 6.6 K/mcL (4.3-11.1)
[2020-08-29 03:08] LABS: Alanine Aminotransferase 14 Units/L (7-52); Albumin 3.4 g/dL (3.5-5.7); Albumin/Globulin Ratio 1.3 (1.1-2.2); Alkaline Phosphatase 66 Units/L (34-104); Aspartate Amino Transferase 12 Units/L (13-39); BUN/Creatinine Ratio 23 (6-26); Bilirubin,Total 0.4 mg/dL (0.3-1.0); Blood Urea Nitrogen 23 mg/dL (8-23); Calcium 8.6 mg/dL (8.6-10.3); Carbon Dioxide 25 mEq/L (23-29); Chloride 103 mEq/L (98-107); Globulin 2.7 g/dL (2.4-3.5); Glucose 121 mg/dL (70-105); Magnesium 1.9 mg/dL (1.6-2.6); Osmolality,Calculated 281 (280-300); Phosphorous 3.6 mg/dL (2.7-4.5); Potassium 4.5 mEq/L (3.5-5.1); Sodium 133 mEq/L (136-145); Total Protein 6.1 g/dL (6.4-8.9); eGFR For African Americans > 60 (> 60); eGFR For Non-African Americans > 60 (> 60)
[2020-08-29] MEDS: Ringers Solution, Lactated 1,000 ML IVC SCH (03:26)
[2020-08-29] MEDS: *HR* Heparin 5,000 UNIT/ML VIAL SQ SCH (05:20)
[2020-08-29 11:11] VITALS: BP 171/89
== END 2020-08-29 13:08 | disposition home or self-care (01) | DRG 281 ==
LOC: 2ANU 17:11 → EMEROOARM 17:11 → SUATTDRO 22:39 → 2ANU 08-26 00:02
PROVIDERS: ADMIT Internal Medicine; ATTEND Internal Medicine
PROC: ENDOEBX (2020-08-28 13:00)

== ENCOUNTER 2020-10-25 23:49 | Inpatient (IN) ==
[2020-10-26] MEDS ORDERED: Albuterol 2.5 MG/3 ML NEBULIZER IH ONE (03:34)
[2020-10-26 05:06] LABS: Basophils % 0.6 %; Eosinophils # 0.3 K/mcL (0.0-0.6); Eosinophils % 4.8 %; Hematocrit 39.4 % (37.5-50.1); Immature Granulocytes % 0.5 % (0-4); Lymphocytes # 1.6 K/mcL (0.6-4.6); Mean Corpuscular HGB Conc 30.5 g/dL (31.6-35.5); Mean Corpuscular Hemoglobin 28.1 pg (28.0-33.3); Mean Corpuscular Volume 92.3 fL (83.0-100.0); Mean Platelet Volume 10.6 fL (9.4-12.4); Monocytes # 0.7 K/mcL (0.0-1.3); Monocytes % 10.4 %; Neutrophils # 3.8 K/mcL (1.6-8.9); Platelet Count 149 K/mcL (140-400); Red Blood Count 4.27 M/mcL (4.19-5.50); Red Cell Distribution Width 16.1 % (11.5-14.5); Segmented Neutrophils % 58.7 %; White Blood Count 6.5 K/mcL (4.3-11.1)
[2020-10-26 05:32] LABS: BUN/Creatinine Ratio 25 (6-26); Blood Urea Nitrogen 31 mg/dL (8-23); Calcium 9.3 mg/dL (8.6-10.3); Carbon Dioxide 31 mEq/L (23-29); Chloride 101 mEq/L (98-107); Glucose 113 mg/dL (70-105); Osmolality,Calculated 295 (280-300); Sodium 139 mEq/L (136-145); Troponin I < 0.03 ng/mL (< 0.04); eGFR For African Americans > 60 (> 60); eGFR For Non-African Americans 57 (> 60)
[2020-10-26] MEDS ORDERED: Isovue-370 500 ML BOTTLE IVP ONE (07:42)
[2020-10-26] MEDS ORDERED: Furosemide 20 MG/2 ML VIAL IVP ONE (07:47)
[2020-10-26] MEDS ORDERED: Ipratropium/Albuterol Neb 3 ML IH ONE (11:27)
[2020-10-26] MEDS ORDERED: Doxycycline 100 MG CAPSULE PO ONE (11:28)
[2020-10-26] MEDS ORDERED: methylPREDNISolone 125 MG/2 ML VIAL IVP ONE (11:28)
[2020-10-26] MEDS ORDERED: Naloxone 0.4 MG/ML INJ IVP PRN (12:16)
[2020-10-26] MEDS ORDERED: Ondansetron 4 MG/2 ML VIAL IVP PRN (12:16)
[2020-10-26] MEDS ORDERED: *HR* Dextrose 50 % in Water (Vial) 50 ML VIAL IVP PRN (12:17)
[2020-10-26] MEDS ORDERED: Dextrose Gel 15 GM/37.5 ML TUBE PO PRN ×2 (12:17)
[2020-10-26] MEDS ORDERED: D5% in Water 1,000 ML IVC PRN (12:17)
[2020-10-26] MEDS: Azithromycin 250 MG TABLET PO SCH (13:24)
[2020-10-26] MEDS: Albuterol 2.5 MG/3 ML NEBULIZER IH SCH ×3 (15:11→23:07)
[2020-10-26] MEDS: *HR* Buprenorphine HCl 8 MG TAB.SUBL SL SCH ×2 (16:01→22:35)
[2020-10-26] MEDS: Insulin LISPRO 300 UNITS/3 ML VIAL SUBQ SCH (18:01)
[2020-10-26] MEDS: Insulin DETEMIR 100 UNIT/ML X5UNITS SUBQ SCH (20:17)
[2020-10-26] MEDS ORDERED: Furosemide 40 MG/4 ML VIAL IVP SCH (21:00)
[2020-10-27 00:38] LABS: Basophils % 0.4 %; Hematocrit 37.4 % (37.5-50.1); Hemoglobin 12.2 g/dL (12.9-16.9); Immature Granulocytes % 0.6 % (0-4); Lymphocytes # 0.9 K/mcL (0.6-4.6); Mean Corpuscular HGB Conc 32.6 g/dL (31.6-35.5); Mean Corpuscular Hemoglobin 29.5 pg (28.0-33.3); Mean Corpuscular Volume 90.3 fL (83.0-100.0); Mean Platelet Volume 10.8 fL (9.4-12.4); Monocytes # 0.3 K/mcL (0.0-1.3); Monocytes % 5.3 %; Neutrophils # 4.1 K/mcL (1.6-8.9); Platelet Count 151 K/mcL (140-400); Red Blood Count 4.14 M/mcL (4.19-5.50); Red Cell Distribution Width 15.9 % (11.5-14.5); Segmented Neutrophils % 77.7 %; White Blood Count 5.3 K/mcL (4.3-11.1)
[2020-10-27 00:56] LABS: BUN/Creatinine Ratio 25 (6-26); Blood Urea Nitrogen 30 mg/dL (8-23); Calcium 9.2 mg/dL (8.6-10.3); Carbon Dioxide 29 mEq/L (23-29); Chloride 98 mEq/L (98-107); Glucose 247 mg/dL (70-105); Magnesium 2.1 mg/dL (1.6-2.6); Osmolality,Calculated 296 (280-300); Potassium 5.2 mEq/L (3.5-5.1); Sodium 136 mEq/L (136-145); eGFR For African Americans > 60 (> 60); eGFR For Non-African Americans > 60 (> 60)
[2020-10-27] MEDS: Albuterol 2.5 MG/3 ML NEBULIZER IH SCH ×6 (03:42→23:36)
[2020-10-27] MEDS: *HR* Buprenorphine HCl 8 MG TAB.SUBL SL SCH ×3 (05:19→23:11)
[2020-10-27] MEDS ORDERED: Baclofen 10 MG TABLET PO PRN (07:50)
[2020-10-27] MEDS: Bumetanide 1 MG/4 ML VIAL IVP SCH ×2 (08:46→17:22)
[2020-10-27] MEDS: allopurinoL 300 MG TABLET PO SCH ×2 (08:59→21:05)
[2020-10-27] MEDS: MethylPREDNISolone 40 MG/ML VIAL IVP SCH (08:59)
[2020-10-27] MEDS: Azithromycin 250 MG TABLET PO SCH (08:59)
[2020-10-27] MEDS: Aspirin Enteric Coated 81 MG Tablet PO SCH (08:59)
[2020-10-27] MEDS: Sennosides/Docusate Sodium TABLET PO SCH ×2 (08:59→21:04)
[2020-10-27] MEDS: Pregabalin 75 MG CAPSULE PO SCH ×2 (08:59→21:04)
[2020-10-27] MEDS: Artificial Tears SOLN 15 ML BOTTLE BOTH EYES SCH ×3 (09:01→17:22)
[2020-10-27] MEDS: CarBAMazepine 100 MG TABLET PO SCH ×2 (09:01→21:05)
[2020-10-27] MEDS: Magnesium Oxide 400 MG TABLET PO SCH (09:01)
[2020-10-27] MEDS: Insulin LISPRO 300 UNITS/3 ML VIAL SUBQ SCH ×3 (09:01→17:23)
[2020-10-27] MEDS: Insulin DETEMIR 100 UNIT/ML X5UNITS SUBQ SCH ×2 (09:14→21:06)
[2020-10-27] MEDS: Cholecalciferol (D-3) 1,000 UNIT (25MCG) TABLET PO SCH (09:23)
[2020-10-27] MEDS: *HR* Buprenorphine HCl 2 MG SUBLINGUAL TABLET SL SCH (11:41)
[2020-10-27] MEDS: Divalproex (24 HR) 500 MG TABLET PO SCH (21:04)
[2020-10-27] MEDS: *HR* Heparin 5,000 UNIT/ML VIAL SQ SCH (21:06)
[2020-10-28] MEDS: Albuterol 2.5 MG/3 ML NEBULIZER IH SCH ×6 (03:48→23:02)
[2020-10-28] MEDS: *HR* Heparin 5,000 UNIT/ML VIAL SQ SCH ×3 (04:25→21:35)
[2020-10-28] MEDS: *HR* Buprenorphine HCl 8 MG TAB.SUBL SL SCH ×3 (04:27→21:49)
[2020-10-28 06:23] LABS: BUN/Creatinine Ratio 28 (6-26); Blood Urea Nitrogen 29 mg/dL (8-23); Calcium 9.4 mg/dL (8.6-10.3); Carbon Dioxide 36 mEq/L (23-29); Chloride 98 mEq/L (98-107); Glucose 148 mg/dL (70-105); Osmolality,Calculated 299 (280-300); Potassium 4.2 mEq/L (3.5-5.1); Sodium 140 mEq/L (136-145); eGFR For African Americans > 60 (> 60); eGFR For Non-African Americans > 60 (> 60)
[2020-10-28] MEDS: Sennosides/Docusate Sodium TABLET PO SCH ×2 (07:28→21:33)
[2020-10-28] MEDS: CarBAMazepine 100 MG TABLET PO SCH ×2 (07:29→21:34)
[2020-10-28] MEDS: Azithromycin 250 MG TABLET PO SCH (07:29)
[2020-10-28] MEDS: Bumetanide 1 MG/4 ML VIAL IVP SCH ×2 (07:29→16:17)
[2020-10-28] MEDS: Pregabalin 75 MG CAPSULE PO SCH ×2 (07:29→21:34)
[2020-10-28] MEDS: allopurinoL 300 MG TABLET PO SCH ×2 (07:29→21:33)
[2020-10-28] MEDS: Cholecalciferol (D-3) 1,000 UNIT (25MCG) TABLET PO SCH (07:29)
[2020-10-28] MEDS: Magnesium Oxide 400 MG TABLET PO SCH (07:29)
[2020-10-28] MEDS: Aspirin Enteric Coated 81 MG Tablet PO SCH (07:29)
[2020-10-28] MEDS: MethylPREDNISolone 40 MG/ML VIAL IVP SCH (07:30)
[2020-10-28] MEDS: Insulin LISPRO 300 UNITS/3 ML VIAL SUBQ SCH ×3 (07:31→17:10)
[2020-10-28] MEDS: Artificial Tears SOLN 15 ML BOTTLE BOTH EYES SCH ×3 (07:31→21:33)
[2020-10-28] MEDS: Insulin DETEMIR 100 UNIT/ML X5UNITS SUBQ SCH ×2 (07:34→21:39)
[2020-10-28] MEDS: *HR* Buprenorphine HCl 2 MG SUBLINGUAL TABLET SL SCH (11:58)
[2020-10-28] MEDS: Divalproex (24 HR) 500 MG TABLET PO SCH (21:34)
[2020-10-29] MEDS: Albuterol 2.5 MG/3 ML NEBULIZER IH SCH ×4 (04:00→15:43)
[2020-10-29] MEDS: *HR* Buprenorphine HCl 8 MG TAB.SUBL SL SCH (05:37)
[2020-10-29] MEDS: *HR* Heparin 5,000 UNIT/ML VIAL SQ SCH ×2 (05:38→17:51)
[2020-10-29] MEDS: Sennosides/Docusate Sodium TABLET PO SCH (07:36)
[2020-10-29] MEDS: Magnesium Oxide 400 MG TABLET PO SCH (07:37)
[2020-10-29] MEDS: Pregabalin 75 MG CAPSULE PO SCH (07:37)
[2020-10-29] MEDS: CarBAMazepine 100 MG TABLET PO SCH (07:37)
[2020-10-29] MEDS: MethylPREDNISolone 40 MG/ML VIAL IVP SCH (07:37)
[2020-10-29] MEDS: Cholecalciferol (D-3) 1,000 UNIT (25MCG) TABLET PO SCH (07:37)
[2020-10-29] MEDS: Aspirin Enteric Coated 81 MG Tablet PO SCH (07:37)
[2020-10-29] MEDS: Azithromycin 250 MG TABLET PO SCH (07:37)
[2020-10-29] MEDS: allopurinoL 300 MG TABLET PO SCH (07:37)
[2020-10-29] MEDS: Bumetanide 1 MG/4 ML VIAL IVP SCH ×2 (07:38→17:51)
[2020-10-29] MEDS: Artificial Tears SOLN 15 ML BOTTLE BOTH EYES SCH ×2 (07:39→17:51)
[2020-10-29] MEDS: Insulin DETEMIR 100 UNIT/ML X5UNITS SUBQ SCH (09:37)
[2020-10-29] MEDS: Insulin LISPRO 300 UNITS/3 ML VIAL SUBQ SCH ×3 (09:37→17:51)
[2020-10-29 10:26] VITALS: TEMP 97.8
[2020-10-29 11:13] VITALS: BP 163/55; PULSE 86; O2SAT 96
[2020-10-29] MEDS: *HR* Buprenorphine HCl 2 MG SUBLINGUAL TABLET SL SCH (12:40)
== END 2020-10-29 18:10 | disposition home or self-care (01) | DRG 291 ==
LOC: EMEROOARM 23:49 → 3ANU 23:49 → SUATTDRO 10-26 19:13
PROVIDERS: ADMIT Internal Medicine; ATTEND Internal Medicine

== ENCOUNTER 2020-11-12 12:07 | Inpatient (IN) ==
[2020-11-12] MEDS ORDERED: D5% in Water 1,000 ML IVC PRN (14:04)
[2020-11-12] MEDS ORDERED: Dextrose Gel 15 GM/37.5 ML TUBE PO PRN ×2 (14:04)
[2020-11-12] MEDS ORDERED: *HR* Dextrose 50 % in Water (Vial) 50 ML VIAL IVP PRN (14:04)
[2020-11-12] MEDS ORDERED: Ipratropium/Albuterol Neb 3 ML IH PRN (14:08)
[2020-11-12] MEDS ORDERED: Naloxone 0.4 MG/ML INJ IVP PRN (14:57)
[2020-11-12] MEDS ORDERED: Ondansetron 4 MG/2 ML VIAL IVP PRN (15:07)
[2020-11-12] MEDS ORDERED: Acetaminophen 325 MG TABLET PO PRN (15:07)
[2020-11-12] MEDS: MethylPREDNISolone 40 MG/ML VIAL IVP SCH ×2 (17:03→23:46)
[2020-11-12] MEDS: Azithromycin 500 MG in 0.9 % Sodium Chloride 250 ML IVPB SCH (17:04)
[2020-11-12] MEDS: Insulin LISPRO 300 UNITS/3 ML VIAL SUBQ SCH ×2 (17:07→20:45)
[2020-11-12 17:43] LABS: Hemoglobin 12.3 g/dL (12.9-16.9); Mean Corpuscular HGB Conc 30.8 g/dL (31.6-35.5); Mean Corpuscular Hemoglobin 27.8 pg (28.0-33.3); Mean Corpuscular Volume 90.3 fL (83.0-100.0); Mean Platelet Volume 11.6 fL (9.4-12.4); Platelet Count 158 K/mcL (140-400); Red Blood Count 4.43 M/mcL (4.19-5.50); Red Cell Distribution Width 14.9 % (11.5-14.5); White Blood Count 6.7 K/mcL (4.3-11.1)
[2020-11-12] MEDS ORDERED: Furosemide 40 MG/4 ML VIAL IVP ONE (17:55)
[2020-11-12 18:04] LABS: BUN/Creatinine Ratio 30 (6-26); Blood Urea Nitrogen 35 mg/dL (8-23); Calcium 9.1 mg/dL (8.6-10.3); Carbon Dioxide 32 mEq/L (23-29); Chloride 97 mEq/L (98-107); Glucose 353 mg/dL (70-105); Osmolality,Calculated 302 (280-300); Potassium 5.6 mEq/L (3.5-5.1); Sodium 135 mEq/L (136-145); eGFR For African Americans > 60 (> 60); eGFR For Non-African Americans > 60 (> 60)
[2020-11-12] MEDS ORDERED: SODIUM ZIRCONIUM CYCLOSILICATE 5 GM POWD.PACK PO STA (18:46)
[2020-11-12] MEDS: Ipratropium/Albuterol Neb 3 ML IH SCH ×2 (19:55→22:58)
[2020-11-12] MEDS: *HR* Heparin 5,000 UNIT/ML VIAL SQ SCH (20:41)
[2020-11-12] MEDS: Divalproex (24 HR) 500 MG TABLET PO SCH (22:22)
[2020-11-12] MEDS: *HR* Buprenorphine HCl 8 MG TAB.SUBL SL SCH (22:23)
[2020-11-12 22:35] LABS: BUN/Creatinine Ratio 31 (6-26); Blood Urea Nitrogen 37 mg/dL (8-23); Calcium 9.3 mg/dL (8.6-10.3); Carbon Dioxide 32 mEq/L (23-29); Chloride 97 mEq/L (98-107); Glucose 304 mg/dL (70-105); Osmolality,Calculated 304 (280-300); Potassium 4.7 mEq/L (3.5-5.1); Sodium 137 mEq/L (136-145); eGFR For African Americans > 60 (> 60); eGFR For Non-African Americans > 60 (> 60)
[2020-11-13 03:13] LABS: Basophils % 0.2 %; Eosinophils % 0.1 %; Hematocrit 39.4 % (37.5-50.1); Hemoglobin 12.3 g/dL (12.9-16.9); Immature Granulocytes % 0.5 % (0-4); Lymphocytes # 0.7 K/mcL (0.6-4.6); Lymphocytes % 8.7 %; Mean Corpuscular HGB Conc 31.2 g/dL (31.6-35.5); Mean Corpuscular Hemoglobin 27.7 pg (28.0-33.3); Mean Corpuscular Volume 88.7 fL (83.0-100.0); Monocytes # 0.4 K/mcL (0.0-1.3); Monocytes % 4.2 %; Neutrophils # 7.4 K/mcL (1.6-8.9); Platelet Count 185 K/mcL (140-400); Red Blood Count 4.44 M/mcL (4.19-5.50); Red Cell Distribution Width 14.8 % (11.5-14.5); Segmented Neutrophils % 86.3 %; White Blood Count 8.6 K/mcL (4.3-11.1)
[2020-11-13] MEDS: Ipratropium/Albuterol Neb 3 ML IH SCH ×5 (03:28→20:12)
[2020-11-13 03:33] LABS: BUN/Creatinine Ratio 32 (6-26); Blood Urea Nitrogen 34 mg/dL (8-23); Calcium 9.3 mg/dL (8.6-10.3); Carbon Dioxide 31 mEq/L (23-29); Chloride 98 mEq/L (98-107); Glucose 229 mg/dL (70-105); Magnesium 2.2 mg/dL (1.6-2.6); Osmolality,Calculated 299 (280-300); Potassium 4.8 mEq/L (3.5-5.1); Sodium 137 mEq/L (136-145); eGFR For African Americans > 60 (> 60); eGFR For Non-African Americans > 60 (> 60)
[2020-11-13] MEDS: *HR* Heparin 5,000 UNIT/ML VIAL SQ SCH ×3 (05:19→21:21)
[2020-11-13] MEDS: MethylPREDNISolone 40 MG/ML VIAL IVP SCH ×4 (05:20→21:21)
[2020-11-13] MEDS: *HR* Buprenorphine HCl 8 MG TAB.SUBL SL SCH ×4 (05:20→23:14)
[2020-11-13] MEDS: Sennosides/Docusate Sodium TABLET PO SCH ×2 (08:31→21:19)
[2020-11-13] MEDS: Spironolactone 25 MG TABLET PO SCH (08:31)
[2020-11-13] MEDS: Magnesium Oxide 400 MG TABLET PO SCH (08:31)
[2020-11-13] MEDS: Furosemide 40 MG/4 ML VIAL IVP SCH ×2 (08:32→17:13)
[2020-11-13] MEDS: Insulin LISPRO 300 UNITS/3 ML VIAL SUBQ SCH ×6 (08:33→21:32)
[2020-11-13] MEDS ORDERED: NON-FORMULARY MEDICATION 1 EACH EACH (Ezetimibe [Zetia] 10 MG Tablet) PO SCH (09:00)
[2020-11-13] MEDS: Insulin DETEMIR 100 UNIT/ML X5UNITS SUBQ SCH ×2 (09:43→21:33)
[2020-11-13] MEDS ORDERED: Baclofen 10 MG TABLET PO PRN (11:29)
[2020-11-13] MEDS: allopurinoL 300 MG TABLET PO SCH ×2 (12:14→21:19)
[2020-11-13] MEDS: Azithromycin 500 MG in 0.9 % Sodium Chloride 250 ML IVPB SCH (17:14)
[2020-11-13] MEDS: Divalproex (24 HR) 500 MG TABLET PO SCH (21:20)
[2020-11-13] MEDS: CarBAMazepine 100 MG TABLET PO SCH (21:20)
[2020-11-13] MEDS: Pregabalin 75 MG CAPSULE PO SCH (21:20)
[2020-11-13] MEDS: LUBIPROSTONE 8 MCG PO SCH (21:21)
[2020-11-14] MEDS: Ipratropium/Albuterol Neb 3 ML IH SCH ×7 (00:02→23:46)
[2020-11-14 01:34] LABS: Hematocrit 42.5 % (37.5-50.1); Hemoglobin 12.9 g/dL (12.9-16.9); Mean Corpuscular HGB Conc 30.4 g/dL (31.6-35.5); Mean Corpuscular Hemoglobin 27.4 pg (28.0-33.3); Mean Corpuscular Volume 90.4 fL (83.0-100.0); Mean Platelet Volume 11.4 fL (9.4-12.4); Platelet Count 194 K/mcL (140-400); Red Cell Distribution Width 14.9 % (11.5-14.5)
[2020-11-14 01:48] LABS: BUN/Creatinine Ratio 34 (6-26); Blood Urea Nitrogen 37 mg/dL (8-23); Calcium 9.8 mg/dL (8.6-10.3); Carbon Dioxide 32 mEq/L (23-29); Chloride 95 mEq/L (98-107); Glucose 228 mg/dL (70-105); Osmolality,Calculated 300 (280-300); Potassium 4.5 mEq/L (3.5-5.1); Sodium 137 mEq/L (136-145); eGFR For African Americans > 60 (> 60); eGFR For Non-African Americans > 60 (> 60)
[2020-11-14] MEDS: *HR* Heparin 5,000 UNIT/ML VIAL SQ SCH ×3 (05:03→21:04)
[2020-11-14] MEDS: *HR* Buprenorphine HCl 8 MG TAB.SUBL SL SCH ×4 (05:11→23:00)
[2020-11-14] MEDS: CarBAMazepine 100 MG TABLET PO SCH ×2 (08:00→21:02)
[2020-11-14] MEDS: allopurinoL 300 MG TABLET PO SCH ×2 (08:01→21:04)
[2020-11-14] MEDS: Magnesium Oxide 400 MG TABLET PO SCH (08:01)
[2020-11-14] MEDS: Pregabalin 75 MG CAPSULE PO SCH ×2 (08:01→21:03)
[2020-11-14] MEDS: Sennosides/Docusate Sodium TABLET PO SCH ×2 (08:01→21:02)
[2020-11-14] MEDS: Loratadine 10 MG TABLET PO SCH (08:01)
[2020-11-14] MEDS: Spironolactone 25 MG TABLET PO SCH (08:01)
[2020-11-14] MEDS: MethylPREDNISolone 40 MG/ML VIAL IVP SCH (08:02)
[2020-11-14] MEDS: Furosemide 40 MG/4 ML VIAL IVP SCH (08:17)
[2020-11-14] MEDS: Insulin DETEMIR 100 UNIT/ML X5UNITS SUBQ SCH ×2 (08:18→21:26)
[2020-11-14] MEDS: LUBIPROSTONE 8 MCG PO SCH ×2 (08:18→21:05)
[2020-11-14] MEDS: Insulin LISPRO 300 UNITS/3 ML VIAL SUBQ SCH ×6 (08:19→21:26)
[2020-11-14] MEDS: Azithromycin 250 MG TABLET PO SCH (11:25)
[2020-11-14] MEDS: Budesonide/Formoterol 160/4.5 1 PUFF INH IH SCH ×2 (12:04→20:07)
[2020-11-14] MEDS: amLODIPine 5 MG TABLET PO SCH (13:19)
[2020-11-14] MEDS ORDERED: Insulin LISPRO 300 UNITS/3 ML VIAL SUBQ SCH (17:00)
[2020-11-14] MEDS: Bumetanide 1 MG TABLET PO SCH (17:06)
[2020-11-14] MEDS: Divalproex (24 HR) 500 MG TABLET PO SCH (21:03)
[2020-11-15] MEDS: Ipratropium/Albuterol Neb 3 ML IH SCH ×3 (03:58→11:27)
[2020-11-15] MEDS: *HR* Buprenorphine HCl 8 MG TAB.SUBL SL SCH ×2 (04:36→12:39)
[2020-11-15] MEDS: *HR* Heparin 5,000 UNIT/ML VIAL SQ SCH (06:24)
[2020-11-15] MEDS: Insulin LISPRO 300 UNITS/3 ML VIAL SUBQ SCH ×3 (07:21→12:43)
[2020-11-15] MEDS: Bumetanide 1 MG TABLET PO SCH (07:23)
[2020-11-15] MEDS: Magnesium Oxide 400 MG TABLET PO SCH (07:23)
[2020-11-15] MEDS: Pregabalin 75 MG CAPSULE PO SCH (07:23)
[2020-11-15] MEDS: CarBAMazepine 100 MG TABLET PO SCH (07:24)
[2020-11-15] MEDS: Spironolactone 25 MG TABLET PO SCH (07:24)
[2020-11-15] MEDS: Azithromycin 250 MG TABLET PO SCH (07:24)
[2020-11-15] MEDS: amLODIPine 5 MG TABLET PO SCH (07:24)
[2020-11-15] MEDS: allopurinoL 300 MG TABLET PO SCH (07:24)
[2020-11-15] MEDS: Sennosides/Docusate Sodium TABLET PO SCH (07:24)
[2020-11-15] MEDS: Loratadine 10 MG TABLET PO SCH (07:25)
[2020-11-15] MEDS: LUBIPROSTONE 8 MCG PO SCH (07:25)
[2020-11-15] MEDS: Budesonide/Formoterol 160/4.5 1 PUFF INH IH SCH (07:40)
[2020-11-15 07:44] VITALS: BP 133/69; PULSE 82; TEMP 97.7; O2SAT 97
[2020-11-15 07:53] LABS: Hematocrit 38.1 % (37.5-50.1); Hemoglobin 11.8 g/dL (12.9-16.9); Mean Corpuscular Hemoglobin 27.8 pg (28.0-33.3); Mean Corpuscular Volume 89.9 fL (83.0-100.0); Platelet Count 175 K/mcL (140-400); Red Blood Count 4.24 M/mcL (4.19-5.50); Red Cell Distribution Width 15.1 % (11.5-14.5); White Blood Count 8.1 K/mcL (4.3-11.1)
[2020-11-15] MEDS ORDERED: Insulin LISPRO 300 UNITS/3 ML VIAL SUBQ SCH (08:00)
[2020-11-15 08:44] LABS: BUN/Creatinine Ratio 33 (6-26); Blood Urea Nitrogen 37 mg/dL (8-23); Calcium 9.2 mg/dL (8.6-10.3); Carbon Dioxide 32 mEq/L (23-29); Chloride 97 mEq/L (98-107); Glucose 58 mg/dL (70-105); Osmolality,Calculated 294 (280-300); Potassium 4.1 mEq/L (3.5-5.1); Sodium 139 mEq/L (136-145); eGFR For African Americans > 60 (> 60); eGFR For Non-African Americans > 60 (> 60)
[2020-11-15] MEDS ORDERED: predniSONE 20 MG TABLET PO SCH (09:00)
[2020-11-15] MEDS: Insulin DETEMIR 100 UNIT/ML X5UNITS SUBQ SCH (10:18)
== END 2020-11-15 13:37 | disposition home or self-care (01) | DRG 291 ==
LOC: 3ANU → SUATTDRO 12:56
PROVIDERS: ADMIT Student in an Organized Health Care Education/Training Program; ATTEND Internal Medicine

== ENCOUNTER 2021-01-25 18:11 | Inpatient (IN) ==
[2021-01-25] MEDS ORDERED: Bumetanide 1 MG/4 ML VIAL IVP ONE (19:18)
[2021-01-25] MEDS ORDERED: Nitroglycerin 1 INCH/GM PACKET TP ONE (19:20)
[2021-01-25 19:24] LABS: Basophils % 0.2 %; Eosinophils # 0.1 K/mcL (0.0-0.6); Hematocrit 28.6 % (37.5-50.1); Hemoglobin 8.3 g/dL (12.9-16.9); Immature Granulocytes % 0.5 % (0-4); Lymphocytes # 0.8 K/mcL (0.6-4.6); Lymphocytes % 18.4 %; Mean Corpuscular Volume 93.2 fL (83.0-100.0); Mean Platelet Volume 9.2 fL (9.4-12.4); Monocytes # 0.6 K/mcL (0.0-1.3); Monocytes % 13.2 %; Neutrophils # 2.9 K/mcL (1.6-8.9); Platelet Count 256 K/mcL (140-400); Red Blood Count 3.07 M/mcL (4.19-5.50); Red Cell Distribution Width 17.6 % (11.5-14.5); Segmented Neutrophils % 65.7 %; White Blood Count 4.4 K/mcL (4.3-11.1)
[2021-01-25 19:32] LABS: Alanine Aminotransferase 3 Units/L (7-52); Albumin 2.7 g/dL (3.5-5.7); Albumin/Globulin Ratio 0.6 (1.1-2.2); Alkaline Phosphatase 91 Units/L (34-104); Aspartate Amino Transferase 17 Units/L (13-39); BUN/Creatinine Ratio 15 (6-26); Bilirubin,Indirect 0.2 mg/dL (0.0-1.0); Bilirubin,Total 0.2 mg/dL (0.3-1.0); Blood Urea Nitrogen 11 mg/dL (8-23); Calcium 8.4 mg/dL (8.6-10.3); Carbon Dioxide 32 mEq/L (23-29); Chloride 100 mEq/L (98-107); Globulin 4.3 g/dL (2.4-3.5); Glucose 170 mg/dL (70-105); Osmolality,Calculated 287 (280-300); Potassium 5.2 mEq/L (3.5-5.1); Sodium 137 mEq/L (136-145); Troponin I < 0.03 ng/mL (< 0.04); eGFR For African Americans > 60 (> 60); eGFR For Non-African Americans > 60 (> 60)
[2021-01-25 19:46] LABS: Influenza A PCR Negative (Negative); Influenza B PCR Negative (Negative); Resp. Syncytial Virus PCR Negative (Negative)
[2021-01-25 19:48] LABS: SARS-CoV-2 by PCR (In House) Negative (Negative)
[2021-01-25] MEDS ORDERED: Melatonin 3 MG TABLET PO PRN (22:01)
[2021-01-25] MEDS ORDERED: Naloxone 0.4 MG/ML INJ IVP PRN (22:01)
[2021-01-25] MEDS ORDERED: Dextrose Gel 15 GM/37.5 ML TUBE PO PRN ×2 (22:03)
[2021-01-25] MEDS ORDERED: D5% in Water 1,000 ML IVC PRN (22:03)
[2021-01-25] MEDS ORDERED: *HR* Dextrose 50 % in Water (Syg) 50 ML SYRINGE IVP PRN (22:03)
[2021-01-25] MEDS ORDERED: Pantoprazole 40 MG VIAL IVP ONE (23:01)
[2021-01-25] MEDS ORDERED: *HR* Labetalol 20 MG/4 ML SYRINGE IVP ONE (23:10)
[2021-01-25] MEDS ORDERED: Azithromycin 500 MG in 0.9 % Sodium Chloride 250 ML IVPB SCH (23:45)
[2021-01-26] MEDS ORDERED: *HR* Buprenorphine HCl 8 MG TAB.SUBL SL ONE (00:18)
[2021-01-26] MEDS: Insulin DETEMIR 100 UNIT/ML X5UNITS SUBQ SCH ×3 (00:43→21:30)
[2021-01-26] MEDS: ceFAZolin 2,000 MG in 0.9 % Sodium Chloride 100 ML IVPB SCH ×3 (03:37→17:05)
[2021-01-26] MEDS: Pantoprazole 40 MG VIAL IVP SCH ×2 (05:52→17:05)
[2021-01-26] MEDS: MethylPREDNISolone 40 MG/ML VIAL IVP SCH ×2 (05:52→17:05)
[2021-01-26] MEDS ORDERED: *HR* Heparin 5,000 UNIT/ML VIAL SQ SCH (06:00)
[2021-01-26 06:21] LABS: Hematocrit 28.9 % (37.5-50.1); Mean Platelet Volume 9.6 fL (9.4-12.4); Red Cell Distribution Width 17.3 % (11.5-14.5)
[2021-01-26 06:24] LABS: Basophils % 0.4 %; Eosinophils # 0.2 K/mcL (0.0-0.6); Eosinophils % 2.2 %; Hemoglobin 8.3 g/dL (12.9-16.9); Immature Granulocytes % 0.7 % (0-4); Lymphocytes # 1.3 K/mcL (0.6-4.6); Lymphocytes % 18.7 %; Mean Corpuscular HGB Conc 28.7 g/dL (31.6-35.5); Mean Corpuscular Hemoglobin 26.9 pg (28.0-33.3); Mean Corpuscular Volume 93.8 fL (83.0-100.0); Monocytes # 0.8 K/mcL (0.0-1.3); Monocytes % 12.3 %; Neutrophils # 4.4 K/mcL (1.6-8.9); Platelet Count 296 K/mcL (140-400); Red Blood Count 3.08 M/mcL (4.19-5.50); Segmented Neutrophils % 65.7 %; White Blood Count 6.7 K/mcL (4.3-11.1)
[2021-01-26 06:46] LABS: BUN/Creatinine Ratio 14 (6-26); Blood Urea Nitrogen 10 mg/dL (8-23); Calcium 8.6 mg/dL (8.6-10.3); Carbon Dioxide 35 mEq/L (23-29); Chloride 102 mEq/L (98-107); Glucose 100 mg/dL (70-105); Osmolality,Calculated 289 (280-300); Potassium 5.4 mEq/L (3.5-5.1); Sodium 140 mEq/L (136-145); eGFR For African Americans > 60 (> 60); eGFR For Non-African Americans > 60 (> 60)
[2021-01-26] MEDS: Insulin LISPRO 300 UNITS/3 ML VIAL SUBQ SCH ×4 (07:48→21:30)
[2021-01-26] MEDS ORDERED: SODIUM ZIRCONIUM CYCLOSILICATE 5 GM POWD.PACK PO ONE (07:55)
[2021-01-26] MEDS: Ipratropium/Albuterol Neb 3 ML IH SCH ×4 (08:19→21:43)
[2021-01-26] MEDS: Budesonide/Formoterol 160/4.5 1 PUFF INH IH SCH ×2 (08:25→21:43)
[2021-01-26] MEDS: CarBAMazepine 100 MG TABLET PO SCH ×2 (08:29→21:29)
[2021-01-26] MEDS: Bumetanide 1 MG/4 ML VIAL IVP SCH ×2 (08:29→17:06)
[2021-01-26 08:44] LABS: Magnesium 1.8 mg/dL (1.6-2.6)
[2021-01-26] MEDS: *HR* OxyCODONE Immed Rel 5 MG TABLET PO PRN ×2 (12:37→17:06)
[2021-01-26] MEDS: Chlorhexidine Rinse 15 ML MOUTHWASH MM SCH (21:29)
[2021-01-26] MEDS: Lactobacillus 1 EACH CAP.SPRINK PO SCH (21:29)
[2021-01-27] MEDS: *HR* OxyCODONE Immed Rel 5 MG TABLET PO PRN ×3 (01:54→21:47)
[2021-01-27] MEDS: ceFAZolin 2,000 MG in 0.9 % Sodium Chloride 100 ML IVPB SCH ×2 (01:54→09:29)
[2021-01-27 03:50] LABS: Hematocrit 28.9 % (37.5-50.1); Hemoglobin 8.5 g/dL (12.9-16.9); Mean Corpuscular HGB Conc 29.4 g/dL (31.6-35.5); Mean Corpuscular Volume 91.7 fL (83.0-100.0); Mean Platelet Volume 9.7 fL (9.4-12.4); Platelet Count 291 K/mcL (140-400); Red Blood Count 3.15 M/mcL (4.19-5.50); Red Cell Distribution Width 17.3 % (11.5-14.5); White Blood Count 4.2 K/mcL (4.3-11.1)
[2021-01-27 04:12] LABS: BUN/Creatinine Ratio 18 (6-26); Blood Urea Nitrogen 12 mg/dL (8-23); Calcium 8.5 mg/dL (8.6-10.3); Carbon Dioxide 36 mEq/L (23-29); Chloride 98 mEq/L (98-107); Glucose 134 mg/dL (70-105); Magnesium 1.6 mg/dL (1.6-2.6); Osmolality,Calculated 286 (280-300); Phosphorous 3.8 mg/dL (2.7-4.5); Potassium 4.5 mEq/L (3.5-5.1); Sodium 137 mEq/L (136-145); eGFR For African Americans > 60 (> 60); eGFR For Non-African Americans > 60 (> 60)
[2021-01-27] MEDS: Ipratropium/Albuterol Neb 3 ML IH SCH ×4 (04:13→21:15)
[2021-01-27 04:35] LABS: Folate 14.2 ng/mL (3.0-16.0)
[2021-01-27 04:38] LABS: Iron 40 mcg/dL (65-175)
[2021-01-27 04:55] LABS: Ferritin 42 ng/mL (20-250)
[2021-01-27 04:58] LABS: Estimated Average Glucose 169 mg/dl; Hemoglobin A1C 7.5 %
[2021-01-27] MEDS: MethylPREDNISolone 40 MG/ML VIAL IVP SCH ×2 (06:38→17:06)
[2021-01-27] MEDS: Pantoprazole 40 MG VIAL IVP SCH ×2 (06:38→17:06)
[2021-01-27] MEDS: Insulin LISPRO 300 UNITS/3 ML VIAL SUBQ SCH ×4 (07:02→21:48)
[2021-01-27] MEDS ORDERED: amLODIPine 5 MG TABLET PO SCH (09:00)
[2021-01-27] MEDS ORDERED: CeFAZolin (wt based) IVPB SCH (09:00)
[2021-01-27] MEDS: Insulin DETEMIR 100 UNIT/ML X5UNITS SUBQ SCH ×2 (09:02→21:48)
[2021-01-27] MEDS: Lactobacillus 1 EACH CAP.SPRINK PO SCH ×2 (09:03→21:47)
[2021-01-27] MEDS: Cholecalciferol (D-3) 1,000 UNIT (25MCG) TABLET PO SCH (09:03)
[2021-01-27] MEDS: Chlorhexidine Rinse 15 ML MOUTHWASH MM SCH ×2 (09:03→21:47)
[2021-01-27] MEDS: Pregabalin 75 MG CAPSULE PO SCH ×2 (09:03→21:47)
[2021-01-27] MEDS: Bumetanide 1 MG/4 ML VIAL IVP SCH ×2 (09:03→17:06)
[2021-01-27] MEDS: Loratadine 10 MG TABLET PO SCH (09:04)
[2021-01-27] MEDS: amLODIPine 5 MG TABLET PO SCH ×2 (09:04→09:07)
[2021-01-27] MEDS: allopurinoL 300 MG TABLET PO SCH (09:04)
[2021-01-27] MEDS: carBAMazepine 200 MG TABLET PO SCH ×2 (09:04→21:47)
[2021-01-27] MEDS: Budesonide/Formoterol 160/4.5 1 PUFF INH IH SCH ×4 (09:31→21:18)
[2021-01-27] MEDS: ceFAZolin 3,000 MG in 0.9 % Sodium Chloride 100 ML IVPB SCH ×2 (11:19→17:05)
[2021-01-27] MEDS: Divalproex (12 HR) 500 MG TABLET PO SCH (21:46)
[2021-01-28 03:24] LABS: % Iron Saturation 12 % (20-55); Transferrin 239 mg/dL (203-362)
[2021-01-28] MEDS: Ipratropium/Albuterol Neb 3 ML IH SCH ×4 (04:17→19:50)
[2021-01-28] MEDS: *HR* OxyCODONE Immed Rel 5 MG TABLET PO PRN ×2 (05:20→21:12)
[2021-01-28] MEDS: Pantoprazole 40 MG VIAL IVP SCH ×2 (05:20→17:05)
[2021-01-28] MEDS: ceFAZolin 3,000 MG in 0.9 % Sodium Chloride 100 ML IVPB SCH ×2 (05:24→17:05)
[2021-01-28 06:28] LABS: Basophils % 0.4 %; Eosinophils % 0.6 %; Hematocrit 28.9 % (37.5-50.1); Hemoglobin 8.7 g/dL (12.9-16.9); Immature Granulocytes % 0.6 % (0-4); Lymphocytes # 1.7 K/mcL (0.6-4.6); Lymphocytes % 36.1 %; Mean Corpuscular HGB Conc 30.1 g/dL (31.6-35.5); Mean Corpuscular Volume 89.8 fL (83.0-100.0); Mean Platelet Volume 9.7 fL (9.4-12.4); Monocytes # 0.6 K/mcL (0.0-1.3); Neutrophils # 2.4 K/mcL (1.6-8.9); Platelet Count 311 K/mcL (140-400); Red Blood Count 3.22 M/mcL (4.19-5.50); Red Cell Distribution Width 17.4 % (11.5-14.5); Segmented Neutrophils % 50.3 %; White Blood Count 4.7 K/mcL (4.3-11.1)
[2021-01-28 06:50] LABS: BUN/Creatinine Ratio 20 (6-26); Blood Urea Nitrogen 14 mg/dL (8-23); Calcium 8.7 mg/dL (8.6-10.3); Carbon Dioxide 36 mEq/L (23-29); Chloride 95 mEq/L (98-107); Glucose 150 mg/dL (70-105); Magnesium 1.5 mg/dL (1.6-2.6); Osmolality,Calculated 283 (280-300); Phosphorous 3.6 mg/dL (2.7-4.5); Potassium 4.1 mEq/L (3.5-5.1); Sodium 135 mEq/L (136-145); eGFR For African Americans > 60 (> 60); eGFR For Non-African Americans > 60 (> 60)
[2021-01-28] MEDS: Budesonide/Formoterol 160/4.5 1 PUFF INH IH SCH ×4 (07:54→19:52)
[2021-01-28] MEDS: predniSONE 20 MG TABLET PO SCH (08:40)
[2021-01-28] MEDS: carBAMazepine 200 MG TABLET PO SCH ×2 (08:40→20:26)
[2021-01-28] MEDS: Cholecalciferol (D-3) 1,000 UNIT (25MCG) TABLET PO SCH (08:40)
[2021-01-28] MEDS: Loratadine 10 MG TABLET PO SCH (08:40)
[2021-01-28] MEDS: amLODIPine 5 MG TABLET PO SCH (08:40)
[2021-01-28] MEDS: Bumetanide 1 MG/4 ML VIAL IVP SCH ×2 (08:40→17:05)
[2021-01-28] MEDS: Chlorhexidine Rinse 15 ML MOUTHWASH MM SCH ×2 (08:40→20:26)
[2021-01-28] MEDS: Pregabalin 75 MG CAPSULE PO SCH ×2 (08:40→20:26)
[2021-01-28] MEDS: Lactobacillus 1 EACH CAP.SPRINK PO SCH ×2 (08:41→20:27)
[2021-01-28] MEDS: allopurinoL 300 MG TABLET PO SCH (08:41)
[2021-01-28] MEDS: Insulin DETEMIR 100 UNIT/ML X5UNITS SUBQ SCH ×2 (08:42→21:12)
[2021-01-28] MEDS: Insulin LISPRO 300 UNITS/3 ML VIAL SUBQ SCH ×6 (08:42→20:27)
[2021-01-28] MEDS ORDERED: Insulin LISPRO 300 UNITS/3 ML VIAL SUBQ SCH (16:40)
[2021-01-28] MEDS: Divalproex (12 HR) 500 MG TABLET PO SCH (20:26)
[2021-01-29] MEDS ORDERED: Ketorolac 15 MG/ML VIAL IVP ONE (00:06)
[2021-01-29] MEDS: rOPINIRole 0.25 MG TABLET PO SCH ×2 (03:12→19:52)
[2021-01-29] MEDS: Ipratropium/Albuterol Neb 3 ML IH SCH ×4 (04:30→20:49)
[2021-01-29] MEDS: Pantoprazole 40 MG VIAL IVP SCH ×2 (05:44→16:45)
[2021-01-29] MEDS: ceFAZolin 3,000 MG in 0.9 % Sodium Chloride 100 ML IVPB SCH (05:45)
[2021-01-29 06:10] LABS: Basophils % 0.6 %; Eosinophils # 0.2 K/mcL (0.0-0.6); Eosinophils % 3.1 %; Hematocrit 28.8 % (37.5-50.1); Hemoglobin 8.5 g/dL (12.9-16.9); Immature Granulocytes % 0.6 % (0-4); Lymphocytes # 1.9 K/mcL (0.6-4.6); Lymphocytes % 39.3 %; Mean Corpuscular HGB Conc 29.5 g/dL (31.6-35.5); Mean Corpuscular Volume 91.4 fL (83.0-100.0); Mean Platelet Volume 9.4 fL (9.4-12.4); Monocytes # 0.6 K/mcL (0.0-1.3); Monocytes % 11.5 %; Neutrophils # 2.2 K/mcL (1.6-8.9); Platelet Count 264 K/mcL (140-400); Red Blood Count 3.15 M/mcL (4.19-5.50); Red Cell Distribution Width 17.7 % (11.5-14.5); Segmented Neutrophils % 44.9 %; White Blood Count 4.9 K/mcL (4.3-11.1)
[2021-01-29 06:52] LABS: BUN/Creatinine Ratio 26 (6-26); Blood Urea Nitrogen 22 mg/dL (8-23); Calcium 8.4 mg/dL (8.6-10.3); Carbon Dioxide 37 mEq/L (23-29); Chloride 98 mEq/L (98-107); Glucose 107 mg/dL (70-105); Magnesium 1.7 mg/dL (1.6-2.6); Osmolality,Calculated 292 (280-300); Phosphorous 3.8 mg/dL (2.7-4.5); Potassium 4.3 mEq/L (3.5-5.1); Sodium 139 mEq/L (136-145); eGFR For African Americans > 60 (> 60); eGFR For Non-African Americans > 60 (> 60)
[2021-01-29] MEDS: Budesonide/Formoterol 160/4.5 1 PUFF INH IH SCH ×3 (07:24→20:46)
[2021-01-29] MEDS: Loratadine 10 MG TABLET PO SCH (07:51)
[2021-01-29] MEDS: allopurinoL 300 MG TABLET PO SCH (07:51)
[2021-01-29] MEDS: Lactobacillus 1 EACH CAP.SPRINK PO SCH ×2 (07:51→19:52)
[2021-01-29] MEDS: amLODIPine 5 MG TABLET PO SCH (07:52)
[2021-01-29] MEDS: Pregabalin 75 MG CAPSULE PO SCH ×2 (07:52→19:53)
[2021-01-29] MEDS: predniSONE 20 MG TABLET PO SCH (07:52)
[2021-01-29] MEDS: Insulin LISPRO 300 UNITS/3 ML VIAL SUBQ SCH ×4 (07:52→19:53)
[2021-01-29] MEDS: carBAMazepine 200 MG TABLET PO SCH ×2 (07:52→19:52)
[2021-01-29] MEDS: Chlorhexidine Rinse 15 ML MOUTHWASH MM SCH ×2 (07:52→19:53)
[2021-01-29] MEDS: Cholecalciferol (D-3) 1,000 UNIT (25MCG) TABLET PO SCH (07:52)
[2021-01-29] MEDS: Bumetanide 1 MG TABLET PO SCH ×2 (07:52→15:31)
[2021-01-29] MEDS: Aspirin Enteric Coated 81 MG Tablet PO SCH (07:52)
[2021-01-29] MEDS: Insulin DETEMIR 100 UNIT/ML X5UNITS SUBQ SCH ×2 (07:56→19:53)
[2021-01-29] MEDS: *HR* OxyCODONE Immed Rel 5 MG TABLET PO PRN ×3 (07:56→23:11)
[2021-01-29] MEDS: Piperacillin/Tazobactam 3.375 GM in 0.9 % Sodium Chloride Mini Bag 100 ML IVPB SCH ×3 (09:18→23:11)
[2021-01-29] MEDS: Baclofen 10 MG TABLET PO SCH ×2 (15:31→19:52)
[2021-01-29] MEDS: Divalproex (12 HR) 500 MG TABLET PO SCH (19:52)
[2021-01-30 03:40] LABS: Basophils % 0.4 %; Eosinophils # 0.2 K/mcL (0.0-0.6); Eosinophils % 2.3 %; Hematocrit 28.4 % (37.5-50.1); Hemoglobin 8.6 g/dL (12.9-16.9); Immature Granulocytes % 0.6 % (0-4); Lymphocytes # 2.1 K/mcL (0.6-4.6); Lymphocytes % 26.6 %; Mean Corpuscular HGB Conc 30.3 g/dL (31.6-35.5); Mean Corpuscular Hemoglobin 27.4 pg (28.0-33.3); Mean Corpuscular Volume 90.4 fL (83.0-100.0); Mean Platelet Volume 10.1 fL (9.4-12.4); Monocytes # 0.9 K/mcL (0.0-1.3); Monocytes % 11.4 %; Neutrophils # 4.5 K/mcL (1.6-8.9); Platelet Count 295 K/mcL (140-400); Red Blood Count 3.14 M/mcL (4.19-5.50); Red Cell Distribution Width 17.4 % (11.5-14.5); Segmented Neutrophils % 58.7 %
[2021-01-30 03:43] LABS: White Blood Count 7.7 K/mcL (4.3-11.1)
[2021-01-30] MEDS: Ipratropium/Albuterol Neb 3 ML IH SCH ×3 (03:47→15:39)
[2021-01-30] MEDS: *HR* OxyCODONE Immed Rel 5 MG TABLET PO PRN (04:22)
[2021-01-30] MEDS: Pantoprazole 40 MG VIAL IVP SCH (04:22)
[2021-01-30] MEDS: Budesonide/Formoterol 160/4.5 1 PUFF INH IH SCH (07:49)
[2021-01-30] MEDS: Insulin LISPRO 300 UNITS/3 ML VIAL SUBQ SCH ×2 (07:51→12:59)
[2021-01-30] MEDS: Chlorhexidine Rinse 15 ML MOUTHWASH MM SCH (09:04)
[2021-01-30] MEDS: Baclofen 10 MG TABLET PO SCH (09:04)
[2021-01-30] MEDS: Aspirin Enteric Coated 81 MG Tablet PO SCH (09:04)
[2021-01-30] MEDS: Pregabalin 75 MG CAPSULE PO SCH (09:04)
[2021-01-30] MEDS: Cholecalciferol (D-3) 1,000 UNIT (25MCG) TABLET PO SCH (09:05)
[2021-01-30] MEDS: Loratadine 10 MG TABLET PO SCH (09:05)
[2021-01-30] MEDS: Lactobacillus 1 EACH CAP.SPRINK PO SCH (09:05)
[2021-01-30] MEDS: Bumetanide 1 MG TABLET PO SCH (09:05)
[2021-01-30] MEDS: carBAMazepine 200 MG TABLET PO SCH (09:05)
[2021-01-30] MEDS: allopurinoL 300 MG TABLET PO SCH (09:05)
[2021-01-30] MEDS: amLODIPine 5 MG TABLET PO SCH (09:05)
[2021-01-30] MEDS: predniSONE 20 MG TABLET PO SCH (09:06)
[2021-01-30] MEDS: Piperacillin/Tazobactam 3.375 GM in 0.9 % Sodium Chloride Mini Bag 100 ML IVPB SCH (09:06)
[2021-01-30] MEDS: Insulin DETEMIR 100 UNIT/ML X5UNITS SUBQ SCH (09:07)
[2021-01-30 13:02] LABS: Influenza A PCR Negative (Negative); Influenza B PCR Negative (Negative); Resp. Syncytial Virus PCR Negative (Negative)
[2021-01-30 13:11] LABS: SARS-CoV-2 by PCR (In House) Negative (Negative)
[2021-01-30 14:32] VITALS: BP 180/85; PULSE 88; TEMP 98.7; O2SAT 98
== END 2021-01-30 17:04 | DRG 291 ==
LOC: 3BNU 18:11 → EMEROOARM 18:11 → 3BNU 01-26 00:22 → SUATTDRO 01-26 04:11
PROVIDERS: ADMIT Student in an Organized Health Care Education/Training Program; ATTEND Student in an Organized Health Care Education/Training Program